=== PATIENT | female | born 1985 | race Caucasian/White ===

== ENCOUNTER 2024-10-29 21:00 | Emergency (ER) | payer OTHER, SELFPAY ==
[2024-10-29 21:04] VITALS: BP 126/88; PULSE 102; TEMP 36.5; O2SAT 98; BMI 53.0
--- NOTE | 2024-10-29 21:13 | CT_ITS ---
[address] [address] Patient Name: ARCHANA ABRAMS MRN: [id number] date: 1985 Sex: F Assigned Patient Location: ER Current Patient Location: ER Accession/Order Number: [id number] Exam Date: 10/29/2024 21:26 Report Date: 10/29/2024 21:44 At the request of: RODRIGO GARCIA Procedure: CT head/brain wo con EXAM: CT head/brain wo con HISTORY: headache COMPARISON: None. TECHNIQUE: Axial CT scans through the head were obtained without IV contrast administration. Dose reduction techniques were achieved by using: automated exposure control and/or adjustment of mA and /or kV according to patient size and/or use of iterative reconstruction technique. FINDINGS: There is no acute intracranial hemorrhage or abnormal extra-axial fluid collection. No mass effect or midline shift is seen. There is no evidence of large acute territorial infarction. There is no hydrocephalus. To the limit of CT, the posterior fossa appears unremarkable. The calvaria and extra cranial soft tissues are unremarkable. The visualized orbits show no abnormality. The visualized paranasal sinuses show no air-fluid level. Mastoid air cells are clear. CT/CT head/brain wo con IMPRESSION: No acute intracranial process. Electronically authenticated by: MOHIT RODRIGUEZ Date: 10/29/2024 21:44
--- NOTE | 2024-10-29 21:15 | ED.GENADUL1 ---
HPI HPI - General Adult General Chief complaint: Headache Stated complaint: HEADACHE Time Seen by Provider: 10/29/24 21:02 Source: patient Mode of arrival: walk-in Limitations: no limitations History of Present Illness HPI narrative: Left-sided headache Patient presents with waxing and waning headache that started 2 weeks ago, localized to the left side of her head and behind her left eye. She said that over time the headache is steadily been increasing but does admit that when she takes [id number] medications for the pain such as Excedrin, Tylenol, ibuprofen, the pain does go away for some period of time -anywhere from an hour to several hours. Her concern is that the pain keeps coming back and that each time it comes back it seems to be worse. No fever or chills. She did develop some nasal congestion and a mild cough yesterday. She did not have any injury to the head or neck preceding the onset of the headache and also did not have any URI symptoms preceding the headache. No associated visual change or aura either preceding or associated with the headache when she gets it. No nausea, vomiting. No muscle aches. She had previously been diagnosed with migraines but has not had a migraine type headache for several years until this 1 started 2 weeks ago. At no point was the pain explosive or the worst headache of her life. She currently rates her pain 6 out of 10 Related Data Previous Rx's ?Medication ?Instructions ?Recorded ondansetron 4 mg disintegrating 4 mg PO Q6H PRN headache #20 tabs 10/29/24 tablet Allergies Allergy/AdvReac Type Severity Reaction Status Date / Time No Known Drug Allergies Allergy Verified 10/29/24 21:04 Opioid HPI Opioid Management Most Recent Opioid Data: No Data to Display PFSH PFSH Social History Little interest or pleasure in doing things: not at all Feeling down, depressed, or hopeless: not at all Exam Narrative Exam Narrative: Nurses notes and vital signs reviewed and patient is not hypoxic. afebrile General: Well-appearing and in no apparent distress. Skin: Warm, dry, no pallor noted. No rash. Head: Normocephalic, atraumatic. Neck: Supple, non-tender. No nuchal rigidity. No lymphadenopathy. No meningismus Eye: Pupils are equal, round and EOMI. No scleral icterus. No nystagmus Ears, Nose, Mouth, and Throat: TM are clear, no posterior oropharynx erythema or nasal mucosal hypertrophy, uvula is mid-line Oral mucosa is moist Cardiovascular: Regular Rate and Rhythm without murmur, gallop or rub. Respiratory: No accessory muscle use or respiratory distress. Lungs are clear to auscultation, no wheezing, rales or rhonchi Musculoskeletal: normal ROM Neurological: A&O x4. No cranial nerve dysfunction observed. No truncal ataxia. Moves all extremities. Sensation intact. Psychiatric: Cooperative and interactive. Normal mood and affect. Constitutional Vital Signs, click to edit/add: Last Vital Signs Temp 97.7 F 10/29/24 21:04 Pulse 102 H 10/29/24 21:04 Resp 16 10/29/24 21:04 BP 126/88 10/29/24 21:04 Pulse Ox 98 10/29/24 21:04 O2 Del Method Room Air 10/29/24 21:04 Course Vital Signs Vital signs: Vital Signs Temperature 97.7 F 10/29/24 21:04 Pulse Rate 102 H 10/29/24 21:04 Respiratory Rate 16 10/29/24 21:04 Blood Pressure 126/88 10/29/24 21:04 Pulse Oximetry 98 10/29/24 21:04 Oxygen Delivery Method Room Air 10/29/24 21:04 Temperature 97.7 F 10/29/24 21:04 Pulse Rate 102 H 10/29/24 21:04 Respiratory Rate 16 10/29/24 21:04 Blood Pressure 126/88 10/29/24 21:04 Pulse Oximetry 98 10/29/24 21:04 Oxygen Delivery Method Room Air 10/29/24 21:04 Medical Decision Making MDM Narrative Medical decision making narrative: Due to the duration and steadily worsening of the patient's pain, she was sent for noncontrast CT scan of the brain. She received oral dissolvable Zofran, oral Toradol, oral prednisone 40 mg to try and break her headache CT scan of the brain did not show any acute worrisome pathology such as intracranial hemorrhage or mass. On recheck at 2200, the patient told me that her headache was decreased. She and i discussed her results, response to treatment and I gave her reassurance. She was discharged home with a prescription for odt zofran. She can see her PCP for follow up.. Imaging Data CT scan - head: Attestation: I have reviewed the pertinent imaging results. Radiologist's impression: ITS Impressions Head CT 10/29/24 21:13 IMPRESSION: No acute intracranial process. Electronically authenticated by: MOHIT RODRIGUEZ Date: 10/29/2024 21:44 Discharge Plan Discharge Chief Complaint: Headache Clinical Impression: Headache Patient Disposition: Home, Self-Care Time of Disposition Decision: 22:06 Prescriptions / Home Meds: New ondansetron 4 mg tablet,disintegrating 4 mg PO Q6H PRN (Reason: headache) Qty: 20 0RF Print Language: Mauritian Instructions: Acute Headache (ED) Referrals: [place] [Primary Care Provider] - 1 week
[2024-10-29] MEDS: PREDNISONE 20 MG TABLET 40 MG PO (21:38)
[2024-10-29] MEDS: ONDANSETRON 4 MG RAPDIS TABLET SL (21:39)
[2024-10-29] MEDS: KETOROLAC TROMETHAMINE 10 MG TABLET PO (21:39)
== END 2024-10-29 22:20 | disposition home or self-care (01) ==
PROVIDERS: Emergency Provider Emergency Medicine
DX: R51.9 Headache, unspecified (principal)
CPT/HCPCS: 70450; 99284; J7512; Q0162

== ENCOUNTER 2025-02-08 09:09 | Emergency (ER) | payer BC, OTHER, SELFPAY ==
[2025-02-08] VITALS (14 sets, daily range): BP systolic 136–149; BP diastolic 76–97; PULSE 77–93; TEMP 36.9; O2SAT 94–97; BMI 52.3
--- NOTE | 2025-02-08 09:31 | ECG_ITS ---
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 Measurements Intervals [place] Rate: 82 P: 47 WI: 150 QRS: 50 QRSD: 94 T: 57 QT: 404 QTc: 443 Interpretive Statements 1100 Sinus rhythm 9110 normal ECG No previous ECG available for comparison Electronically Signed On 02-08-2025 22:55:42 EDT by BETO PEMBERTON M.D.
--- NOTE | 2025-02-08 09:32 | ED.GENADUL1 ---
HPI HPI - General Adult General Chief complaint: Chest Pain Stated complaint: CHEST PAINS HEART PALPUTATIONS Time Seen by Provider: 02/08/25 09:18 Source: patient Mode of arrival: walk-in History of Present Illness HPI narrative: 39-year-old female presents for chest pain which began this morning. It is dull and it is continuous and it is on the left side of her chest. She has had this numerous times in the past and she states she has had numerous workups for it and nothing was ever found. She has been under a lot of stress recently. No cough or injury. Related Data Home Medications ?Medication ?Instructions ?Recorded ?Confirmed citalopram 20 mg tablet (Celexa) 20 mg PO DAILY 02/08/25 02/08/25 Allergies Allergy/AdvReac Type Severity Reaction Status Date / Time No Known Drug Allergies Allergy Verified 02/08/25 09:13 Review of Systems ROS Narrative A ten point review of systems is negative except as noted above. PFSH PFSH Social History Little interest or pleasure in doing things: not at all Feeling down, depressed, or hopeless: not at all Exam Narrative Exam Narrative: Nurses note and vital signs reviewed and patient is not hypoxic. General: The patient appears well and in no apparent distress. Patient is resting comfortably on cart. Skin: Warm, dry, no pallor noted. There is no rash noted. Head: Normocephalic, atraumatic Eye: Normal conjunctiva, no drainage Ears, Nose, Mouth, and Throat: oral mucosa is moist. Nares patent. Cardiovascular: Regular Rate and Rhythm Respiratory: Patient is in no distress, no accessory muscle use, lungs are clear to auscultation, no wheezing, rales or rhonchi Back: non-tender, GI: Soft and nontender Musculoskeletal: The patient has no evidence of calf tenderness, no pitting edema, symmetrical pulses noted bilaterally Neurological: A&O, normal speech Psychiatric: Cooperative Constitutional Vital Signs, click to edit/add: Last Vital Signs Temp 98.5 F 02/08/25 09:14 Pulse 82 02/08/25 10:20 Resp 19 02/08/25 10:20 BP 149/95 H 02/08/25 10:15 Pulse Ox 95 02/08/25 10:20 O2 Del Method Room Air 02/08/25 09:14 Course Vital Signs Vital signs: Vital Signs Temperature 98.5 F 02/08/25 09:14 Pulse Rate 82 02/08/25 09:14 Respiratory Rate 16 02/08/25 09:14 Blood Pressure 147/76 H 02/08/25 09:14 Pulse Oximetry 97 02/08/25 09:14 Oxygen Delivery Method Room Air 02/08/25 09:14 Temperature 98.5 F 02/08/25 09:14 Pulse Rate 82 02/08/25 10:20 Respiratory Rate 19 02/08/25 10:20 Blood Pressure 149/95 H 02/08/25 10:15 Pulse Oximetry 95 02/08/25 10:20 Oxygen Delivery Method Room Air 02/08/25 09:14 Medical Decision Making MDM Narrative Medical decision making narrative: Her workup is negative including troponin. I suspect that this may be due to stress. There is no evidence of cardiac or pulmonary etiology. Treatment diagnosis and follow-up were discussed with the patient. Differential Diagnosis Differential Diagnosis: Chest pain, myocardial infarction, pneumothorax, anxiety Lab Data Lab results reviewed: Yes I reviewed the patient's lab results Labs: Lab Results 02/08/25 Range/Units 09:30 WBC 10.8 (4.0-11.0) 10^3/uL RBC 4.68 (4.20-5.40) 10^6/uL Hgb 13.5 (12.0-16.0) g/dL Hct 39.8 (36.0-48.0) % MCV 85.0 (81.0-99.0) fL MCH 28.8 (26.7-34.0) pg MCHC 33.9 (29.9-35.2) g/dL RDW 13.7 (11.0-15.0) % Plt Count 230 (150-450) 10^3/uL MPV 8.5 L (9.5-13.5) fL Neut % (Auto) 58.0 (43.0-75.0) % Lymph % (Auto) 31.3 (20.5-60.0) % [place] % (Auto) 7.9 (1.7-12.0) % Eos % (Auto) 1.7 (0.9-7.0) % Baso % (Auto) 0.6 (0.2-2.0) % Neut # (Auto) 6.3 (1.4-6.5) 10^3/uL Lymph # (Auto) 3.4 (1.2-3.8) 10^3/uL [place] # (Auto) 0.9 H (0.3-0.8) 10^3/uL Eos # (Auto) 0.2 (0.0-0.7) 10^3/uL Baso # (Auto) 0.1 (0.0-0.1) 10^3/uL Abs Immat Gran (auto) 0.05 H (0.00-0.03) 10^3/uL Imm/Tot Granulo (auto) 0.5 (0.0-0.5) % Sodium 139 (136-145) mmol/L Potassium 3.6 (3.5-5.1) mmol/L Chloride 103 (98-107) mmol/L Carbon Dioxide 26.4 (21.0-32.0) mmol/L Anion Gap 13.2 BUN 10.0 (7.0-18.0) mg/dL Creatinine 0.76 (0.55-1.02) mg/dL Est GFR ( Amer) >60 (>=60 mL/min/1.73m^2) Est GFR (Non-Af Amer) >60 (>=60 mL/min/1.73m^2) BUN/Creatinine Ratio 13.2 Glucose 115 H (74-106) mg/dL Calcium 8.9 (8.5-10.1) mg/dL Troponin I High Sens <4.0 L (4.0-51.3) pg/mL Imaging Data Chest x-ray: Radiologist's impression: No plain film evidence of an acute cardiopulmonary process ECG Data Attestation: I personally reviewed and interpreted this ECG as follows: (EKG on my interpretation shows normal sinus rhythm with rate of 82 and no acute change) Discharge Plan Discharge Chief Complaint: Chest Pain Clinical Impression: Chest pain Patient Disposition: Home, Self-Care Time of Disposition Decision: 10:26 Condition: Good Mode of Transportation: Private Vehicle Prescriptions / Home Meds: No Action citalopram [Celexa] 20 mg tablet 20 mg PO DAILY Print Language: Maldivian Instructions: Chest Pain (ED) Referrals: [facility] [Physician, Internal Medicine] - 1 week
[2025-02-08 09:44] LABS: Basophils Absolute Auto 0.1 10^3/uL (0.0-0.1); Basophils Percent Auto 0.6 % (0.2-2.0); Eosinophils Absolute Auto 0.2 10^3/uL (0.0-0.7); Eosinophils Percent Auto 1.7 % (0.9-7.0); Hematocrit 39.8 % (36.0-48.0); Hemoglobin 13.5 g/dL (12.0-16.0); Immature Granulocytes Abs Auto 0.05 10^3/uL (0.00-0.03); Immature Granulocytes Pct Auto 0.5 % (0.0-0.5); Lymphocytes Absolute Auto 3.4 10^3/uL (1.2-3.8); Lymphocytes Percent Auto 31.3 % (20.5-60.0); Mean Corpuscular HGB Conc 33.9 g/dL (29.9-35.2); Mean Corpuscular Hemoglobin 28.8 pg (26.7-34.0); Mean Platelet Volume 8.5 fL (9.5-13.5); Monocytes Absolute Auto 0.9 10^3/uL (0.3-0.8); Monocytes Percent Auto 7.9 % (1.7-12.0); Neutrophils Absolute Auto 6.3 10^3/uL (1.4-6.5); Platelet Count 230 10^3/uL (150-450); Red Blood Count 4.68 10^6/uL (4.20-5.40); Red Cell Distribution Width 13.7 % (11.0-15.0); White Blood Count 10.8 10^3/uL (4.0-11.0)
--- OUTSIDE RECORDS SUMMARY | 2025-02-08 09:50 | XMS_ITS | CCD ---
Author Organization [facility] Care Team Providers Care Park Interpreter Name Role Phone NIMCO AMBER METCALF Unavailable Unavailable ARTEMIO MCGUIRE Admitting Unavailable SELF, REFERRED Primary Care Unavailable SELF, REFERRED Referring Unavailable MATTHEW LYNCH Attending Unavailable Po JAIMES, Neptali A Primary Care Provider [phone] Po JAIMES, Neptali Reeves Primary Care Provider [phone] PO, NEPTALI A Primary Care Unavailable ANTONETTE WHITEHEAD Referring Unavailable BEIDELSCHIES, NEPTALI A Primary Care Unavailable BEIDELSCHIES, NEPTALI A Primary Care Unavailable JOHANA SAGASTUME Attending Unavailable BEIDELSCHIES, NEPTALI A Primary Care Unavailable MATUSANA ROSA SOLANO Attending Unavaila ble MATUSZYNANA ROSA ANTONY Attending Unavaila ble MATUSZYNANA ROSA ANTONY Referring Unavaila ble BEIDELSCHIES, NEPTALI A Primary Care Unavailable SMITH MENDEZ Attending Unavailable BEIDELSCHIES, NEPTALI A Referring Unavailable BEIDELSCHIES, NEPTALI A Primary Care Unavailable BEIDELSCHIES, NEPTALI A Referring Unavailable BEIDELSCHIES, NEPTALI A Primary Care Unavailable BEIDELSCHIES, NEPTALI A Referring Unavailable BEIDELSCHIES, NEPTALI A Primary Care Unavailable Po JAIMES, Neptali A Primary Care Provider [phone] Allergies Allergy Classification Reported Allergen(s) Allergy Type Date of Onset Reaction(s) Facility (3 sources) nickel; Translations: [NICKEL] Drug Allergy 06-26-2022 Rash [facility] Medications Current Medications Medication Drug Class(es) Dates Sig (Normalized) Sig (Original) acetaminophen 500 mg oral tablet (2 sources) take 1 tablet by mouth every six hours as needed for pain acetaminophen (TYLENOL) 500 MG tablet Take 500 mg by mouth every 6 hours as needed for Pain. 0 Active ibuprofen 800 mg oral tablet (4 sources) Nonsteroidal Anti-inflammatory Drug Start: 10-25-2016 take 1 tablet by mouth every eight hours as needed ibuprofen (ADVIL,MOTRIN) 800 mg tablet Take 1 tablet (800 mg total) by mouth every 8 (eight) hours as needed. 0 10/25/2016 Active lidocaine 0.04 mg/mg medicated patch (1 source) Antiarrhythmic, Amide Local Anesthetic Start: 06-10-2022 End: 07-10-2022 lidocaine 4 % external patch Place 1 patch onto the skin every [address] 1 patch onto the skin daily 12 hours on, 12 hours off. 30 patch 0 06/10/2022 07/10/2022 Active naproxen 500 mg oral tablet (4 sources) Nonsteroidal Anti-inflammatory Drug Start: 06-10-2022 End: 09-20-2022 take 1 tablet by mouth twice daily as needed for pain naproxen (NAPROSYN) 500 mg tablet TAKE 1 TABLET BY MOUTH TWICE DAILY NEEDED FOR PAIN WITH MEALS 0 06/10/2022 Active oseltamivir 75 mg oral capsule (2 sources) Neuraminidase Inhibitor Start: 09-20-2022 End: 09-25-2022 take 1 capsule by mouth twice daily oseltamivir (TAMIFLU) 75 MG capsule Take 1 capsule by mouth 2 times daily for 5 days 9 capsule 0 09/20/2022 09/25/2022 Active Completed/Discontinued Medications Medication Drug Class(es) Dates Sig (Normalized) Sig (Original) acetaminophen 325 mg / HYDROcodone bitartrate 5 mg oral tablet (1 source) Opioid Agonist Start: 06-10-2022 End: 06-10-2022 HYDROcodone-acetami nophen (NORCO) 5-325 MG per tablet 1 tablet cholecalciferol 0.05 mg oral tablet (2 sources) Vitamin D End: 10-09-2023 take 2 tablets by mouth in the morning cholecalciferol, vitamin D3, 2,000 units tablet Take 4,000 Units by mouth in the morning. 0 10/09/2023 Discontinued cyclobenzaprine hydrochloride 10 mg oral tablet (3 sources) Muscle Relaxant Start: 06-10-2022 End: 10-09-2023 take 1 tablet by mouth three times daily as needed cyclobenzaprine (FLEXERIL) 10 mg tablet Take 10 mg by mouth 3 (three) times a day as needed. 0 06/10/2022 10/09/2023 Discontinued iopamidol (ISOVUE-370) 76 % injection 75 mL (1 source) Start: 06-10-2022 End: 06-10-2022 iopamidol (ISOVUE-370) 76 % injection 75 mL 1 ml ketorolac tromethamine 30 mg/ml cartridge (1 source) Nonsteroidal Anti-inflammatory Drug, Cyclooxygenase Inhibitor Start: 06-10-2022 End: 06-10-2022 ketorolac (TORADOL) injection 30 mg metFORMIN hydrochloride 500 mg oral tablet (4 sources) Biguanide Start: 03-25-2021 End: 10-09-2023 metFORMIN (GLUCOPHAGE) 500 mg tablet 500 mg 3 (three) times a day. 0 03/25/2021 10/09/2023 Discontinued metFORMIN (GLUCO PHAGE) 1000 MG tablet Take 1,500 mg by mouth 2 times daily (with meals) 0 Active 2 ml orphenadrine citrate 30 mg/ml injection (1 source) Muscle Relaxant Start: 06-10-2022 End: 06-10-2022 orphenadrine (NORFLEX) injection 60 mg Problems Active Problems Problem Classification Problem Date Documented Da te Episodic/Chronic Administrative/social admission (2 sources) Encounter for pre-employment examination; Translations: [Encounter for pre-employment examination] Onset: 05-29-2023 Episodic Genitourinary symptoms and ill-defined conditions (1 source) Hematuria, unspecified; Translations: [Hematuria, unspecified] Onset: 07-04-2024 Episodic Malaise and fatigue (1 source) Other fatigue; Translations: [Other fatigue] Onset: 07-04-2024 Episodic Other endocrine disorders (3 sources) Polycystic ovary syndrome; Translations: [Polycystic ovarian syndrome] Onset: 05-04-2017 Chronic Other endocrine disorders (1 source) Polycystic ovarian syndrome; Translations: [Polycystic ovarian syndrome] Onset: 06-10-2022 Chronic Other endocrine disorders (2 sources) Hyperinsulinism; Translations: [Other hypoglycemia] Onset: 06-29-2017 06-29-2017 Chronic Other female genital disorders (2 sources) Abnormal uterine bleeding; Translations: [Abnormal uterine and vaginal bleeding, unspecified] Onset: 05-04-2017 05-04-2017 Chronic Other hematologic conditions (1 source) Personal history of diseases of the blood and blood-forming organs and certain disorders involving the immune mechanism; Translations: [Personal history of diseases of the blood and blood-forming organs and certain disorders involving the immune mechanism] Onset: 07-04-2024 Episodic Other nutritional; endocrine; and metabolic disorders (2 sources) Body mass index 40+ - severely obese; Translations: [Body mass index (BMI) 50.0-59.9, adult] Onset: 05-04-2017 05-04-2017 Chronic Other nutritional; endocrine; and metabolic disorders (2 sources) Insulin resistance; Translations: [Insulin resistance] Onset: 05-04-2017 05-04-2017 Chronic Unclassified (1 source) Foot/ankle pain Onset: 02-10-2024 Unclassified (1 source) Cough, unspecified; Translations: [Cough, unspecified] Onset: 10-12-2023 Past or Other Problems Problem Classification Problem Date Documented Da te Episodic/Chronic Abdominal pain (2 sources) Pain in pelvis; Translations: [Pelvic and perineal pain] Onset: 06-18-2022 06-18-2022 Episodic Influenza (4 sources) Influenza; Translations: [Influenza due to unidentified influenza virus with other respiratory manifestations] Onset: 09-20-2022 Episodic Nonspecific chest pain (6 sources) Precordial pain; Translations: [Chest pain] Onset: 03-27-2021 03-27-2021 Episodic Other connective tissue disease (1 source) Foot pain Onset: 02-10-2024 Episodic Other lower respiratory disease (1 source) Shortness of breath; Translations: [Shortness of breath] Onset: 10-12-2023 Episodic Other non-traumatic joint disorders (1 source) Pain in right ankle and joints of right foot; Translations: [Pain in right ankle and joints of right foot] Onset: 02-10-2024 Episodic Other non-traumatic joint disorders (1 source) Ankle pain Onset: 02-10-2024 Episodic Ovarian cyst (2 sources) Cyst of bilateral ovaries; Translations: [Unspecified ovarian cyst, right side] Onset: 06-18-2022 Resolved: 07-15-2022 07-15-2022 Episodic Sprains and strains (2 sources) Strain of back muscle; Translations: [Strain of muscle, fascia and tendon of lower back, initial encounter] Onset: 06-10-2022 Episodic Unclassified (2 sources) Onset: 06-12-2022 06-12-2022 Viral infection (2 sources) Disease caused by 2019-nCoV; Translations: [COVID-19] Onset: 03-28-2021 03-28-2021 Episodic Results Test Name Value Interpretation Reference Range Facility COMPLETE BLOOD COUNTon 07-04 Erythrocyte distribution width (RBC) [Ratio] 14.5 % Normal 11.5-15.0 [facility] Comment on above: Performed By: #### C MP, CBC #### [facility] ([id number]) [address], [address] [place] [address] Hematocrit (Bld) [Volume fraction] 38.5 % Normal 35-47 [facility] Comment on above: Performed By: #### C MP, CBC #### [facility] ([id number]) [address], [address] [place] [address] Hemoglobin (Bld) [Mass/Vol] 13.4 g/dL Normal 11.7-15.5 [facility] Comment on above: Performed By: #### C MP, CBC #### [facility] ([id number]) [address], [address] [place] [address] MCH (RBC) [Entitic mass] 29.7 pg Normal 27-34 [facility] Comment on above: Performed By: #### C MP, CBC #### [facility] ([id number]) [address], [address] [place] [address] MCHC (RBC) [Mass/Vol] 34.7 g/dL Normal 32-36 [facility] Comment on above: Performed By: #### C MP, CBC #### [facility] ([id number]) [address], [address] [place] [address] MCV (RBC) [Entitic vol] 86 fL Normal 80-100 [facility] Comment on above: Performed By: #### C MP, CBC #### [facility] ([id number]) [address], [address] [place] [address] Platelet mean volume (Bld) [Entitic vol] 7.7 fL Normal 7-12 [facility] Comment on above: Performed By: #### C MP, CBC #### [facility] ([id number]) [address], [address] [place] [address] Platelets (Bld) [#/Vol] 222 10*3/uL Normal 150-450 [facility] Comment on above: Performed By: #### C MP, CBC #### [facility] ([id number]) [address], [address] [place] [address] RBC COUNT 4.50 X10E12/L Normal 3.80-5.20 [facility] Comment on above: Performed By: #### C MP, CBC #### [facility] ([id number]) [address], [address] [place] [address] WBC (Bld) [#/Vol] 9.1 10*3/uL Normal 4.0-11.0 [facility] Comment on above: Performed By: #### C MP, CBC #### [facility] ([id number]) [address], [address] [place] [address] COMPREHENSIVE METABOLIC PANE Vitor 07-04-2024 Albumin [Mass/Vol] 3.8 g/dL Normal 3.2-5.3 [facility] Comment on above: Performed By: #### C MP, CBC #### [facility] ([id number]) [address], [address] [place] [address] ALP [Catalytic activity/Vol] 62 U/L Normal 39-130 [facility] Comment on above: Performed By: #### C MP, CBC #### [facility] ([id number]) [address], [address] [place] [address] ALT [Catalytic activity/Vol] 14 U/L Normal 0-31 [facility] Comment on above: Performed By: #### C MP, CBC #### [facility] ([id number]) [address], [address] [place] [address] Anion gap [Moles/Vol] 11 mmol/L Normal 5-15 [facility] Comment on above: Performed By: #### C MP, CBC #### [facility] ([id number]) [address], [address] [place] [address] AST [Catalytic activity/Vol] 14 U/L Normal 0-41 [facility] Comment on above: Performed By: #### C MP, CBC #### [facility] ([id number]) [address], [address] [place] [address] Bilirubin [Mass/Vol] 0.4 mg/dL Normal 0.3-1.2 [facility] Comment on above: Performed By: #### C CAPRICE, CBC #### [facility] ([id number]) [address], [address] [place] [address] Calcium [Mass/Vol] 8.6 mg/dL Normal 8.5-10.5 [facility] Comment on above: Performed By: #### C MP, CBC #### [facility] ([id number]) [address], [address] [place] [address] Chloride [Moles/Vol] 105 mmol/L Normal 98-109 [facility] Comment on above: Performed By: #### C MP, CBC #### [facility] ([id number]) [address], [address] [place] [address] CO2 [Moles/Vol] 24 mmol/L Normal 22-32 [facility] Comment on above: Performed By: #### C MP, CBC #### [facility] ([id number]) [address], [address] [place] [address] Creatinine [Mass/Vol] 0.51 mg/dL Normal 0.40-1.00 [facility] Comment on above: Result Comment: METH OD TRACEABLE TO IDMS STANDARD Performed By: #### C MP, CBC #### [facility] ([id number]) [address], [address] [place] [address] eGFR (CKD-EPI) NON-RACE DEPENDENT >90 Normal >59 [facility] Comment on above: Result Comment: Reported eGFR is based on the CKD-EPI 2020 equation that does not use a race coefficient. Performed By: #### C MP, CBC #### [facility] ([id number]) [address], [address] [place] [address] Glucose [Mass/Vol] 97 mg/dL Normal 65-99 [facility] Comment on above: Performed By: #### C MP, CBC #### [facility] ([id number]) [address] [address] [place] [address] Potassium [Moles/Vol] 3.5 mmol/L Normal 3.5-5.0 [facility] Comment on above: Performed By: #### C MP, CBC #### [facility] ([id number]) [address], [address] [place] [address] Protein [Mass/Vol] 6.9 g/dL Normal 6.0-8.0 [facility] Comment on above: Performed By: #### C MP, CBC #### [facility] ([id number]) [address] [address] [place] [address] Sodium [Moles/Vol] 140 mmol/L Normal 134-146 [facility] Comment on above: Performed By: #### C MP, CBC #### [facility] ([id number]) [address], [address] [place] [address] Urea nitrogen [Mass/Vol] 8 mg/dL Normal 5-23 [facility] Comment on above: Performed By: #### C MP, CBC #### [facility] ([id number]) [address] [place] [address] URINALYSISon 07-04-2024 Bilirubin Ql (U) Negative Normal NEG [facility] Comment on above: Performed By: #### U A #### [facility] ([id number]) [address], [address] [place] [address] BLOOD/HGB Small Abnormal NEG [facility] Comment on above: Performed By: #### U A #### [facility] ([id number]) [address] [place] [address] Color (U) YELLOW Normal YELLOW [facility] Comment on above: Performed By: #### U A #### [facility] ([id number]) [address], [address] [place] [address] Glucose Ql (U) Negative Normal NEG [facility] Comment on above: Performed By: #### U A #### [facility] ([id number]) [address], [address] [place] [address] Ketones Ql (U) Negative Normal NEG [facility] Comment on above: Performed By: #### U A #### [facility] ([id number]) [address], [address] [place] [address] Leukocyte esterase Test strip Ql (U) Negative Normal NEG [facility] Comment on above: Performed By: #### U A #### [facility] ([id number]) [address], [address] [place] [address] MUCOUS PRESENT Abnormal NONE [facility] Comment on above: Performed By: #### U A #### [facility] ([id number]) [address], [address] [place] [address] Nitrite Ql (U) Negative Normal NEG [facility] Comment on above: Performed By: #### U A #### [facility] ([id number]) [address], [address] [place] [address] pH (U) 6.5 [pH] Normal 5.0-8.5 [facility] Comment on above: Performed By: #### U A #### [facility] ([id number]) [address], [address] [place] [address] Protein Ql (U) Trace Abnormal NEG [facility] Comment on above: Performed By: #### U A #### [facility] ([id number]) [address], [address] [place] [address] R.B.CELLS 3 /hpf Normal 0-5 [facility] Comment on above: Performed By: #### U A #### [facility] ([id number]) [address], [address] [place] [address] Specific gravity (U) [Rel density] 1.017 Normal 1.003-1.035 [facility] Comment on above: Performed By: #### U A #### [facility] ([id number]) [address], [address] [place] [address] SQUAMOUS EPITHELIUM 4 /hpf Normal 0-5 [facility] Comment on above: Performed By: #### U A #### [facility] ([id number]) [address], [address] [place] [address] TURBIDITY CLEAR Normal CLEAR [facility] Comment on above: Performed By: #### U A #### [facility] ([id number]) [address], [address] [place] [address] Urobilinogen (U) [Mass/Vol] mg/dL Normal <1.1 [facility] Comment on above: Performed By: #### U A #### [facility] ([id number]) [address], [address] [place] [address] W.B.CELLS 3 /hpf Normal 0-5 [facility] Comment on above: Performed By: #### U A #### [facility] ([id number]) [address] [place] [address] XR ANKLE RT MIN 3 VWSon 01-26 XR ANKLE RT MIN 3 VWS XR ANKLE RT MIN 3 VWS . Right ankle: HISTORY: Ankle pain post injury. 3 views the right ankle were obtained. Calcaneal spurring noted. Large enthesophyte present at the Achilles insertion. Ankle mortise is intact. IMPRESSION: No acute findings. 4 Finalized by Rubin Junior MD on 02/10/2024 1:50 PM Normal [facility] XR FOOT RT MIN 3 VWSon 02-09 XR FOOT RT MIN 3 VWS XR FOOT RT MIN 3 VWS 3 views of the right foot dated 02/10/2024 at 1:44 PM INDICATION: Pain along the lateral aspect of the right foot. FINDINGS: Comparison is 03/02/2011. Ossification by the proximal fourth metatarsal, could be due to old injury. Heterotopic ossification also seen at the insertion of the gastrocnemius consistent with tendinopathy. Degenerative changes in the ankle and in the midfoot. No acute fractures or subluxation is seen. No lucencies or destructive changes. If pain persists, consider MRI. IMPRESSION: 1. Degenerative changes and heterotopic ossification noted along the proximal fourth metatarsal and at the insertion of the gastrocnemius. No acute fracture is seen. 7 Finalized by Alejandra Saldana MD on 02/10/2024 1:57 PM Normal [facility] XR CHEST 2 VWSon 10-12-2023 XR CHEST 2 VWS XR CHEST 2 VWS CHEST RADIOGRAPH 10/12/2023 12:02 PM CLINICAL INDICATION: Cough, shortness of breath for 2 weeks TECHNIQUE: Frontal and lateral views of the chest. COMPARISON: Multiple priors, most recent 07/14/2023 FINDINGS: Lungs: Lungs are free of infiltrate. No pleural effusion or pneumothorax. Heart: Heart size is normal. No vascular congestion. Mediastinum: Mediastinal contour is normal. Other: No displaced fractures or destructive bone lesions identified. IMPRESSION: 1. No acute process. 7 Finalized by Bimal Borden MD on 10/12/2023 3:31 PM Normal [facility] Measles (Rubeola) Imon 06-01 Measles (Rubeola) Im 1.74 Normal >1.09 [facility] Comment on above: Result Comment: Interpretation: IMMUNE Reference Range: <0.91 Not Immune 0.91-1.09 Equivocal >1.09 Immune Performed By: #### C OVRB #### [facility] [address] [place] [address] [place] [address] Founder: Carlos Mckoy MD Mumps,Immun,Abon 06-01-2023 Mumps,Immun,Ab 2.34 Normal >1.09 [facility] Comment on above: Result Comment: Interpretation: IMMUNE Reference Range: <0.91 Not Immune 0.91-1.09 Equivocal >1.09 Immune Performed By: #### C OVRB #### [address] [place], [place] [id number] Founder: Carlos Mckoy MD VZ Immunityon 06-01-2023 VZ Immunity 1.21 Normal >1.[address] [facility] Comment on above: Result Comment: Interpretation: IMMUNE Reference Range: <0.91 Not Immune 0.91-1.09 Equivocal >1.09 Immune Performed By: #### C OVRB #### [address] [place] [address] Founder: Carlos Mckoy MD Hep B Surf Abon 05-30-2023 Hep B Surf Ab 213.00 mIU/mL High <10 [facility] Comment on above: Result Comment: REFERENCE RANGE: <10.0 NON-REACTIVE/NOT IMMUNE >=10.0 REACTIVE/IMMUNE The presence of Anti-HBs usually indicates recovery from acute or chronic HBV infection or acquired immunity from HBV vaccination. Positive results (quantitative levels of equal to or greater than 10.0 mIU/mL) indicate an adequate immunity from previous infection, vaccination or immune globulin adminstration. Anti-HBc would help define positivity due to Hepatitis B infection. Performed By: #### C OVRB #### [facility] [address] [place] [address] Founder: Carlos Mckoy MD Rubella Ab, IgGon 05-30-2023 Rubella Ab, IgG >500.0 Normal [facility] Comment on above: Result Comment: REFERENCE RANGE: <5.0 NON-REACTIVE (non-immune) 5.0 TO 9.9 EQUIVOCAL >=10.0 REACTIVE (immune) Performed By: #### C OVRB #### [facility] [address] [place] [address] Founder: Carlos Mckoy MD COVID-19, Rapidon 09-20-2022 SARS-CoV-2 (COVID-19) RNA JEAN MARIE+probe Ql (Unsp spec) Not detected Not Detected [facility] Comment on above: Rapid NAAT: The specimen is NEGATIVE for SARS-CoV-2, the novel coronavirus associated with COVID-19. The ID NOW COVID-19 assay is designed to detect the virus that causes COVID-19 in patients with signs and symptoms of infection who are suspected of COVID-19. An individual without symptoms of COVID-19 and who is not shedding SARS-CoV-2 virus would expect to have a negative (not detected) result in this assay. Negative results should be treated as presumptive and, if inconsistent with clinical signs and symptoms or necessary for patient management, should be tested with an alternative molecular assay. Negative results do not preclude SARS-CoV-2 infection and should not be used as the sole basis for patient management decisions. Fact sheet for Healthcare Providers: https://www.fda.gov/media/875541/download Fact sheet for Patients: https://www.fda.gov/media/126789/download Methodology: Isothermal Nucleic Acid Amplification Specimen Description .NASOPHARYNGEAL SWAB [facility] Flu A/B Ag Detectionon 09-20 Flu A Ag Detection Positive Abnormal NEG [facility] Comment on above: Result Comment: for Influenza A Antigen Performed By: #### F LUABA #### [facility] [address] [place] [address] Founder: Carlos Mckoy MD Flu B Ag Detection Negative Normal NEG [facility] Comment on above: Result Comment: for Influenza B Antigen. Performed By: #### F LUABA #### [facility] [address] [place] [address] Founder: Carlos Mckoy MD Rapid influenza A/B antigens on 09-20-2022 Flu A Antigen Positive Abnormal NEGATIVE [facility] Comment on above: for Influenza A Anti gen Flu B Antigen Negative NEGATIVE [facility] Comment on above: for Influenza B Anti gen. Interpretation and review of laboratory results Abnormal [facility] [id number] 09-20-2022 SARS-CoV-2 (COVID-19) RNA JEAN MARIE+probe Ql (Unsp spec) Not detected Normal NOTDET [facility] Comment on above: Result Comment: Rapid NAAT: The specimen is NEGATIVE for SARS-CoV-2, the novel coronavirus associated with COVID-19. The ID NOW COVID-19 assay is designed to detect the virus that causes COVID-19 in patients with signs and symptoms of infection who are suspected of COVID-19. An individual without symptoms of COVID-19 and who is not shedding SARS-CoV-2 virus would expect to have a negative (not detected) result in this assay. Negative results should be treated as presumptive and, if inconsistent with clinical signs and symptoms or necessary for patient management, should be tested with an alternative molecular assay. Negative results do not preclude SARS-CoV-2 infection and should not be used as the sole basis for patient management decisions. Fact sheet for Healthcare Providers: https://www.fda.gov/media/670998/download Fact sheet for Patients: https://www.fda.gov/media/120156/download Methodology: Isothermal Nucleic Acid Amplification Performed By: #### C OVRB #### [facility] [address] [place] [address] Founder: Carlos Mckoy MD Strep Gr A Direct Agon 09-20 Strep Gr A Direct Ag Negative Normal NEG [facility] Comment on above: Result Comment: Rapi d Strep A negative. A negative Rapid Group A Strep Screen result does not rule out the possibility of Group A Streptococci in the specimen. A Group A Strep DNA test is available upon request. Performed By: #### C OVRB #### [facility] [address] [place] [address] Founder: Carlos Mckoy MD Source .THROAT SWAB Normal [facility] Comment on above: Performed By: #### C OVRB #### [facility] [address] [place] [address] Founder: Carlos Mckoy MD Strep Screen Group A Throato n 09-20-2022 S. pyogenes Ag Ql (Throat) Negative NEGATIVE [facility] Comment on above: Rapid Strep A negati ve. A negative Rapid Group A Strep Screen result does not rule out the possibility of Group A Streptococci in the specimen. A Group A Strep DNA test is available upon request. Source .THROAT SWAB [facility] XR CHEST (SINGLE VIEW FRONTA L)on 09-20-2022 XR CHEST (SINGLE VIEW FRONTAL) EXAMINATION: ONE XRAY VIEW OF THE CHEST 09/20/2022 1:34 am COMPARISON: 12/22/2017 HISTORY: ORDERING SYSTEM PROVIDED HISTORY: sob cough TECHNOLOGIST PROVIDED HISTORY: sob cough FINDINGS: The lungs are clear. The cardiac and mediastinal contours are normal. There is no pleural effusion or pneumothorax. No acute osseous abnormality is identified. IMPRESSION: No acute cardiopulmonary abnormality. Interpreted by: Denis Brannon MD Signed by: Denis Brannon MD 09/20/22 Final result Normal [facility] No acute cardiopulmonary abnormality. [facility] CONSOLIDATED EXAMINATION: ONE XRAY VIEW OF THE CHEST 09/20/2022 1:34 am COMPARISON: 12/22/2017 HISTORY: ORDERING SYSTEM PROVIDED HISTORY: sob cough TECHNOLOGIST PROVIDED HISTORY: sob cough FINDINGS: The lungs are clear. The cardiac and mediastinal contours are normal. There is no pleural effusion or pneumothorax. No acute osseous abnormality is identified. [facility] RIS CONSOLIDATED Denis Brannon MD - 09/20/2022 EXAMINATION: ONE XRAY VIEW OF THE CHEST 09/20/2022 1:34 am COMPARISON: 12/22/2017 HISTORY: ORDERING SYSTEM PROVIDED HISTORY: sob cough TECHNOLOGIST PROVIDED HISTORY: sob cough FINDINGS: The lungs are clear. The cardiac and mediastinal contours are normal. There is no pleural effusion or pneumothorax. No acute osseous abnormality is identified. IMPRESSION: No acute cardiopulmonary abnormality. [employer] Phone: Radiology Study observation (narrative) [employer] Phone: XR CHEST (SINGLE VIEW FRONTA L)Ordered By: Denis Brannon on 09-20-2022 [employer] Phone: US DUP ABD PEL RETRO SCROT L IMITEDon 06-11-2022 US DUP ABD PEL RETRO SCROT LIMITED EXAMINATION: PELVIC ULTRASOUND 06/10/2022 TECHNIQUE: Transabdominal and transvaginal pelvic duplex ultrasound using B-mode/baker scaled imaging, Doppler spectral analysis and color flow Doppler was obtained. COMPARISON: CT 06/10/2022 HISTORY: ORDERING SYSTEM PROVIDED HISTORY: Pain, Rule out Torsion TECHNOLOGIST PROVIDED HISTORY: Pain, Rule out Torsion FINDINGS: Measurements: Uterus: 8.3 x 5.2 x 3.8 cm Endometrial stripe: 13 mm Right Ovary: 2.6 x 2.5 x 1.5 cm Left Ovary: 4.7 x 3.5 x 2.3 cm Ultrasound Findings: Uterus: Uterus demonstrates normal myometrial echotexture. Nabothian cysts. Endometrial stripe: Endometrial stripe is within normal limits. Right Ovary: Right ovary is within normal limits. There is normal arterial and venous Doppler flow. Simple appearing cyst measuring up to 6.6 cm appears paraovarian. Left Ovary: Left ovary is within normal limits. There is normal arterial and venous Doppler flow. Simple appearing cyst measuring up to 8 cm, which may be paraovarian. Free Fluid: No evidence of free fluid. IMPRESSION: 1. No evidence for torsion. 2. Simple appearing pelvic cysts are favored to be paraovarian, for which follow-up ultrasound in 3-6 months is recommended. RECOMMENDATIONS: 8 cm left paraovarian probable benign cyst. Recommend follow-up pelvic US in 3-6 months. Reference: Radiology 2019 Jul;293(5):[id number] Interpreted by: Denis Howe MD Signed by: Denis Howe MD 06/11/22 Final result Normal [facility] Basic Metabolic Panelon 05-29 Anion gap [Moles/Vol] 9 mmol/L 9 - 17 mmol/L [facility] Calcium [Mass/Vol] 9.9 mg/dL 8.6 - 10. 4 mg/dL [facility] Chloride [Moles/Vol] 102 mmol/L 98 - 10 7 mmol/L [facility] CO2 [Moles/Vol] 27 mmol/L 20 - 31 mmol/L [facility] Creatinine [Mass/Vol] 0.49 mg/dL Low 0.5 - 0.9 mg/dL [facility] GFR >60 60 - PI NF mL/min [facility] GFR Non- >60 60 - PINF mL/min [facility] Glucose [Mass/Vol] 101 mg/dL High 70 - 99 mg/dL [facility] Interpretation and review of laboratory results Abnormal [facility] Potassium [Moles/Vol] 4.0 mmol/L 3.7 - 5.3 mmol/L [facility] Sodium [Moles/Vol] 138 mmol/L 135 - 144 mmol/L [facility] Urea nitrogen (BldV) [Mass/Vol] 8 mg/dL 6 - 20 mg/dL [facility] Urea nitrogen/Creatinine (Bld) [Mass ratio] 16 9 - 20 [facility] Basic Metabolic Profon 06-10 (cont.) Normal [facility] Comment on above: Result Comment: Aver age GFR for 30-39 years old: 107 mL/min/1.73sq m Chronic Kidney Disease: <60 mL/min/1.73sq m Kidney failure: <15 mL/min/1.73sq m eGFR calculated using average adult body mass. Additional eGFR calculator available at: http://www.[employer].com/multiple_crcl_2012.htm Performed By: #### C OVRB #### [facility] [address] [place], [place] [id number] Founder: Carlos Mckoy MD Anion gap [Moles/Vol] 9 mmol/L Normal 9-17 [facility] Comment on above: Performed By: #### C OVRB #### [facility] [address] [place] [address] Founder: Carlos Mckoy MD BUN/CRE Ratio 16 Normal 9-20 [facility] Comment on above: Performed By: #### C OVRB #### [address] [place] [address] Founder: Carlos Mckoy MD Calcium [Mass/Vol] 9.9 mg/dL Normal 8.6-10.[address] [facility] Comment on above: Performed By: #### C OVRB #### [address] [place] [address] Founder: Carlos Mckoy MD Chloride [Moles/Vol] 102 mmol/L Normal 98-107 [facility] Comment on above: Performed By: #### C OVRB #### [facility] [address] [place] [address] [place] [address] Founder: Carlos Mckoy MD CO2 [Moles/Vol] 27 mmol/L Normal 20-31 [facility] Comment on above: Performed By: #### C OVRB #### [facility] [address] [place] [address] Dr[address] [place], [place] [id number] Founder: Carlos Mckoy MD Creatinine [Mass/Vol] 0.49 mg/dL Low 0.50-0.90 [facility] Comment on above: Performed By: #### C OVRB #### [facility] [address] [place] [address] Dr[address] [place], [place] [id number] Founder: Carlos Mckoy MD GFR, Amer >60 Normal >60 [facility] Comment on above: Performed By: #### C OVRB #### [facility] [address] [place], [place] [id number] Founder: Carlos Mckoy MD GFR,non Amer >60 Normal >60 [facility] Comment on above: Performed By: #### C OVRB #### [facility] [address] [place] [id number] Founder: Carlos Mckoy MD Glucose [Mass/Vol] 101 mg/dL High 70-[address] [facility] Comment on above: Performed By: #### C OVRB #### [facility] [address] [place] [address] Dr[address] [place], [place] [id number] Founder: Carlos Mckoy MD Potassium [Moles/Vol] 4.0 mmol/L Normal 3.7-5.3 [facility] Comment on above: Performed By: #### C OVRB #### [facility] [address] [place] [address] Dr. [place], [place] [id number] Founder: Carlos Mckoy MD Sodium [Moles/Vol] 138 mmol/L Normal 135-[address] [facility] Comment on above: Performed By: #### C OVRB #### [facility] [address] [place], [place] [id number] Founder: Carlos Mckoy MD Staging: Normal [facility] Comment on above: Result Comment: Stag e 1: Some kidney damage normal GFR Stage 2: Mild kidney damage GFR 60-89 Stage 3: Moderate kidney damage GFR 30-59 Stage 4: Severe kidney damage GFR 15-29 Stage 5: Severe kidney damage GFR <15 ESRD - chronic treatment by dialysis or transplant Performed By: #### C OVRB #### [facility] [address] [place] [id number] Founder: Carlos Mckoy MD Urea nitrogen [Mass/Vol] 8 mg/dL Normal 6-[address] [facility] Comment on above: Performed By: #### C OVRB #### [facility] [address] [place] [address] Founder: Carlos Mckoy MD CBC with Auto Differentialon 06-10-2022 Absolute Eos # 0.40 [facility] Absolute Immature Granulocyte 0.12 [facility] Absolute Lymph # 3.13 [facility] Absolute [place] # 1.08 [facility] Basophils (Bld) [#/Vol] 0.07 10*3/uL [facility] Basophils/100 WBC (Bld) 1 % 0 - 2 % B ON [facility] Eosinophils/100 WBC (Bld) 3 % 1 - 4 % [facility] Hematocrit (Bld) [Volume fraction] 40.2 % 36.3 - 47.1 % [facility] Hemoglobin (Bld) [Mass/Vol] 13.2 g/dL 11.9 - 15.1 g/dL [facility] Immature granulocytes/100 WBC (Bld) 1 % High 0 [facility] Interpretation and review of laboratory results Abnormal [facility] Lymphocytes/100 WBC (Bld) 25 % 24 - 43 % [facility] MCH (RBC) [Entitic mass] 28.6 pg 25.2 - 33.5 pg [facility] MCHC (RBC) [Mass/Vol] 32.8 g/dL 28.4 - 34.8 g/dL [facility] MCV (RBC) [Entitic vol] 87.0 fL 82.6 - 102.9 fL [facility] Monocytes/100 WBC (Bld) 9 % 3 - 12 % B ON [facility] NRBC Automated 0.0 0.0 per 100 WBC [facility] Platelet distribution width (Bld) [Ratio] 13.7 % 11.8 - 14.4 % [facility] Platelet mean volume (Bld) [Entitic vol] 8.7 fL 8.1 - 13.5 fL [facility] Platelets (Bld) [#/Vol] 255 10*3/uL [facility] RBC (Bld) [#/Vol] 4.62 10*6/uL 3.95 - 5.1 1 m/uL [facility] Segmented neutrophils/100 WBC (Bld) 61 % 36 - 65 % [facility] Segs Absolute 7.56 [facility] WBC (Bld) [#/Vol] 12.4 10*3/uL High [facility] CBC with Diffon 06-10-2022 Abs. Basophil 0.07 k/uL Normal 0.00-0.20 [facility] Comment on above: Performed By: #### C DP, BMP #### [facility] [address] [place] [address] [place] [id number] Founder: Carlos Mckoy MD Abs.Imm.Granulocyte 0.12 k/uL Normal 0.00-0.[address] [facility] Comment on above: Performed By: #### C DP, BMP #### [facility] [address] [place], [facility] Founder: Carlos Mckoy MD Abs.Neutrophil (Seg) 7.56 k/uL Normal 1.50-8.10 [facility] Comment on above: Performed By: #### C DP, BMP #### [address] [place], [facility] Founder: Carlos Mckoy MD Basophils/100 WBC (Bld) 1 % Normal 0-2 [facility] Comment on above: Performed By: #### C DP, BMP #### [facility] [address] [place] [address] Founder: Carlos Mckoy MD Eosinophils (Bld) [#/Vol] 0.40 10*3/uL Normal 0.00-0.[address] [facility] Comment on above: Performed By: #### C DP, BMP #### [facility] [address] [place] [address] Dr. [place], [facility] Founder: Carlos Mckoy MD Eosinophils/100 WBC (Bld) 3 % Normal 1-[address] [facility] Comment on above: Performed By: #### C DP, BMP #### [address] [place], [facility] Founder: Carlos Mckoy MD Erythrocyte distribution width (RBC) [Ratio] 13.7 % Normal 11.8-14.[address] [facility] Comment on above: Performed By: #### C DP, BMP #### [address] [place], [facility] Founder: Carlos Mckoy MD Hematocrit (Bld) [Volume fraction] 40.2 % Normal 36.3-47.[address] [facility] Comment on above: Performed By: #### C DP, BMP #### [address] [place], [facility] Founder: Carlos Mckoy MD Hemoglobin (Bld) [Mass/Vol] 13.2 g/dL Normal 11.9-15.[address] [facility] Comment on above: Performed By: #### C DP, BMP #### [address] [place], [facility] Founder: Carlos Mckoy MD Immature granulocytes/100 WBC (Bld) 1 % High [address] [facility] Comment on above: Performed By: #### C DP, BMP #### [address] [place], [facility]83 Founder: Carlos Mckoy MD Lymphocytes (Bld) [#/Vol] 3.13 10*3/uL Normal 1.10-3.[address] [facility] Comment on above: Performed By: #### C DP, BMP #### [address] [place], [facility] Founder: Carlos Mckoy MD Lymphocytes/100 WBC (Bld) 25 % Normal 24-[address] [facility] Comment on above: Performed By: #### C DP, BMP #### [facility] [address] [place] [address] Founder: Carlos Mckoy MD MCH (RBC) [Entitic mass] 28.6 pg Normal 25.2-33.[address] [facility] Comment on above: Performed By: #### C DP, BMP #### [facility] [address] [place] [address] Founder: Carlos Mckoy MD MCHC (RBC) [Mass/Vol] 32.8 g/dL Normal 28.4-34.8 [facility] Comment on above: Performed By: #### C DP, BMP #### [address] [place] [address] Founder: Carlos Mckoy MD MCV (RBC) [Entitic vol] 87.0 fL Normal 82.6-102.9 [facility] Comment on above: Performed By: #### C DP, BMP #### [address] [place] [address] Founder: Carlos Mckoy MD Monocytes (Bld) [#/Vol] 1.08 10*3/uL Normal 0.10-1.[address] [facility] Comment on above: Performed By: #### C DP, BMP #### [facility] [address] [place] [address] Founder: Carlos Mckoy MD Monocytes/100 WBC (Bld) 9 % Normal 3-[address] [facility] Comment on above: Performed By: #### C DP, BMP #### [facility] [address] [place] [address] Founder: Carlos Mckoy MD Neutrophil (Seg) 61 % Normal 36-65 [facility] Comment on above: Performed By: #### C DP, BMP #### [address] [place], [place] [id number] Founder: Carlos Mckoy MD NRBC Automated 0.0 per 100 WBC Normal 0.[address] [facility] Comment on above: Performed By: #### C DP, BMP #### [address] [place], [facility]83 Founder: Carlos Mckoy MD Platelet mean volume (Bld) [Entitic vol] 8.7 fL Normal 8.1-13.[address] [facility] Comment on above: Performed By: #### C DP, BMP #### [address] [place], [facility]83 Founder: Carlos Mckoy MD Platelets (Bld) [#/Vol] 255 10*3/uL Normal 138-[address] [facility] Comment on above: Performed By: #### C DP, BMP #### [address] [place], [place] [id number] Founder: Carlos Mckoy MD RBC (Bld) [#/Vol] 4.62 10*6/uL Normal 3.95-5.[address] [facility] Comment on above: Performed By: #### C DP, BMP #### [address] [place], [place] [id number] Founder: Carlos Mckoy MD WBC (Bld) [#/Vol] 12.4 10*3/uL High 3.5-11.[address] [facility] Comment on above: Performed By: #### C DP, BMP #### [address] [place] [address] Founder: Carlos Mckoy MD CT ABDOMEN PELVIS W IV CONTR Kaiden 06-10-2022 CT ABDOMEN PELVIS W IV CONTRAST EXAMINATION: CT OF THE ABDOMEN AND PELVIS WITH CONTRAST 06/10/2022 1:59 pm TECHNIQUE: CT of the abdomen and pelvis was performed with the administration of intravenous contrast. Multiplanar reformatted images are provided for review. Automated exposure control, iterative reconstruction, and/or weight based adjustment of the mA/kV was utilized to reduce the radiation dose to as low as reasonably achievable. COMPARISON: 01/12/2015 HISTORY: ORDERING SYSTEM PROVIDED HISTORY: left lower abd pain. TECHNOLOGIST PROVIDED HISTORY: left lower abd pain. Decision Support Exception - unselect if not a suspected or confirmed emergency medical condition->Emergenc y Medical Condition (MA) FINDINGS: Evaluation is limited by the patient's body habitus, which creates a great deal streak artifact, especially on the right. Lower Chest: Visualized lungs are clear. Base of the heart unremarkable. Organs: There is diffuse hepatic steatosis. Hepatomegaly noted. No focal hepatic abnormality identified. Portal vein is patent. Gallbladder unremarkable. Spleen unremarkable. Adrenals unremarkable. Pancreas unremarkable. No acute or suspicious renal abnormality identified. GI/Bowel: No large bowel abnormalities are identified. Appendix is normal. Distal esophagus and stomach unremarkable. Duodenal sweep and the remainder of the small bowel are unremarkable. Pelvis: Large adnexal cysts are seen bilaterally. On the left, largest measures 8.0 cm. On the right largest measures 6.9 cm. Uterus is unremarkable in appearance. No free pelvic fluid. Urinary bladder unremarkable. Peritoneum/Retroper itoneum: Abdominal aorta normal in caliber. No lymphadenopathy. Bones/Soft Tissues: No acute or suspicious bony abnormalities are identified. Evaluation the lumbar spine is limited with CT technique. There does appear to be degenerative disc disease which is greatest at L4-L5, where a moderate circumferential disc bulge/osteophyte complex is present, leading to at least moderate if not high-grade central canal stenosis. With that said, it appears very similar when compared to the previous exam from 2014. IMPRESSION: Large bilateral adnexal cysts, largest on the left measuring up to 8 cm. Given the patient's symptomatology, further evaluation with pelvic ultrasound is recommended to ensure that there is no underlying torsion. Degenerative disc disease, greatest L4-L5, where there is at least moderate if not high-grade central canal stenosis. It does appear similar when compared to the previous exam from December 2014. Hepatic steatosis with hepatomegaly. Interpreted by: Cornell Stearns MD Signed by: Cornell Stearns MD 06/10/22 Final result Normal [facility] CT ABDOMEN PELVIS W IV CONTR AST Additional Contrast? Noneon 06-10-2022 Large bilateral adnexal cysts, largest on the left measuring up to 8 cm. Given the patient's symptomatology, further evaluation with pelvic ultrasound is recommended to ensure that there is no underlying torsion. Degenerative disc disease, greatest L4-L5, where there is at least moderate if not high-grade central canal stenosis. It does appear similar when compared to the previous exam from December 2014. Hepatic steatosis with hepatomegaly. [facility] EXAMINATION: CT OF THE ABDOMEN AND PELVIS WITH CONTRAST 06/10/2022 1:59 pm TECHNIQUE: CT of the abdomen and pelvis was performed with the administration of intravenous contrast. Multiplanar reformatted images are provided for review. Automated exposure control, iterative reconstruction, and/or weight based adjustment of the mA/kV was utilized to reduce the radiation dose to as low as reasonably achievable. COMPARISON: 01/12/2015 HISTORY: ORDERING SYSTEM PROVIDED HISTORY: left lower abd pain. TECHNOLOGIST PROVIDED HISTORY: left lower abd pain. Decision Support Exception - unselect if not a suspected or confirmed emergency medical condition->Emergenc y Medical Condition (MA) FINDINGS: Evaluation is limited by the patient's body habitus, which creates a great deal streak artifact, especially on the right. Lower Chest: Visualized lungs are clear. Base of the heart unremarkable. Organs: There is diffuse hepatic steatosis. Hepatomegaly noted. No focal hepatic abnormality identified. Portal vein is patent. Gallbladder unremarkable. Spleen unremarkable. Adrenals unremarkable. Pancreas unremarkable. No acute or suspicious renal abnormality identified. GI/Bowel: No large bowel abnormalities are identified. Appendix is normal. Distal esophagus and stomach unremarkable. Duodenal sweep and the remainder of the small bowel are unremarkable. Pelvis: Large adnexal cysts are seen bilaterally. On the left, largest measures 8.0 cm. On the right largest measures 6.9 cm. Uterus is unremarkable in appearance. No free pelvic fluid. Urinary bladder unremarkable. Peritoneum/Retroper itoneum: Abdominal aorta normal in caliber. No lymphadenopathy. Bones/Soft Tissues: No acute or suspicious bony abnormalities are identified. Evaluation the lumbar spine is limited with CT technique. There does appear to be degenerative disc disease which is greatest at L4-L5, where a moderate circumferential disc bulge/osteophyte complex is present, leading to at least moderate if not high-grade central canal stenosis. With that said, it appears very similar when compared to the previous exam from 2014. [facility] RIS CONSOL[facility] Cornell Stearns MD - 06/10/2022 EXAMINATION: CT OF THE ABDOMEN AND PELVIS WITH CONTRAST 06/10/2022 1:59 pm TECHNIQUE: CT of the abdomen and pelvis was performed with the administration of intravenous contrast. Multiplanar reformatted images are provided for review. Automated exposure control, iterative reconstruction, and/or weight based adjustment of the mA/kV was utilized to reduce the radiation dose to as low as reasonably achievable. COMPARISON: 01/12/2015 HISTORY: ORDERING SYSTEM PROVIDED HISTORY: left lower abd pain. TECHNOLOGIST PROVIDED HISTORY: left lower abd pain. Decision Support Exception - unselect if not a suspected or confirmed emergency medical condition->Emergenc y Medical Condition (MA) FINDINGS: Evaluation is limited by the patient's body habitus, which creates a great deal streak artifact, especially on the right. Lower Chest: Visualized lungs are clear. Base of the heart unremarkable. Organs: There is diffuse hepatic steatosis. Hepatomegaly noted. No focal hepatic abnormality identified. Portal vein is patent. Gallbladder unremarkable. Spleen unremarkable. Adrenals unremarkable. Pancreas unremarkable. No acute or suspicious renal abnormality identified. GI/Bowel: No large bowel abnormalities are identified. Appendix is normal. Distal esophagus and stomach unremarkable. Duodenal sweep and the remainder of the small bowel are unremarkable. Pelvis: Large adnexal cysts are seen bilaterally. On the left, largest measures 8.0 cm. On the right largest measures 6.9 cm. Uterus is unremarkable in appearance. No free pelvic fluid. Urinary bladder unremarkable. Peritoneum/Retroper itoneum: Abdominal aorta normal in caliber. No lymphadenopathy. Bones/Soft Tissues: No acute or suspicious bony abnormalities are identified. Evaluation the lumbar spine is limited with CT technique. There does appear to be degenerative disc disease which is greatest at L4-L5, where a moderate circumferential disc bulge/osteophyte complex is present, leading to at least moderate if not high-grade central canal stenosis. With that said, it appears very similar when compared to the previous exam from 2014. IMPRESSION: Large bilateral adnexal cysts, largest on the left measuring up to 8 cm. Given the patient's symptomatology, further evaluation with pelvic ultrasound is recommended to ensure that there is no underlying torsion. Degenerative disc disease, greatest L4-L5, where there is at least moderate if not high-grade central canal stenosis. It does appear similar when compared to the previous exam from December 2014. Hepatic steatosis with hepatomegaly. [facility] O[facility] Work Phone: Radiology Study observation (narrative) TAWNY LOPEZ [facility] [employer] Work Phone: CT ABDOMEN PELVIS W IV CONTR AST Additional Contrast? NoneOrdered By: Cornell Stearns on 06-10-2022 [facility] Work Phone: HCG, ,Urineon 06-10 Beta HCG ( test) Ql (U) Negative Normal NEG [facility] Comment on above: Result Comment: Spec imens with hCG levels near the threshold of the test (25 mIU/mL) may give a negative or indeterminate result. In such cases, another test should be performed with a new specimen in 48-72 hours. If early is suspected clinically in this setting, correlation with quantitative serum b-hCG level is suggested. [facility] [email or web address] has confirmed the use of plasma for this test. This has not been cleared or approved by the U.S. Food and Drug Administration. The FDA has determined that such clearance is not necessary. Performed By: #### U MICAO, UAX, [facility] #### [facility] [address] [place] [address] [place] [address] Founder: Carlos Mckoy MD Laboratory - Chemistry and C hemistry - challengeon 06-10-2022 GFR/1.73 sq M.predicted MDRD (S/P/Bld) [Vol rate/Area] [facility] Comment on above: Average GFR for 30-3 9 years old: 107 mL/min/1.73sq m Chronic Kidney Disease: <60 mL/min/1.73sq m Kidney failure: <15 mL/min/1.73sq m eGFR calculated using average adult body mass. Additional eGFR calculator available at: http://[email or web address]_[email or web address] Stage 1: Some kidney damage normal GFR Stage 2: Mild kidney damage GFR 60-89 Stage 3: Moderate kidney damage GFR 30-59 Stage 4: Severe kidney damage GFR 15-29 Stage 5: Severe kidney damage GFR <15 ESRD - chronic treatment by dialysis or transplant Microscopic Urinalysison Bacteria, UA 1+ Abnormal None [facility] Epithelial Cells UA 0 TO 2 [facility] Interpretation and review of laboratory results Abnormal [facility] Mucus, UA 3+ Abnormal None [facility] RBC, UA 0 TO 2 [facility] WBC, UA 0 TO 2 [facility] , Urineon 2 Beta HCG ( test) Ql (U) Negative NEGATIVE [facility] Comment on above: Specimens with hCG l evels near the threshold of the test (25 mIU/mL) may give a negative or indeterminate result. In such cases, another test should be performed with a new specimen in 48-72 hours. If early is suspected clinically in this setting, correlation with quantitative serum b-hCG level is suggested. [facility] has confirmed the use of plasma for this test. This has not been cleared or approved by the U.S. Food and Drug Administration. The FDA has determined that such clearance is not necessary. [facility] UA w/Reflex Cultureon 2021 Bilirubin, SemiQt,Ur Negative Normal NEG [facility] Comment on above: Performed By: #### U BALJINDER BERUMENX, [facility] #### [facility] [address] [place] [address] Founder: Carlos Mckoy MD Blood, Urine 1+ Abnormal NEG [facility] Comment on above: Performed By: #### U ANGELOBALJINDERX, [facility] #### [facility] [address] [place] [address] Founder: Carlos Mckoy MD Clarity (U) Clear Normal CLEAR [facility] Comment on above: Performed By: #### U ANGELOBALJINDERX, [facility] #### [facility] [address] [place] [address] Founder: Carlos Mckoy MD Color (U) Yellow Normal YEL [facility] Comment on above: Performed By: #### U MICAO, UAX, UHCG #### [facility] [address] [place] [address] Dr[address] [place], [place] [id number] Founder: Carlos Mckoy MD Glucose Ql (U) Negative Normal NEG [facility] in Hospital Comment on above: Performed By: #### U MICAO, UAX, UHCG #### [facility] [address] [place] [address] Dr[address] [place], [place] [id number] Founder: Carlos Mckoy MD Ketones Ql (U) Negative Normal NEG [facility] Comment on above: Performed By: #### U MICAO, UAX, UHCG #### [facility] [address] [place] [address] Dr[address] [place], [place] [id number] Founder: Carlos Mckoy MD Leukocyte esterase Test strip Ql (U) Negative Normal NEG [facility] Comment on above: Performed By: #### U MICAO, UAX, UHCG #### [address] [place], [place] [id number] Founder: Carlos Mckoy MD Nitrite,Ur Negative Normal [facility] Comment on above: Performed By: #### U MICAO, UAX, UHCG #### [address] [place], [place] [id number] Founder: Carlos Mckoy MD PH,Ur 6.5 Normal 5.0-9.[address] [facility] Comment on above: Performed By: #### U MICAO, UAX, UHCG #### [facility] [address] [place] [address] Dr[address] [place], [place] [id number] Founder: Carlos Mckoy MD Protein Ql (U) Negative Normal NEG [facility] in [facility] Comment on above: Performed By: #### U MICAO, UAX, UHCG #### [facility] [address] [place] [address] Dr[address] [place], [place] [id number] Founder: Carlos Mckoy MD Spec. [place],Ur 1.020 Normal 1.010-1.020 [facility] Comment on above: Performed By: #### U ANGELO, UAX, UHCG #### [facility] [address] [place], [place] [id number] Founder: Carlos Mckoy MD Urobilinogen,Ur Normal Normal NORM [facility] Comment on above: Performed By: #### U ANGELO, UAX, CG #### [facility] [address] [place], [place] [id number] Founder: Carlos Mckoy MD US NON OB TRANSVAGINALon US NON OB TRANSVAGINAL EXAMINATION: PELVIC ULTRASOUND 06/10/2022 TECHNIQUE: Transabdominal and transvaginal pelvic duplex ultrasound using B-mode/baker scaled imaging, Doppler spectral analysis and color flow Doppler was obtained. COMPARISON: CT 06/10/2022 HISTORY: ORDERING SYSTEM PROVIDED HISTORY: Pain, Rule out Torsion TECHNOLOGIST PROVIDED HISTORY: Pain, Rule out Torsion FINDINGS: Measurements: Uterus: 8.3 x 5.2 x 3.8 cm Endometrial stripe: 13 mm Right Ovary:2.6 x 2.5 x 1.5 cm Left Ovary: 4.7 x 3.5 x 2.3 cm Ultrasound Findings: Uterus: Uterus demonstrates normal myometrial echotexture. Nabothian cysts. Endometrial stripe: Endometrial stripe is within normal limits. Right Ovary: Right ovary is within normal limits. There is normal arterial and venous Doppler flow. Simple appearing cyst measuring up to 6.6 cm appears paraovarian. Left Ovary: Left ovary is within normal limits. There is normal arterial and venous Doppler flow. Simple appearing cyst measuring up to 8 cm, which may be paraovarian. Free Fluid: No evidence of free fluid. IMPRESSION: 1. No evidence for torsion. 2. Simple appearing pelvic cysts are favored to be paraovarian, for which follow-up ultrasound in 3-6 months is recommended. RECOMMENDATIONS: 8 cm left paraovarian probable benign cyst. Recommend follow-up pelvic US in 3-6 months. Reference: Radiology 2019 Nov;293(2):[id number] Interpreted by: Denis Howe MD Signed by: Denis Howe MD 06/10/22 Final result Normal [facility] 1. No evidence for torsion. 2. Simple appearing pelvic cysts are favored to be paraovarian, for which follow-up ultrasound in 3-6 months is recommended. RECOMMENDATIONS: 8 cm left paraovarian probable benign cyst. Recommend follow-up pelvic US in 3-6 months. Reference: Radiology 2019 Nov;293(2):[id number] [facility] EXAMINATION: PELVIC ULTRASOUND 06/10/2022 TECHNIQUE: Transabdominal and transvaginal pelvic duplex ultrasound using B-mode/baker scaled imaging, Doppler spectral analysis and color flow Doppler was obtained. COMPARISON: CT 06/10/2022 HISTORY: ORDERING SYSTEM PROVIDED HISTORY: Pain, Rule out Torsion TECHNOLOGIST PROVIDED HISTORY: Pain, Rule out Torsion FINDINGS: Measurements: Uterus: 8.3 x 5.2 x 3.8 cm Endometrial stripe: 13 mm Right Ovary:2.6 x 2.5 x 1.5 cm Left Ovary: 4.7 x 3.5 x 2.3 cm Ultrasound Findings: Uterus: Uterus demonstrates normal myometrial echotexture. Nabothian cysts. Endometrial stripe: Endometrial stripe is within normal limits. Right Ovary: Right ovary is within normal limits. There is normal arterial and venous Doppler flow. Simple appearing cyst measuring up to 6.6 cm appears paraovarian. Left Ovary: Left ovary is within normal limits. There is normal arterial and venous Doppler flow. Simple appearing cyst measuring up to 8 cm, which may be paraovarian. Free Fluid: No evidence of free fluid. [facility] Denis Howe MD - 06/10/2022 EXAMINATION: PELVIC ULTRASOUND 06/10/2022 TECHNIQUE: Transabdominal and transvaginal pelvic duplex ultrasound using B-mode/baker scaled imaging, Doppler spectral analysis and color flow Doppler was obtained. COMPARISON: CT 06/10/2022 HISTORY: ORDERING SYSTEM PROVIDED HISTORY: Pain, Rule out Torsion TECHNOLOGIST PROVIDED HISTORY: Pain, Rule out Torsion FINDINGS: Measurements: Uterus: 8.3 x 5.2 x 3.8 cm Endometrial stripe: 13 mm Right Ovary:2.6 x 2.5 x 1.5 cm Left Ovary: 4.7 x 3.5 x 2.3 cm Ultrasound Findings: Uterus: Uterus demonstrates normal myometrial echotexture. Nabothian cysts. Endometrial stripe: Endometrial stripe is within normal limits. Right Ovary: Right ovary is within normal limits. There is normal arterial and venous Doppler flow. Simple appearing cyst measuring up to 6.6 cm appears paraovarian. Left Ovary: Left ovary is within normal limits. There is normal arterial and venous Doppler flow. Simple appearing cyst measuring up to 8 cm, which may be paraovarian. Free Fluid: No evidence of free fluid. IMPRESSION: 1. No evidence for torsion. 2. Simple appearing pelvic cysts are favored to be paraovarian, for which follow-up ultrasound in 3-6 months is recommended. RECOMMENDATIONS: 8 cm left paraovarian probable benign cyst. Recommend follow-up pelvic US in 3-6 months. 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 [employer] [facility] [employer] Work Phone: US NON OB TRANSVAGINALOrdere d By: Denis Howe on 06-10-2022 [facility] Work Phone: Urinalysis with Reflex to Cu ltureon 06-10-2022 Bilirubin Urine Negative NEGATIVE [facility] Color, UA Yellow Yellow [facility] [employer] Glucose, Ur Negative NEGATIVE [facility] [employer] Interpretation and review of laboratory results Abnormal [facility] Ketones Ql (U) Negative NEGATIVE [facility] Leukocyte esterase Test strip Ql (U) Negative NEGATIVE [facility] Nitrite, Urine Negative NEGATIVE [facility] pH, UA 6.5 5 - 9 [facility] Protein, UA Negative NEGATIVE [facility] Specific [place], UA 1.020 1.01 - 1.02 [facility] Turbidity UA Clear Clear [facility] Urine Hgb 1+ Abnormal NEGATIVE [facility] Urobilinogen, Urine Normal Normal [facility] Urinalysis,Microon 2 Bacteria 1+ Abnormal NONE [facility] Comment on above: Performed By: #### U MICAO, UAX, UHCG #### [facility] [address] [place] [address] Founder: Carlos Mckoy MD Epithelial cells LM Ql (Urine sed) 0 TO 2 Normal 0-[address] [facility] Comment on above: Performed By: #### U MICAO, UAX, UHCG #### [facility] [address] [place], [place] [id number] Founder: Carlos Mckoy MD Mucus Strands 3+ Abnormal NONE [facility] Comment on above: Performed By: #### U MICAO, UAX, UHCG #### [facility] [address] [place] [address] Founder: Carlos Mckoy MD Urine RBC's 0 TO 2 Normal 0-[address] [facility] Comment on above: Performed By: #### U MICAO, UAX, UHCG #### [facility] [address] [place], [facility] Founder: Carlos Mckoy MD Urine WBC's 0 TO 2 Normal 0-[address] [facility] Comment on above: Performed By: #### U MICAO, UAX, UHCG #### [facility] [address] [place] [address] Founder: Carlos Mckoy MD APTTon 06-29-2020 aPTT Coag (Bld) [Time] 26.5 s Normal 25.0-35.0 Th e [facility] Comment on above: Result Comment: ALL RESULTS MUST BE INTERPRETED WITH RESPECT TO BLOOD DRAWING ARTIFACT OR DILUTION ERROR OF ANTICOAGULANT AT THE TIME OF SAMPLING. THE APTT SHOULD NOT BE USED TO MONITOR UNFRACTIONATED HEPARIN THERAPY, THIS LABORATORY NO LONGER HAS AN ESTABLISHED THERAPEUTIC RANGE BASED ON THE APTT. IT IS RECOMMENDED THAT THE UFH - HEPARIN ASSAY (ANTI-XA ACTIVITY) BE USED FOR THIS PURPOSE. Performed By: #### 5 7307, 49375, 72176 #### [facility] [address] [place] [address], [facility] BASIC METABOLIC PANELon Calcium [Mass/Vol] 9.3 mg/dL Normal 8.6-10.3 [facility] Comment on above: Performed By: #### 1 5, 87244, 09133 #### [facility] [address] [place] [address], [place] Chloride [Moles/Vol] 104 mmol/L Normal 98-107 [facility] Comment on above: Performed By: #### 1 5, 97235, 48982 #### [facility] [address] [place] [address], [place] CO2 [Moles/Vol] 25 mmol/L Normal 21-31 [facility] Comment on above: Performed By: #### 1 5, 94154, 42297 #### [facility] [address] [place] [address], [place] Creatinine [Mass/Vol] 0.71 mg/dL Normal 0.60-1.20 [facility] Comment on above: Performed By: #### 1 54, 47386, 42197 #### [facility] [address] [place] [address], [place] GFR/1.73 sq M predicted among blacks MDRD (S/P/Bld) [Vol rate/Area] mL/min/{1.73_m2} Normal >60 [facility] Comment on above: Performed By: #### 1 54, 38931, 08360 #### [facility] [address] [place] [address], [place] GFR/1.73 sq M predicted among non-blacks MDRD (S/P/Bld) [Vol rate/Area] mL/min/{1.73_m2} Normal >60 [facility] Comment on above: Performed By: #### 1 54, 41024, 72242 #### [facility] [address] [place] [address], [place] Glucose [Mass/Vol] 99 mg/dL Normal 70-100 [facility] Comment on above: Performed By: #### 1 5, 96924, 31924 #### [facility] [address] [place] [address], [facility] Potassium [Moles/Vol] 3.3 mmol/L Low 3.5-5.1 [facility] Comment on above: Performed By: #### 1 54, 09233, 39728 #### [facility] [address] [place] [address], [facility] Sodium [Moles/Vol] 139 mmol/L Normal 136-145 [facility] Comment on above: Performed By: #### 1 54, 23980, 14070 #### [facility] [address] [facility] [address] Urea nitrogen [Mass/Vol] 15 mg/dL Normal 7-25 [facility] Comment on above: Performed By: #### 1 54, 31416, 89388 #### [facility] [address] [facility]. [address] CBC W/DIFFon 06-29-2020 ABS BASOPHILS 0.1 10*3/uL Normal 0.0-0.2 [facility] Comment on above: Performed By: #### 5 3 #### [facility] [address] [facility] ABS IMM GRANS 0.1 10*3/uL Normal 0.0-0.2 [facility] Comment on above: Performed By: #### 5 0103 #### [facility] [address] [facility]. [address] ABS NEUTROPHILS 5.3 10*3/uL Normal 1.6-7.6 [facility] Comment on above: Performed By: #### 5 3 #### [facility] [address] [place] [address], [facility] Basophils/100 WBC (Bld) 0.7 % Normal 0.0-1.0 T guillermo [facility] Comment on above: Performed By: #### 5 0103 #### [facility] [address] [place] [address], [facility] Eosinophils (Bld) [#/Vol] 0.2 10*3/uL Normal 0.0-0.5 [facility] Comment on above: Performed By: #### 5 0103 #### [facility] [address] [facility] [place] [address], [facility] Eosinophils/100 WBC (Bld) 1.7 % Normal 0.0-6.0 [facility] Comment on above: Performed By: #### 5 0103 #### [facility] [address] [facility] [address] Erythrocyte distribution width (RBC) [Ratio] 14.1 % Normal 11.5-15.0 [facility] Comment on above: Performed By: #### 5 0103 #### [facility] [address] Hematocrit (Bld) [Volume fraction] 41.8 % Normal 36.0-45.0 [facility] Comment on above: Performed By: #### 5 0103 #### [facility] [address] [place] [address], [facility] Hemoglobin (Bld) [Mass/Vol] 14.0 g/dL Normal 12.0-15.0 [facility] Comment on above: Performed By: #### 5 0103 #### [facility] [address] [place] [address], [facility] IMMATURE GRANS 1.3 % High 0.0-1.0 [facility] Comment on above: Performed By: #### 5 0103 #### [facility] [address] [place] [address], [facility] Lymphocytes (Bld) [#/Vol] 3.7 10*3/uL Normal 1.2-4.0 [facility] Comment on above: Performed By: #### 5 0103 #### [facility] [address] [place] [address], [facility] Lymphocytes/100 WBC (Bld) 34.6 % Normal 20.0-45.0 [facility] Comment on above: Performed By: #### 5 3 #### [facility] [address] [place] [address], [facility] MCH (RBC) [Entitic mass] 28.3 pg Normal 27.0-33.0 [facility] Comment on above: Performed By: #### 5 3 #### [facility] [address] [place] [address], [facility] MCHC (RBC) [Mass/Vol] 33.5 g/dL Normal 32.0-35.0 [facility] Comment on above: Performed By: #### 5 3 #### [facility] [address] [place] [address], [facility] MCV (RBC) [Entitic vol] 84.6 fL Normal 82.0-98.0 T [facility] Comment on above: Performed By: #### 5 3 #### [facility] [address] [place] [address], [facility] Monocytes (Bld) [#/Vol] 1.3 10*3/uL High 0.1-1.0 [facility] Comment on above: Performed By: #### 5 3 #### [facility] [address] [place] [address], [facility] MONOS 12.1 % High 5.0-12.0 [facility] Comment on above: Performed By: #### 5 3 #### [facility] [address] [place] [address], [facility] Neutrophils/100 WBC (Bld) 49.6 % Normal 40.0-72.0 [facility] Comment on above: Performed By: #### 5 0103 #### [facility] [address] [facility]. [address] Nucleated RBC/100 WBC (Bld) [Ratio] 0 % Normal 0-0 [facility] Comment on above: Performed By: #### 5 0103 #### [facility] [address] [place] [address], [facility] PLAT CNT 260 10*3/uL Normal 150-400 [facility] Comment on above: Performed By: #### 5 0103 #### [facility] [address] RBC (Bld) [#/Vol] 4.94 10*6/uL Normal 3.80-5.00 [facility] Comment on above: Performed By: #### 5 0103 #### [facility] [address] WBC (Bld) [#/Vol] 10.70 10*3/uL High 4.00-10.60 [facility] Comment on above: Performed By: #### 5 0103 #### [facility] [address] D DIMER TESTon 06-29-2020 D-DIMER TEST <0.27 Normal 0.01-0.49 [facility] Comment on above: Result Comment: D-Di flip values of less than 0.50 ug/ml (FEU) are considered to be a negative predictor of thrombosis. However, the D-Dimer result should be used in conjunction with pretest probability and should not be used alone to diagnose a thrombotic event. Performed By: #### 1 0055, 20886, 07517 #### [facility] [address] ED TOX PANEL URINEon 020 50 THC Negative Normal NEGATIVE [facility] Comment on above: Performed By: #### 3 1763 #### [facility] [address] [place] [address], [facility] BARBITURATES Negative Normal NEGATIVE [facility] Comment on above: Performed By: #### 3 1763 #### [facility] [address] [place] [address], [facility] Benzodiazepines Ql (U) Negative Normal NEGATIVE [facility] e [facility] Comment on above: Performed By: #### 3 1763 #### [facility] [address] [place] [address], [facility] Cocaine Ql (U) Negative Normal NEGATIVE [facility] Comment on above: Performed By: #### 3 1763 #### [facility] [address] [place] [address], [facility] Methadone Ql (U) Negative Normal NEGATIVE [facility] Comment on above: Performed By: #### 3 1763 #### [facility] [address] [place] [address], [facility] MONO AMPHET Negative Normal NEGATIVE The [facility] Comment on above: Performed By: #### 3 1763 #### [facility] [address] [place] [address], [facility] Opiates Ql (U) Negative Normal NEGATIVE [facility] Comment on above: Performed By: #### 3 1763 #### [facility] [address] [place] [address], [facility] Phencyclidine Ql (U) Negative Normal NEGATIVE [facility] Comment on above: Performed By: #### 3 1763 #### [facility] [address] [place] [address], [facility] PROPOXYPHENE Negative Normal NEGATIVE [facility] Comment on above: Performed By: #### 3 1763 #### [facility] [address] [place] [address], [facility] TRICYCLICS Negative Normal NEGATIVE [facility] Comment on above: Performed By: #### 3 1763 #### [facility] [address] [place] [address], [place] LIVER BATTERYon 06-29-2020 Albumin [Mass/Vol] 3.9 g/dL Normal 3.5-5.7 [facility] Comment on above: Performed By: #### 1 0055, 15307, 82464 #### [facility] [address] [place] [address], [facility] ALKALINE PHOSPH 58 IU/L Normal 34-104 [facility] Comment on above: Performed By: #### 1 0055, [id number], [id number] #### [facility] [address] [place] [address], [facility] ALT [Catalytic activity/Vol] 22 U/L Normal 7-52 [facility] Comment on above: Performed By: #### 1 0055, 11543, 56562 #### [facility] [address] [place] [address], [facility] AST [Catalytic activity/Vol] 25 U/L Normal 13-39 [facility] Comment on above: Performed By: #### 1 0055, 14594, 18822 #### [facility] [address] [place] [address], [place] Bilirubin [Mass/Vol] 0.2 mg/dL Low 0.3-1.0 [facility] Comment on above: Performed By: #### 1 0055, 50338, 12476 #### [facility] [address] [place] [address], [place] Bilirubin.direct [Mass/Vol] 0.0 mg/dL Normal 0.0-0.2 [facility] Comment on above: Performed By: #### 1 0055, 02478, 69776 #### [facility] [address] [place] [address], [facility] Protein [Mass/Vol] 7.1 g/dL Normal 6.0-8.3 [facility] Comment on above: Performed By: #### 1 0055, 66277, 94048 #### [facility] [address] [place] [address], [facility] POC URINE PREGNANCYon 2019 Beta HCG ( test) Ql (U) Negative Normal NEGATIVE [facility] Comment on above: Result Comment: Perf ormed in Emergency Department. Performed By: #### 1 0055, 30351, 54650 #### [facility] [address] [place] [address], [facility] PORTABLE CHEST 1 VIEWon PORTABLE CHEST 1 VIEW [facility] Department of Radiology [address] [place] [address] [id number] Patient Name: LUPE ABRAMS : 1985 Sex: F Age: Race: White Pt. Location: [facility] Patient Status: E Ordered Date: 06/29/2020 7:25:00 PM Completed Date: 06/29/2020 07:59 PM Requesting Provider: MATTHEW [place] Attending Provider: ARTEMIO MCGUIRE Report Copy To: Signs & Symptoms: Chest Pain History: See Comments Comments: R/O Infiltrates Exam: PORTABLE CHEST 1 VIEW PORTABLE CHEST 1 VIEW 06/29/2020 7:59 PM CLINICAL INDICATIONS: Chest Pain TECHNOLOGIST COMMENTS: Patient c/o chest pain and fever for one day. QUESTION FOR THE RADIOLOGIST: R/O Infiltrates PROTOCOL: AP(PA) view was obtained. COMPARISON: None IMPRESSION: Lungs are fully expanded and clear. No consolidative airspace disease or infiltrate. No congestive features. Mediastinum is within normal limits. No pneumothorax. No acute process Electronically signed: Jazmin Ngo. Transcribed by: [email or web address], User Resident: Electronically Signed by: JAZMIN NGO @ 06/29/2020 08:10 PM Normal [facility] Comment on above: Order Comment: R/O I nfiltrates PROTHROMBIN TIMEon 0 INR Coag (PPP) [Relative time] 0.96 {INR} Normal 0.91-1.16 [facility] Comment on above: Result Comment: ACCC P RECOMMENDED INR FOR WARFARIN THERAPY ------- CONDITION INR PROPHYLAXIS OF VENOUS THROMBOSIS 2-3 (HIGH-RISK SURGERY) TREATMENT OF VENOUS THROMBOSIS 2-3 TREATMENT OF PULMONARY EMBOLISM 2-3 PREVENTION OF SYSTEMIC EMBOLISM: 2-3 ACUTE MYOCARDIAL INFARCTION TISSUE HEART VALVES VALVULAR HEART DISEASE ATRIAL FIBRILLATION RECURRENT SYSTEMIC EMBOLISM MECHANICAL HEART VALVE 2.5-3.5 FROM: ORAL ANTICOAGULANTS. MECHANISM OF ACTION, CLINICAL EFFECTIVENESS, AND OPTIMAL THERAPEUTIC RANGE. CHEST 1995;108:231S-246S. Performed By: #### 5 7307, 43681, 76368 #### [facility] [address] PT Coag (PPP) [Time] 12.8 s Normal 12.3-14.8 [facility] Comment on above: Result Comment: ALL RESULTS MUST BE INTERPRETED WITH RESPECT TO BLOOD DRAWING ARTIFACT OR DILUTION ERROR OF ANTICOAGULANT AT THE TIME OF SAMPLING. Performed By: #### 5 7307, 58673, 84694 #### [facility] [address] [place] [address], [facility] TROPONIN-Ion 06-29-2020 Troponin I.cardiac [Mass/Vol] 0.01 ng/mL Normal 0.00-0.04 [facility] Comment on above: Result Comment: REFE RENCE RANGES: 0.00 - 0.04 ng/ml NORMAL 0.05 - 0.50 ng/ml INDETERMINATE > 0.50 ng/ml CONSISTENT WITH AN M.I. Performed By: #### 1 0055, 05483, 32618 #### [facility] [address] URINALYSIS REFLEXon 06-29-20 20 Appearance (U) CLOUDY Abnormal CLEAR [facility] Comment on above: Order Comment: Crite vania for reflexing a culture was not met. Please call the lab at [phone] within 24 hours of collection time if culture is needed Performed By: #### 3 0997 #### [facility] [address] [place] [address], [facility] Bilirubin [Mass/Vol] Negative Normal NEGATIVE [facility] Comment on above: Order Comment: Crite vania for reflexing a culture was not met. Please call the lab at 7668 within 24 hours of collection time if culture is needed Performed By: #### 3 0965 #### [facility] [address] [place] [address], [facility] BLOOD SMALL Abnormal NEGATIVE [facility] Comment on above: Order Comment: Crite vania for reflexing a culture was not met. Please call the lab at 7668 within 24 hours of collection time if culture is needed Performed By: #### 3 0965 #### [facility] [address] Color (U) YELLOW Normal YELLOW [facility] Comment on above: Order Comment: Crite vania for reflexing a culture was not met. Please call the lab at 7668 within 24 hours of collection time if culture is needed Performed By: #### 3 0965 #### [facility] [address] [place] [address], [facility] EPIS MANY Abnormal FEW,OCC,NONE SEEN [facility] Comment on above: Order Comment: Crite vania for reflexing a culture was not met. Please call the lab at 7668 within 24 hours of collection time if culture is needed Performed By: #### 3 0965 #### [facility] [address] [place] [address], [facility] Glucose [Mass/Vol] Negative Normal NEGATIVE [facility] Comment on above: Order Comment: Crite vania for reflexing a culture was not met. Please call the lab at 7668 within 24 hours of collection time if culture is needed Performed By: #### 3 0965 #### [facility] [address] [place] [address], [facility] HYALINE CASTS 3 /LPF Abnormal NONE SEEN [facility] Comment on above: Order Comment: Crite vania for reflexing a culture was not met. Please call the lab at 7668 within 24 hours of collection time if culture is needed Performed By: #### 3 0965 #### [facility] [address] [place] [address], [facility] KETONE Negative Normal NEGATIVE [facility] Comment on above: Order Comment: Crite vania for reflexing a culture was not met. Please call the lab at 7668 within 24 hours of collection time if culture is needed Performed By: #### 3 0965 #### [facility] [address] [place] [address], [place] LEUK LIDYA TRACE Abnormal NEGATIVE [facility] Comment on above: Order Comment: Crite vania for reflexing a culture was not met. Please call the lab at 7668 within 24 hours of collection time if culture is needed Performed By: #### 3 0965 #### [facility] [address] [place] [address], [facility] MUCUS THREADS MOD Abnormal NONE SEEN [facility] Comment on above: Order Comment: Crite vania for reflexing a culture was not met. Please call the lab at 7668 within 24 hours of collection time if culture is needed Performed By: #### 3 0965 #### [facility] [address] [place] [address], [facility] Nitrite Ql (U) Negative Normal NEGATIVE [facility] Comment on above: Order Comment: Crite vanai for reflexing a culture was not met. Please call the lab at 7668 within 24 hours of collection time if culture is needed Performed By: #### 3 0965 #### [facility] [address] [place] [address], [facility] pH (Bld) 6.0 Normal 5.0-8.0 [facility] Comment on above: Order Comment: Crite vania for reflexing a culture was not met. Please call the lab at 7668 within 24 hours of collection time if culture is needed Performed By: #### 3 0965 #### [facility] [address] [place] [address], [facility] Protein (U) [Mass/Vol] 30 mg/dL Abnormal NEGATIVE e [facility] Comment on above: Order Comment: Crite vania for reflexing a culture was not met. Please call the lab at 7668 within 24 hours of collection time if culture is needed Performed By: #### 3 0965 #### [facility] [address] [place] [address], [facility] RBC (U) [#/Vol] 3-5 Abnormal NONE SEEN [facility] Comment on above: Order Comment: Crite vania for reflexing a culture was not met. Please call the lab at 7668 within 24 hours of collection time if culture is needed Performed By: #### 3 0965 #### [facility] [address] SPEC GRAV 1.023 High 1.015-1.020 [facility] Comment on above: Order Comment: Crite vania for reflexing a culture was not met. Please call the lab at 7668 within 24 hours of collection time if culture is needed Performed By: #### 3 0965 #### [facility] [address] [place] [address], [facility] WBC UA 11-20 Abnormal NONE SEEN [facility] Comment on above: Order Comment: Crite vania for reflexing a culture was not met. Please call the lab at 7668 within 24 hours of collection time if culture is needed Performed By: #### 3 0965 #### [facility] [address] [facility] MUMPS IGG BLDon 05-07-2020 MUMPS IGG 1.39 Normal [facility] Comment on above: Result Comment: NORM AL RANGES: < OR = 0.9O NEGATIVE ; NO DETECTABLE IgG ANTIBODY TO MUMPS 0.91 - 1.09 EQUIVOCAL; REPEAT TESTING SUGGESTED > OR = 1.10 POSITIVE ; INDICATES PRESENCE OF DETECTABLE IgG ANTIBODY TO MUMPS Performed By: #### 1 0055, 00113, 93572 #### [facility] [address] RUBELLAon 05-07-2020 RUBELLA 2.16 Normal [facility] Comment on above: Result Comment: NORM AL RANGES: < OR = 0.9O NEGATIVE ; NO DETECTABLE IgG ANTIBODY TO RUBELLA 0.91 - 1.09 EQUIVOCAL; REPEAT TESTING SUGGESTED > OR = 1.10 POSITIVE ; INDICATES PRESENCE OF DETECTABLE IgG ANTIBODY TO RUBELLA VIRUS Performed By: #### 1 0055, 66213, 08707 #### [facility] [address] [facility] RUBEOLA MEASLES IGGon 2019 RUBEO IGG 1.82 Normal [facility] Comment on above: Result Comment: NORM AL RANGES: < OR = 0.9O NEGATIVE ; NO DETECTABLE IgG ANTIBODY TO RUBEOLA 0.91 - 1.09 EQUIVOCAL; REPEAT TESTING SUGGESTED > OR = 1.10 POSITIVE ; INDICATES PRESENCE OF DETECTABLE IgG ANTIBODY TO RUBEOLA Performed By: #### 1 0055, 07794, 36919 #### [facility] [address] TB QUANTIFERON PLUSon 2019 MITOGEN MINUS NIL >10.00 Normal [facility] Comment on above: Performed By: #### 3 1592 #### [facility] [address] NIL 0.02 IU/mL Normal [facility] Comment on above: Performed By: #### 3 1592 #### [facility] [address] TB QUANTIFERON Negative Normal NEGATIVE [facility] Comment on above: Result Comment: Laith tiferon TB Gold Interpretation (IU/mL): NEGATIVE: M. tuberculosis infection not likely. Nil: <=8.0 TB1 Antigen minus Nil (YW7JM-EIW): <0.35 OR >=0.35; and <25% of Nil value. TB2 Antigen minus Nil (SK7HX-SAL): <0.35 OR >=0.35; and <25% of Nil value. Mitogen minus Nil (DALIA-NIL): >=0.50 NOTE: Diagnosing or excluding tuberculosis disease, and assessing the probability of LTBI, requires a combination of epidemiological, historical, medical, and diagnostic findings that should be taken into account when interpreting QuantiFERON (TM)-TB Gold results. See general guidance on the diagnosis and treatment of TB disease and LTBI (https://www.cdc.gov/tb/publications/guidlines/default.htm Performed By: #### 3 1592 #### [facility] [address] [place] [address], [facility] TB1 AG 0.02 IU/mL Normal [facility] Comment on above: Performed By: #### 3 1592 #### [facility] [address] [place] [address], [facility] TB1 AG MINUS NIL 0.00 IU/mL Normal [facility] Comment on above: Performed By: #### 3 1592 #### [facility] [address] [place] [address], [facility] TB2 AG 0.02 IU/mL Normal [facility] Comment on above: Performed By: #### 3 1592 #### [facility] [address] [place] [address], [facility] TB2 AG MINUS NIL 0.00 IU/mL Normal [facility] Comment on above: Performed By: #### 3 1592 #### [facility] [address] [place] [address], [facility] Measles IgG-[facility] 8 Measles (Rubeola) IgG Ab-[place] Negative [facility] Comment on above: Result Comment: ---- REFERENCE VALUE Vaccinated: Positive (>=1.1 AI)Unvaccinated: Negative (<=0.8 AI) Performed By: #### C [id number] ####[facility] [place] [address] Measles IgG Ab Index-[place] 0.8 [facility] Comment on above: Result Comment: Test Performed by:[facility] [place] [address] Performed By: #### C [id number] ####[facility] [id number] [place] [address] VZ IgG-[facility] 07-16-2018 Varicella IgG Antibody Index-[place] 0.9 [facility] Comment on above: Result Comment: Test Performed by:[facility] [email or web address] [address] Performed By: #### V ZPG ####[facility] [id number] [place] [address] Varicella-Zoster IgG Antibody-[place] Equivocal Normal [facility] Comment on above: Result Comment: Yeyo mmend follow-up testing in 10-14 days if clinicallyindicated. REFERENCE VALUE Vaccinated: Positive (>=1.1 AI)Unvaccinated: Negative (<=0.8 AI) Performed By: #### V ZPG ####[address] [address] Rubella IgGon 07-14-2018 Rubella IgG Ab Interp Reactive Normal [facility] Comment on above: Result Comment: The presence of detectable IgG-class antibodies indicates immunity to the rubella virus through prior immunization or exposure. Individuals testing reactive (positive) are considered immune to rubella infection.This result was obtained with the Access Rubella IgG EIA. Despite calibration by means of a reference preparation, values obtained with different information clerk brokerage's assay methods may not be used interchangeably. The magnitude of the reported IgG level CANNOT be correlated to an endpoint titer. Performed By: #### R UB ####[address] [address] Vital Signs Date Time Vital Sign Value Performing Clinician Shay rodríguez 10-09-2023 14:30-0500 Body height 180.3 cm Smith Bao DO Work Phone: [email or web address] 10-09-2023 14:30-0500 Body mass index (BMI) [Ratio] 50.45 kg/m2 Smith Bao DO [facility] 10-09-2023 14:30-0500 Body weight 163.97 kg Smith Bao DO Work Phone: [employer] 10-09-2023 14:30-0500 Diastolic blood pressure 90 mm[Hg] Smith Bao DO Work Phone: [facility] 10-09-2023 14:30-0500 Heart rate 103 /min Smith Bao DO Work Phone: [employer] 10-09-2023 14:30-0500 SaO2% (BldA) [Mass fraction] 98 % Smith Bao DO Work Phone: [facility] 10-09-2023 14:30-0500 Systolic blood pressure 142 mm[Hg] Smith Bao DO Work Phone: [facility] 09-20-2022 02:30-0500 Diastolic blood pressure 74 mm[Hg] Johana Sagastume MD Work Phone: [facility] 09-20-2022 02:30-0500 Heart rate 108 /min Johana Sagastume MD Work Phone: [facility] 09-20-2022 02:30-0500 Respiratory rate 24 /min Johana Sagastume MD Work Phone: [facility] 09-20-2022 02:30-0500 Systolic blood pressure 122 mm[Hg] Johana Sagastume MD Work Phone: [facility] 09-20-2022 01:09-0500 Body height 180.3 cm Johana Sagastume MD Work Phone: [facility] 09-20-2022 01:09-0500 Body mass index (BMI) [Ratio] 50.91 kg/m2 Johana Sagastume MD Work Phone: [facility] 09-20-2022 01:09-0500 Body temperature 98.8 [degF] Johana Sagastume MD Work Phone: [facility] 09-20-2022 01:09-0500 Body weight 165.56 kg Johana Sagastume MD Work Phone: [facility] 09-20-2022 01:09-0500 SaO2% (BldA) [Mass fraction] 95 % Johana Sagastume MD Work Phone: [facility] 06-10-2022 15:57-0400 SaO2% (BldA) [Mass fraction] 97 % Neptali Fontenot MD Work Phone: [facility] 06-10-2022 15:12-0400 Diastolic blood pressure 78 mm[Hg] Neptali Fontenot MD Work Phone: [facility] 06-10-2022 15:12-0400 Systolic blood pressure 139 mm[Hg] Neptali Fontenot MD Work Phone: [facility] 06-10-2022 15:11-0400 Body mass index (BMI) [Ratio] 50.91 kg/m2 Neptali Fontenot MD Work Phone: [facility] 06-10-2022 15:11-0400 Body weight 165.56 kg Neptali Fontenot MD Work Phone: [facility] 06-10-2022 15:07-0400 Body temperature 98.2 [degF] Neptali Fontenot MD Work Phone: [facility] 06-10-2022 15:07-0400 Heart rate 93 /min Neptali Fontenot MD Work Phone: [facility] 06-10-2022 15:07-0400 Respiratory rate 18 /min Neptali Fontenot MD Work Phone: [facility] Encounters Encounter Date Encounter Type Care Provider Facility Start: 07-04-2024 End: 07-04-2024 ambulatory NEPTALI Leandro FONTENOT [facility] Start: 07-04-2024 Encounter for genera l adult medical examination without abnormal findings [facility] Start: 02-10-2024 End: 02-11-2024 Emergency department patient visit ANA ROSA TATUM [facility] Start: 02-10-2024 End: 02-10-2024 Emergency department patient visit NEPTALI FONTENOT [facility] Start: 10-12-2023 End: 10-12-2023 [facility] Start: 10-09-2023 End: 10-09-2023 Office outpatient visit 15 minutes Smith Mendez DO Work Phone: [facility] Comment on above: Precordial pain (Saira enzo Dx) Start: 10-09-2023 End: 10-09-2023 ambulatory SMITH MENDEZ [facility] Start: 10-08-2023 Telephone encounter [facility] Start: 05-29-2023 End: 05-30-2023 ambulatory [facility] Start: 09-20-2022 End: 09-20-2022 Emergency department patient visit [facility] Start: 09-20-2022 End: 09-20-2022 Emergency department patient visit Johana Sagastume MD Work Phone: [facility] ED Comment on above: Influenza with respi ratory manifestation other than pneumonia (Primary Dx); Influenza A Start: 06-10-2022 End: 06-10-2022 Emergency department patient visit [facility] Start: 06-10-2022 End: 06-10-2022 Emergency department patient visit Neptali Fontenot MD Work Phone: [facility] ED Comment on above: Back strain, initial encounter (Primary Dx); PCOS (polycystic ovarian syndrome) Start: 06-29-2020 End: 06-29-2020 Emergency department patient visit ARTEMIO MCGUIRE Facility:[facility] Start: 07-14-2018 End: 07-15-2018 Patient encounter AMBER RINALDI Facility:[facility] Procedures Date Procedure Procedure Detail Performing Clinician Start: 10-09-2023 Follow-up visit Follow-up SMITH MENDEZ Start: 09-20-2022 Radiologic exam ches t single view Johana Sagastume MD Work Phone: Start: 09-20-2022 COVID-19, RAPID Johana Sagastume MD Work Phone: Start: 09-20-2022 Iaadiadoo influenza Cip radha Sagastume MD Work Phone: Start: 06-10-2022 Us transvaginal Darci Reeves Hammuda PA-C Work Phone: Start: 06-10-2022 Ct abdomen & pelvis w/contrast material Darci Reeves Hammuda PA-C Work Phone: Start: 06-10-2022 Urinalysis microscop ic only Darci Reeves Hammuda PA-C Work Phone: Start: 06-10-2022 Urine test visual color cmprsn meths Darci Reeves Hammuda PA-C Work Phone: Start: 06-10-2022 Basic metabolic pane l calcium total Darci Reeves Hammuda PA-C Work Phone: Plan of Treatment Date Care Activity Detail Author Start: 04-30-2032 DTaP/Tdap/Td vaccine (3 - Td or Tdap) DTaP/Tdap/Td vaccine (3 - Td or Tdap) [facility] Start: 02-16-2025 DTaP,Tdap and Td Vaccines (2 - Td or Tdap) DTaP,Tdap and Td Vaccines (2 - Td or Tdap) [facility] Start: 10-09-2024 Adult BMI Screening Adult BMI Screen ing [facility] Start: 10-09-2024 Tobacco Screening Tobacco Screening [facility] Start: 07-15-2024 Adult BMI Screening Adult BMI Screen ing [facility] Start: 07-14-2024 Tobacco Screening Tobacco Screening [facility] Start: 10-09-2023 End: 10-09-2023 Patient encounter procedure 10/09/2023 2:45 PM EST Office Visit [facility] [address] [place], [place] [address] [address] Smith Mendez, DO [address] [place] [address], [address] [place] [address] [facility] Start: 06-12-2023 Adult BMI Follow Up Plan Adult BMI Follow Up Plan [facility] Start: 05-29-2023 Influenza vaccination Influenza Vacc ine [facility] Start: 05-29-2022 Influenza vaccination Flu vaccine (# 1) [facility] Start: 04-28-2022 Influenza vaccination Flu vaccine (# 1) [facility] Start: 01-15-2022 COVID-19 Vaccine (3 - Booster for Pfizer series) COVID-19 Vaccine (3 - Booster for Pfizer series) [facility] Start: 10-12-2021 COVID-19 Vaccine (3 - Booster for Pfizer series) COVID-19 Vaccine (3 - Booster for Pfizer series) [facility] Start: 12-07-2018 Diabetes screen Diabetes screen [facility] Start: 12-07-2013 Screening for malign ant neoplasm of cervix [facility] Start: 12-07-2004 Screening for malign ant neoplasm of cervix Pap smear [facility] Start: 12-07-2001 Hepatitis C screening Hepatitis C sc reen [facility] Start: 12-07-1998 HIV screening HIV screen [facility] Start: 1995 Depression Screen Depression Screen [facility] Start: 1995 Depression Screening Depression Scre [facility] Start: 12-07-1984 Varicella vaccine (1 of 2 - 2-dose childhood series) Varicella vaccine (1 of 2 - 2-dose childhood series) [facility] End: 09-20-2022 Strep A culture, throat Strep A culture, throat Microbiology STAT One Time for 1 Occurrences starting 09/20/2022 until 09/20/2022 [facility] Work Phone: Comment on above: One Time for 1 Occur rences starting 09/20/2022 until 09/20/2022 End: 06-10-2022 US DUP ABD PEL RETRO SCROT LIMITED [facility] [employer] Work Phone: Comment on above: Once for 1 Occurrenc es starting 06/10/2022 until 06/10/2022 Payers Date Payer Category Payer Medicaid [facility] MEDICAID [facility] MEDICAID [id number] 2022-Present [phone] [address] [place] [address] [id number] 2021 Medicaid [id number]. [id number] 2021 Unknown [id number]. [id number] 1985 Unknown [id number] [id number] 1985 Unknown [id number] 2.16.840.1.153406.3.579.2.173 1983 Unknown [id number] 2.16.840.1.816518.3.579.2.173 1983 Unknown [id number] 2.16.840.1.736402.3.579.2.173 1983 Unknown [id number] 2.16.840.1.280824.3.579.2.1286 1983 Unknown [id number] 2.16.840.1.458279.3.579.2.1286 1983 Unknown [id number] 2.16.840.1.538581.3.579.2.1286 1983 Unknown [id number] 2.16.840.1.930042.3.579.2.1286 1985 Unknown [id number] 2.16.840.1.641528.3.579.2.1286 1983 Unknown [id number] [id number] Unknown [id number] Unknown [id number] Social History Date Type Detail Facility Start: 12-22-2017 End: 10-09-2023 Tobacco smoking status [facility] Never smoked tobacco [facility] Start: 12-22-2017 End: 10-09-2023 Tobacco use and exposure Smokeless tobacco non-user [employer] [facility]: Start: 06-10-2022 End: 09-20-2022 Alcohol intake Current drinker of alcohol (finding) [employer]: Start: 1985 Sex Assigned At Not on file [employer] [facility]: Start: 05-31-2022 End: 09-20-2022 Exposure to SARS-CoV-2 (event) Not sure [employer] [facility]: Start: 07-14-2023 End: 10-09-2023 Alcohol intake Ex-drinker (finding) [facility] Start: 10-11-2020 End: 03-27-2021 [facility] of [facility] Start: 10-11-2020 End: 03-27-2021 Social connection and isolation panel [facility] Do you belong to any clubs or organizations such as christian groups, unions, fraternal or athletic groups, or school groups? No [facility] Are you now , , , , never or living with a partner? Never [facility] How often to you hav e a drink containing alcohol? Monthly or less [facility] How many standard dr inks containing alcohol do you have on a typical day? 1 or 2 [facility] How often do you hav e 6 or more drinks on 1 occasion? Never [facility] How hard is it for y ou to pay for the very basics like food, housing, medical care, and heating Not hard at all [facility] Start: 1985 [email or web address] Start: 04-10-2022 Gender identity Identifies as female gender (finding) [facility] Start: 04-10-2022 Sexual orientation Heterosexual (finding) [facility] Goals Date Patient Goal Desired Activity /State Personal health goal Comment on above: Formatting of this n ote might be different from the original. Evaluation of progress towards goal: safe transition from hospital to home with parents and family support. History of Present illness Narrative 10-09-2023 Smith Cheathamries, DO - 10/09/2023 2:45 PM EST Note Date & Type Note Facility 10-09-2023 History of Present illness Narrative Lupe Abrams Date of visit: 10/09/2023 Date of : 1985 Age: 37 y.o. Patient Active Problem List Diagnosis Abnormal uterine bleeding (AUB) PCOS (polycystic ovarian syndrome) BMI 50.0-59.9, [place] Insulin resistance Hyperinsulinemia Chest pain COVID-19 Pelvic pain Chest pain, unspecified type Allergies Allergen Reactions Nickel Rash No breathing issues, found through skin allergy testing Current Outpatient Medications Medication Sig Dispense Refill ibuprofen (ADVIL,MOTRIN) 800 mg tablet Take 1 tablet (800 mg total) by mouth every 8 (eight) hours as needed. naproxen (NAPROSYN) 500 mg tablet TAKE 1 TABLET BY MOUTH TWICE DAILY NEEDED FOR PAIN WITH MEALS No current facility-administered medications for this visit. Chief Complaint Patient presents with Follow-up HOSP F/U [facility] SCHED W/PT History of Present Illness Lupe was seen today for follow-up of chest pain. She had a negative stress test back in June. She is done well since that time although did develop upper respiratory infection recently and noticed some chest discomfort last evening that occurred with lying down. This went from the midportion of chest to her back area. She was able to have improvement in symptoms with movement. She does not get any chest heaviness or pressure with exertion. Past Medical History: Diagnosis Date Acid reflux Anemia Angina pectoris ([facility]) seen in ER X2- related to COVID; did f/u with echo which was normal Anxiety Arrhythmia Back pain Central stenosis of spinal canal Change in bowel habits Chest pain COVID-19 03/26/2021 Dental disease Difficult intravenous access Fractures Heartburn Herpes History of transfusion Injury of back Insulin resistance Menses regular with excessive bleeding Migraine headache Nausea Obesity PCOS (polycystic ovarian syndrome) Rash Urogenital trichomoniasis UTI (urinary tract infection) Visual changes Visual impairment No data recorded No data recorded No data recorded Past Surgical History: Procedure Laterality Date COLONOSCOPY DAVINCI CYSTECTOMY OVARIAN Bilateral 07/04/2022 Performed by Tal Mendez MD at [facility] DILATION AND CURETTAGE OF UTERUS X2 HYSTEROSCOPY 2018 Family History Problem Relation Age of Onset Depression Mother Kidney disease Mother Back Problems Father Heart disease Father Hepatitis Brother Back Problems Brother No Known Problems Maternal Grandmother No Known Problems Maternal Grandfather Heart disease Paternal Grandmother Hypertension Paternal Grandmother Heart disease Paternal Grandfather Hypertension Paternal Grandfather Anesthesia problems Neg Hx Social History Socioeconomic History Marital status: Single Spouse name: Not on file Number of children: Not on file Years of education: Not on file Highest education level: Not on file Occupational History Not on file Tobacco Use Smoking status: Never Smokeless tobacco: Never Vaping Use Vaping Use: Never used Substance and Sexual Activity Alcohol use: Not Currently Comment: occasionaly Drug use: Never Sexual activity: Defer control/protection: None Other Topics Concern Caffeine Use Yes Social History Narrative Merged History Encounter Social Determinants of Health Financial Resource Strain: Low Risk (03/27/2021) Overall Financial Resource Strain (CARDIA) Difficulty of Paying Living Expenses: Not hard at all Food Insecurity: No Food Insecurity (10/09/2023) Hunger Screening Food Insecurity - Worry: Never True Food Insecurity - Inability: Never True Transportation Needs: No Transportation Needs (03/27/2021) PRAPARE - Transportation Lack of Transportation (Medical): No Lack of Transportation (Non-Medical): No Physical Activity: Inactive (03/27/2021) Exercise Vital Sign Days of Exercise per Week: 0 days Minutes of Exercise per Session: 0 min Stress: Not on file Social Connections: Socially Isolated (03/27/2021) Social Connection and Isolation Panel [NHANES] Frequency of Communication with Friends and Family: Three times a week Frequency of Social Gatherings with Friends and Family: Twice a week Attends Jainism Services: Never Active Member of Clubs or Organizations: No Attends Club or Organization Meetings: Never Marital Status: Never Interpersonal Safety: Not At Risk (03/27/2021) Humiliation, Afraid, Rape, and Kick questionnaire Fear of Current or Ex-Partner: No Emotionally Abused: No Physically Abused: No Sexually Abused: No Review of Systems Review of Systems Eyes: Positive for blurred vision. Respiratory: Positive for cough, shortness of breath and wheezing. Gastrointestinal: Positive for change in bowel habit. Neurological: Positive for headaches and light-headedness. Psychiatric/Behavioral: Positive for depression. The patient is nervous/anxious. CARDIOVASCULAR: Please review HPI. Physical Examination General appearance: Alert, oriented and cooperative. In no acute distress. Skin: Warm and dry to touch. Head: Normocephalic, without obvious abnormality, atraumatic. Ears, Nose, Mouth, Throat: Throat clear without erythema or exudate. Dentition intact. Eyes: Conjunctivae unremarkable, EOM intact. Neck: No JVD, No carotid bruit. Neck supple, trachea midline. Respiratory: Clear to auscultation bilaterally, no use of accessory muscles. Cardiovascular: RRR with normal S1 and S2 with no murmurs. Gastrointestinal: Soft, non-tender. Bowel sounds normal. Musculoskeletal: No peripheral edema. Neurologic: Oriented to time, person and place, affect appropriate. No focal/major motor defects noted. Psychiatric: Appropriate mood, memory and judgement. VITAL SIGNS: BP 142/90 (BP Site: Left Arm, BP Postition: Sitting) Pulse 103 Ht 180.3 cm (5' 10.98 ) Wt (!) 164 kg (361 lb 8 oz) SpO2 98% BMI 50.45 kg/m No orders of the defined types were placed in this encounter. Medications Discontinued During This Encounter Medication Reason cholecalciferol, vitamin D3, 2,000 units tablet cyclobenzaprine (FLEXERIL) 10 mg tablet metFORMIN (GLUCOPHAGE) 500 mg tablet IMPRESSIONS/PLAN 1. Precordial pain She is quite concerned as her father has significant coronary disease and subsequent defibrillator. At this time she does not appear to have any evidence of angina or LV dysfunction. We discussed that she continue to try to reduce her risk by watching her blood pressure, cholesterol, blood sugar, as well as increasing exercise. At this time no further cardiac follow-up is planned, I would be happy to see her in the future if needed. TODAYS ORDERS No orders of the defined types were placed in this encounter. FOLLOW UP Return if symptoms worsen or fail to improve. PCP: Neptali Fontenot MD Referring Physician: Neptali Fontenot MD [address] [place] [address] documented in this encounter [facility] Note 10-08-2023 Telephone Encounter - Jessica Dixon CMA - 10/08/2023 10:10 AM EST Note Date & Type Note Facility 10-08-2023 Miscellaneous Notes Formattin g of this note might be different from the original. Left message for patient to remind them to bring their most current medication list with them to their appointment. documented in this encounter [facility] Telephone encounter Note 10-08-2023 Telephone Encounter - Jessica Dixon CMA - 10/08/2023 10:10 AM EST Note Date & Type Note Facility 10-08-2023 Telephone encount er Note Left message for patient to remind them to bring their most current medication list with them to their appointment. [facility] Hospital Discharge instructions 09-20-2022 Discharge InstructionsAttachments Note Date & Type Note Facility 09-20-2022 Hospital Discharg e instructions Johana Sagastume MD - 09/20/2022 2:23 AM EST Take the medication as prescribed return to ER for any progression of symptoms particular for shortness of breath, extreme weakness or fatigue, intractable nausea vomiting. Please make sure to stay hydrated drink at least 64 ounces of fluid a day. Take I ibuprofen and or Tylenol for fever and pain control. Follow-up with your primary care physician in the next 4 to 5 days. The following attachments cannot be sent through Care Everywhere.Immunization: Influenza ([place])documented in this encounter [facility]: Evaluation note Note Date & Type Note Facility Evaluation note Diagnosis Back strain, initial encounter- Primary PCOS (polycystic ovarian syndrome) Polycystic ovaries documented in this encounter [facility]: Evaluation note Note Date & Type Note Facility Evaluation note Diagnosis Influenza with respiratory manifestation other than pneumonia- Primary Influenza with other respiratory manifestations Influenza A Influenza with other respiratory manifestations documented in this encounter [facility] Phone: Evaluation note Note Date & Type Note Facility Evaluation note Diagnosis Precordial pain- Primary documented in this encounter [facility] Hospital Discharge instructions Attachments Note Date & Type Note Facility Hospital Discharge instructions The following attachments cannot be sent through Care Everywhere.Polycystic Ovary Syndrome ([place])Back: Strain ([place])documented in this encounter [facility]: Instructions Note Date & Type Note Facility Instructions Not on filedocumented in this en counter [facility] Instructions Note Date & Type Note Facility Instructions Not on filedocumented in this en counter [facility] Summary Purpose Family History No Family History Records FoundNo Family History Records FoundNo Family History Records FoundNo Family History Records Found Advance Directives Latest Code Status on File Code Status Date Activated Date Inactivated Comments Full Code 07/14/2023 11:52 PM 07/17/2023 6:02 PM Code Status History Code Status Date Activated Date Inactivated Comments Full Code 03/27/2021 8:15 AM 03/28/2021 7:58 PM Additional Source Comments INFORMATION SOURCE (unrecogn ized section and content) DATE CREATED AUTHOR 08/16/2018 [facility] DATE CREATED AUTHOR AUTHOR'S ORGANIZ ATION 07/11/2020 [facility] DATE CREATED AUTHOR AUTHOR'S ORGANIZ ATION 06/01/2023 [facility] DATE CREATED AUTHOR AUTHOR'S ORGANIZ ATION 07/05/2024 [facility] Reason for Visit (unrecogniz ed section and content) Reason Comments Back Pain Left lower radiating around to the front and radiating down the left leg. Pt states that while she was trying to put her pants on she felt some thing pop Reason Comments Cough Patient presents to the emergency department with complaint of not feeling well. Reports cough began Thursday. Cough is non productive She began to experience a sore throat . Had a virtual appointment with Urgent Care Yesterday placed on Bromed and prednisolone. Tonight when she was trying to sleep reports shortness of breath began and seemed to be getting worse. Shortness of Breath Reason Comments Follow-up HOSP F/U [facility] SCHED W /PT Ordered Prescriptions (unrec ognized section and content) Prescription Sig Dispensed Refills Start Date End Da te naproxen (NAPROSYN) 500 MG tablet Take 1 tablet by mouth 2 times daily as needed for Pain (with meals) 20 tablet 0 06/10/2022 06/20/2022 lidocaine 4 % external patch Place 1 patch onto the skin every [address] 1 patch onto the skin daily 12 hours on, 12 hours off. 30 patch 0 06/10/2022 07/10/2022 cyclobenzaprine (FLEXERIL) 10 MG tablet Take 1 tablet by mouth 3 times daily as needed for Muscle spasms 20 tablet 0 06/10/2022 06/17/2022 Prescription Sig Dispensed Refills Start Date End Da te oseltamivir (TAMIFLU) 75 MG capsule Take 1 capsule by mouth 2 times daily for 5 days 9 capsule 0 09/20/2022 09/25/2022 Scheduled Active and Recently Administ ered Medications (unrecognized section and content) Medication Order 06/08/2022 06/09/2022 06/10/2022 HYDROcodone-acetaminophen (NORCO) 5-325 MG per tablet 1 tablet (COMPLETED) 1 tablet, Oral, ONCE, 1 dose, On Thu06/10/22 at 1800 1811 (Given - Provid er: Jim Ashraf RN) ketorolac (TORADOL) injection 30 mg (COMPLETED) Ketorolac is contraindicated in patients with advanced renal impairment and in patients at risk of renal failure due to volume depletion. For 65 years of age and older OR weight less than 50 kg, use 15 mg IV every 6 hours; MAX dose: 60 mg/day. Dose greater than 30 mg must be administered via intramuscular route. Do not administer for more than 5 days., 30 mg, IntraMUSCular, ONCE, 1 dose, On Thu06/10/22 at 1800 1814 (Given - Provid er: Jim Ashraf RN) orphenadrine (NORFLEX) injection 60 mg (COMPLETED) 60 mg, IntraMUSCular, ONCE, 1 dose, On Thu06/10/22 at 1800 1813 (Given - Provid er: Jim Ashraf RN) PRN Medication Order 06/08/2022 06/09/2022 06/10/2022 iopamidol (ISOVUE-370) 76 % injection 75 mL (COMPLETED) 75 mL, IntraVENous, IMG ONCE PRN, 1 dose, Starting on Thu06/10/22 at 1657, Until Thu06/10/22 at 1658, Other 1658 (Given - Provid er: Elmo Costa) Scheduled Medication Order 09/18/2022 09/19/2022 09/20/2022 oseltamivir (TAMIFLU) capsule 75 mg (COMPLETED) 75 mg, Oral, ONCE, 1 dose, On 09/20/22 at 0230 0235 (Given - Provid er: Ana Rosa Viera RN) Care Teams (unrecognized sec tion and content) Park Interpreter Relationship Specialty Start Date End Date Neptali Fontenot MD [address] [place] [address] PCP - General 09/06/13 Park Interpreter Relationship Specialty Start Date End Date Neptali Fontenot MD [address] [place] [address] PCP - General 09/06/13 Park Interpreter Relationship Specialty Start Date End Date Neptali Fontenot MD [address] [place] [id number] PCP - General Family Medicine 02/10/19 Park Interpreter Relationship Specialty Start Date End Date Neptali Fontenot MD [address] [place] [id number] PCP - General Family Medicine 02/10/19 FOR RECORDS PERTAINING TO PATIENTS WHO ARE OR HAVE BEEN ENROLLED IN A CHEMICAL DEPENDENCY/SUBSTANCEABUSE PROGRAM, SOME INFORMATION MAY BE OMITTED. This clinical summary was aggregated from multiple sources. Caution should be exercised in using it in the provision of clinical care. This summary normalizes information from multiple sources, and as a consequence, information in this document may materially change the coding, format and clinical context of patient data. In addition, data may be omitted in some cases. CLINICAL DECISIONS SHOULD BE BASED ON THE PRIMARY CLINICAL RECORDS. [facility] [employer] [facility]. provides no warranty or guarantee of the accuracy or completeness of information in this document.
[2025-02-08 10:02] LABS: Anion Gap 13.2; BUN Creatinine Ratio 13.2; Calcium 8.9 mg/dL (8.5-10.1); Carbon Dioxide 26.4 mmol/L (21.0-32.0); Chloride 103 mmol/L (98-107); Estimated GFR (African America >60 (>=60 mL/min/1.73m^2); Estimated GFR (Non-African Ame >60 (>=60 mL/min/1.73m^2); Glucose 115 mg/dL (74-106); Potassium 3.6 mmol/L (3.5-5.1); Sodium 139 mmol/L (136-145)
[2025-02-08 10:05] LABS: Troponin I High Sensitivity <4.0 pg/mL (4.0-51.3)
== END 2025-02-08 10:41 | disposition home or self-care (01) ==
PROVIDERS: Emergency Provider Emergency Medicine; PCP Family Medicine
DX: R07.9 Chest pain, unspecified (principal)
CPT/HCPCS: 36415; 71045; 80048; 84484; 85025; 93005; 99285

== ENCOUNTER 2025-04-08 08:16 | Emergency (ER) | payer BC, OTHER, SELFPAY ==
[2025-04-08] VITALS (19 sets, daily range): BP systolic 123–143; BP diastolic 81–88; PULSE 75–93; TEMP 36.8; O2SAT 95–98; BMI 53.0
--- OUTSIDE RECORDS SUMMARY | 2025-04-08 08:21 | XMS_ITS | CCD ---
Author Organization [facility] Care Team Providers Care Implant Polisher Name Role Phone NIMCO AMBER METCALF Unavailable Unavailable ARTEMIO MCGUIRE Admitting Unavailable SELF, REFERRED Primary Care Unavailable SELF, REFERRED Referring Unavailable MATTHEW LYNCH Attending Unavailable Po JAIMES, Neptali A Primary Care Provider [phone] Po JAIMES, Neptali Reeves Primary Care Provider [phone] PO, NEPTALI A Primary Care Unavailable ANTONETTE [...] JAIMES, Neptali A Primary Care Provider [phone] Allergies Allergy Classification Reported Allergen(s) Allergy Type [...] width (RBC) [Ratio] 14.5 % Normal 11.5-15.0 [facility] Comment on above: Performed By: #### C MP, CBC #### [facility] ([id number]) [address], [address] [place] [address] Hematocrit (Bld) [Volume fraction] 38.5 % Normal 35-47 [facility] Comment on above: Performed By: #### C MP, CBC #### [facility] ([id number]) [address], [address] [place] [address] Hemoglobin (Bld) [Mass/Vol] 13.4 g/dL Normal 11.7-15.5 [facility] Comment on above: Performed By: #### C MP, CBC #### [facility] ([id number]) [address], [address] [place] [address] MCH (RBC) [Entitic mass] 29.7 pg Normal 27-34 [facility] Comment on above: Performed By: #### C MP, CBC #### [facility] ([id number]) [address], [address] [place] [address] MCHC (RBC) [Mass/Vol] 34.7 g/dL Normal 32-36 [facility] Comment on above: Performed By: #### C MP, CBC #### [facility] ([id number]) [address], [address] [place] [address] MCV (RBC) [Entitic vol] 86 fL Normal 80-100 [facility] Comment on above: Performed By: #### C MP, CBC #### [facility] ([id number]) [address] [place] [address] Platelet mean volume (Bld) [Entitic vol] 7.7 fL Normal 7-12 [facility] Comment on above: Performed By: #### C MP, CBC #### [facility] ([id number]) [address], [address] [place] [address] Platelets (Bld) [#/Vol] 222 10*3/uL Normal 150-450 [facility] Comment on above: Performed By: #### C MP, CBC #### [facility] ([id number]) [address], [address] [place] [address] RBC COUNT 4.50 X10E12/L Normal 3.80-5.20 [facility] Comment on above: Performed By: #### C MP, CBC #### [facility] ([id number]) [address], [address] [place] [address] WBC (Bld) [#/Vol] 9.1 10*3/uL Normal 4.0-11.0 [facility] Comment on above: Performed By: #### C MP, CBC #### [facility] ([id number]) [address], [address] [place] [address] COMPREHENSIVE METABOLIC PANE Vitor 07-04-2024 Albumin [Mass/Vol] 3.8 g/dL Normal 3.2-5.3 [facility] Comment on above: Performed By: #### C MP, CBC #### [facility] ([id number]) [address], [address] [place] [address] ALP [Catalytic activity/Vol] 62 U/L Normal 39-130 [facility] Comment on above: Performed By: #### C MP, CBC #### [facility] ([id number]) [address], [address] [place] [address] ALT [Catalytic activity/Vol] 14 U/L Normal 0-31 [facility] Comment on above: Performed By: #### C MP, CBC #### [facility] ([id number]) [address], [address] [place] [address] Anion gap [Moles/Vol] 11 mmol/L Normal 5-15 [facility] Comment on above: Performed By: #### C MP, CBC #### [facility] ([id number]) [address], [address] [place] [address] AST [Catalytic activity/Vol] 14 U/L Normal 0-41 [facility] Comment on above: Performed By: #### C MP, CBC #### [facility] ([id number]) [address] [place] [address] Bilirubin [Mass/Vol] 0.4 mg/dL Normal 0.3-1.2 [facility] Comment on above: Performed By: #### C CAPRICE, CBC #### [facility] ([id number]) [address], [address] [place] [address] Calcium [Mass/Vol] 8.6 mg/dL Normal 8.5-10.5 [facility] Comment on above: Performed By: #### C MP, CBC #### [facility] ([id number]) [address], [address] [place] [address] Chloride [Moles/Vol] 105 mmol/L Normal 98-109 [facility] Comment on above: Performed By: #### C MP, CBC #### [facility] ([id number]) [address], [address] [place] [address] CO2 [Moles/Vol] 24 mmol/L Normal 22-32 [facility] Comment on above: Performed By: #### C MP, CBC #### [facility] ([id number]) [address], [address] [place] [address] Creatinine [Mass/Vol] 0.51 mg/dL Normal 0.40-1.00 [facility] Comment on above: Result Comment: METH OD TRACEABLE TO IDMS STANDARD Performed By: #### C MP, CBC #### [facility] ([id number]) [address], [address] [place] [address] eGFR (CKD-EPI) NON-RACE DEPENDENT >90 Normal >59 [facility] Comment on above: Result Comment: Reported eGFR is based on the CKD-EPI 2020 equation that does not use a race coefficient. Performed By: #### C MP, CBC #### [facility] ([id number]) [address], [address] [place] [address] Glucose [Mass/Vol] 97 mg/dL Normal 65-99 [facility] Comment on above: Performed By: #### C MP, CBC #### [facility] ([id number]) [address] [address] [place] [address] Potassium [Moles/Vol] 3.5 mmol/L Normal 3.5-5.0 [facility] Comment on above: Performed By: #### C MP, CBC #### [facility] ([id number]) [address], [address] [place] [address] Protein [Mass/Vol] 6.9 g/dL Normal 6.0-8.0 [facility] Comment on above: Performed By: #### C MP, CBC #### [facility] ([id number]) [address] [address] [place] [address] Sodium [Moles/Vol] 140 mmol/L Normal 134-146 [facility] Comment on above: Performed By: #### C MP, CBC #### [facility] ([id number]) [address], [address] [place] [address] Urea nitrogen [Mass/Vol] 8 mg/dL Normal 5-23 [facility] Comment on above: Performed By: #### C MP, CBC #### [facility] ([id number]) [address] [place] [address] URINALYSISon 07-04-2024 Bilirubin Ql (U) Negative Normal NEG [facility] Comment on above: Performed By: #### U A #### [facility] ([id number]) [address], [address] [place] [address] BLOOD/HGB Small Abnormal NEG [facility] Comment on above: Performed By: #### U A #### [facility] ([id number]) [address] [place] [address] Color (U) YELLOW Normal YELLOW [facility] Comment on above: Performed By: #### U A #### [facility] ([id number]) [address], [address] [place] [address] Glucose Ql (U) Negative Normal NEG [facility] Comment on above: Performed By: #### U A #### [facility] ([id number]) [address] [place] [address] Ketones Ql (U) Negative Normal NEG [facility] Comment on above: Performed By: #### U A #### [facility] ([id number]) [address], [address] [place] [address] Leukocyte esterase Test strip Ql (U) Negative Normal NEG [facility] Comment on above: Performed By: #### U A #### [facility] ([id number]) [address], [address] [place] [address] MUCOUS PRESENT Abnormal NONE [facility] Comment on above: Performed By: #### U A #### [facility] ([id number]) [address], [address] [place] [address] Nitrite Ql (U) Negative Normal NEG [facility] Comment on above: Performed By: #### U A #### [facility] ([id number]) [address], [address] [place] [address] pH (U) 6.5 [pH] Normal 5.0-8.5 [facility] Comment on above: Performed By: #### U A #### [facility] ([id number]) [address], [address] [place] [address] Protein Ql (U) Trace Abnormal NEG [facility] Comment on above: Performed By: #### U A #### [facility] ([id number]) [address], [address] [place] [address] R.B.CELLS 3 /hpf Normal 0-5 [facility] Comment on above: Performed By: #### U A #### [facility] ([id number]) [address] [place] [address] Specific gravity (U) [Rel density] 1.017 Normal 1.003-1.035 [facility] Comment on above: Performed By: #### U A #### [facility] ([id number]) [address], [address] [place] [address] SQUAMOUS EPITHELIUM 4 /hpf Normal 0-5 [facility] Comment on above: Performed By: #### U A #### [facility] ([id number]) [address], [address] [place] [address] TURBID[address] CLE[address] Normal CLEAR [facility] Comment on above: Performed By: #### U A #### [facility] ([id number]) [address], [address] [place] [address] Urobilinogen (U) [Mass/Vol] mg/dL Normal <1.1 [facility] Comment on above: Performed By: #### U A #### [facility] ([id number]) [address], [address] [place] [address] W.B.CELLS 3 /hpf Normal 0-5 [facility] Comment on above: Performed By: #### U A #### [facility] ([id number]) [address] [place] [address] XR ANKLE RT MIN 3 VWSon 01-26 XR ANKLE RT MIN 3 VWS XR ANKLE RT MIN 3 VWS . Right ankle: HISTORY: Ankle pain post injury. 3 views the right ankle were obtained. Calcaneal spurring noted. Large enthesophyte present at the Achilles insertion. Ankle mortise is intact. IMPRESSION: No acute findings. 4 Finalized by Rubin Junior MD on 02/10/2024 1:[address] [facility] XR FOOT RT MIN 3 VWSon 02-09 [...] Saldana MD on 02/10/2024 1:[address] [facility] XR CHEST 2 VWSon 10-12-2023 XR CHEST [...] Borden MD on 10/12/2023 3:[address] [facility] Measles (Rubeola) Imon 06-01 Measles (Rubeola) Im 1.74 Normal >1.09 [facility] Comment on above: Result Comment: Interpretation: IMMUNE Reference Range: <0.91 Not Immune 0.91-1.09 Equivocal >1.09 Immune Performed By: #### C OVRB #### [facility] [address] [place] [address] [place] [address] Poker Supervisor: Carlos Mckoy MD Mumps,Immun,Abon 06-01-2023 Mumps,Immun,Ab 2.34 Normal >1.09 [facility] Comment on above: Result Comment: Interpretation: IMMUNE Reference Range: <0.91 Not Immune 0.91-1.09 Equivocal >1.09 Immune Performed By: #### C OVRB #### [address] [place], [place] [id number] Poker Supervisor: Carlos Mckoy MD VZ Immunityon 06-01-2023 VZ Immunity 1.21 Normal >1.09 [facility] Comment on above: Result Comment: Interpretation: IMMUNE Reference Range: <0.91 Not Immune 0.91-1.09 Equivocal >1.09 Immune Performed By: #### C OVRB #### [address] [place] [address] Poker Supervisor: Carlos Mckoy MD Hep B Surf Abon 05-30-2023 Hep B Surf Ab 213.00 mIU/mL High <10 [facility] Comment on above: Result Comment: REFERENCE [...] infection. Performed By: #### C OVRB #### [facility] [address] [place] [address] Poker Supervisor: Carlos Mckoy MD Rubella Ab, IgGon 05-30-2023 Rubella Ab, IgG >500.0 Normal [facility] Comment on above: Result Comment: REFERENCE RANGE: <5.0 NON-REACTIVE (non-immune) 5.0 TO 9.9 EQUIVOCAL >=10.0 REACTIVE (immune) Performed By: #### C OVRB #### [facility] [address] [place] [address] Poker Supervisor: Carlos Mckoy MD COVID-19, Rapidon 09-20-2022 SARS-CoV-2 (COVID-19) RNA JEAN MARIE+probe Ql (Unsp spec) Not detected Not Detected [facility] Comment on above: Rapid NAAT: The specimen [...] management decisions. Fact sheet for Healthcare Providers: https://www.fda.gov/media/466075/download Fact sheet for Patients: https://www.fda.gov/media/186739/download Methodology: Isothermal Nucleic Acid Amplification Specimen Description .NASOPHARYNGEAL SWAB [facility] Flu A/B Ag Detectionon 09-20 Flu A Ag Detection Positive Abnormal NEG [facility] Comment on above: Result Comment: for Influenza A Antigen Performed By: #### F LUABA #### [facility] [address] [place] [address] Poker Supervisor: Carlos Mckoy MD Flu B Ag Detection Negative Normal NEG [facility] Comment on above: Result Comment: for Influenza B Antigen. Performed By: #### F LUABA #### [facility] [address] [place] [address] Poker Supervisor: Carlos Mckoy MD Rapid influenza A/B antigens on 09-20-2022 Flu A Antigen Positive Abnormal NEGATIVE [facility] Comment on above: for Influenza A Anti gen Flu B Antigen Negative NEGATIVE [facility] Comment on above: for Influenza B Anti gen. Interpretation and review of laboratory results Abnormal [facility] [id number] 09-20-2022 SARS-CoV-2 (COVID-19) RNA JEAN MARIE+probe Ql (Unsp spec) Not detected Normal NOTDET [facility] Comment on above: Result Comment: Rapid [...] management decisions. Fact sheet for Healthcare Providers: https://www.fda.gov/media/393369/download Fact sheet for Patients: https://www.fda.gov/media/174335/download Methodology: Isothermal Nucleic Acid Amplification Performed By: #### C OVRB #### [facility] [address] [place] [address] Poker Supervisor: Carlos Mckoy MD Strep Gr A Direct Agon 09-20 Strep Gr A Direct Ag Negative Normal NEG [facility] Comment on above: Result Comment: Rapi d Strep A negative. A negative Rapid Group A Strep Screen result does not rule out the possibility of Group A Streptococci in the specimen. A Group A Strep DNA test is available upon request. Performed By: #### C OVRB #### [facility] [address] [place] [address] Poker Supervisor: Carlos Mckoy MD Source .THROAT SWAB Normal [facility] Comment on above: Performed By: #### C OVRB #### [facility] [address] [place] [address] Poker Supervisor: Carlos Mckoy MD Strep Screen Group A Throato n 09-20-2022 S. pyogenes Ag Ql (Throat) Negative NEGATIVE [facility] Comment on above: Rapid Strep A negati ve. A negative Rapid Group A Strep Screen result does not rule out the possibility of Group A Streptococci in the specimen. A Group A Strep DNA test is available upon request. Source .THROAT SWAB [facility] XR CHEST (SINGLE VIEW FRONTA L)on [...] Denis Brannon MD 09/20/22 Final result Normal [facility] No acute cardiopulmonary abnormality. [facility] RIS CONSOLIDATED EXAMINATION: ONE XRAY VIEW OF THE CHEST 09/20/2022 1:34 am COMPARISON: 12/22/2017 HISTORY: ORDERING SYSTEM PROVIDED HISTORY: sob cough TECHNOLOGIST PROVIDED HISTORY: sob cough FINDINGS: The lungs are clear. The cardiac and mediastinal contours are normal. There is no pleural effusion or pneumothorax. No acute osseous abnormality is identified. [facility] RIS CONSOLIDATED Denis Brannon MD - 09/20/2022 EXAMINATION: ONE XRAY VIEW OF THE CHEST 09/20/2022 1:34 am COMPARISON: 12/22/2017 HISTORY: ORDERING SYSTEM PROVIDED HISTORY: sob cough TECHNOLOGIST PROVIDED HISTORY: sob cough FINDINGS: The lungs are clear. The cardiac and mediastinal contours are normal. There is no pleural effusion or pneumothorax. No acute osseous abnormality is identified. IMPRESSION: No acute cardiopulmonary abnormality. SHIFT Phone: Radiology Study observation (narrative) [employer] Phone: XR CHEST (SINGLE VIEW FRONTA L)Ordered By: Denis Brannon on 09-20-2022 SHIFT Phone: US DUP ABD PEL RETRO SCROT [...] US in 3-6 months. Reference: Radiology 2019 Jul;293(3):[id number] Interpreted by: Denis Howe MD Signed by: Denis Howe MD 06/11/22 Final result Normal [facility] Basic Metabolic Panelon 05-29 Anion gap [Moles/Vol] 9 mmol/L 9 - 17 mmol/L [facility] Calcium [Mass/Vol] 9.9 mg/dL 8.6 - 10. 4 mg/dL [facility] Chloride [Moles/Vol] 102 mmol/L 98 - 10 7 mmol/L [facility] CO2 [Moles/Vol] 27 mmol/L 20 - 31 mmol/L [facility] Creatinine [Mass/Vol] 0.49 mg/dL Low 0.5 - 0.9 mg/dL [facility] GFR >60 60 - PI NF mL/min [facility] GFR Non- >60 60 - PINF mL/min [facility] Glucose [Mass/Vol] 101 mg/dL High 70 - 99 mg/dL [facility] Interpretation and review of laboratory results Abnormal [facility] Potassium [Moles/Vol] 4.0 mmol/L 3.7 - 5.3 mmol/L [facility] Sodium [Moles/Vol] 138 mmol/L 135 - 144 mmol/L [facility] Urea nitrogen (BldV) [Mass/Vol] 8 mg/dL 6 - 20 mg/dL [facility] Urea nitrogen/Creatinine (Bld) [Mass ratio] 16 9 - 20 [facility] Basic Metabolic Profon 06-10 (cont.) Normal [facility] Comment on above: Result Comment: Aver age GFR for 30-39 years old: 107 mL/min/1.73sq m Chronic Kidney Disease: <60 mL/min/1.73sq m Kidney failure: <15 mL/min/1.73sq m eGFR calculated using average adult body mass. Additional eGFR calculator available at: http://www.Butlr.com/multiple_crcl_2012.htm Performed By: #### C OVRB #### [facility] [address] [place], [place] [id number] Poker Supervisor: Carlos Mckoy MD Anion gap [Moles/Vol] 9 mmol/L Normal 9-17 [facility] Comment on above: Performed By: #### C OVRB #### [facility] [address] [place] [address] Poker Supervisor: Carlos Mckoy MD BUN/CRE Ratio 16 Normal 9-20 [facility] Comment on above: Performed By: #### C OVRB #### [address] [place] [address] Poker Supervisor: Carlos Mckoy MD Calcium [Mass/Vol] 9.9 mg/dL Normal 8.6-10.4 [facility] Comment on above: Performed By: #### C OVRB #### [address] [place] [address] Poker Supervisor: Carlos Mckoy MD Chloride [Moles/Vol] 102 mmol/L Normal 98-107 [facility] Comment on above: Performed By: #### C OVRB #### [facility] [address] [place] [address] [place] [address] Poker Supervisor: Carlos Mckoy MD CO2 [Moles/Vol] 27 mmol/L Normal 20-31 [facility] Comment on above: Performed By: #### C OVRB #### [facility] [address] [place] [address] [address] [place], [place] [id number] Poker Supervisor: Carlos Mckoy MD Creatinine [Mass/Vol] 0.49 mg/dL Low 0.50-0.90 [facility] Comment on above: Performed By: #### C OVRB #### [facility] [address] [place] [address] [address] [place], [place] [id number] Poker Supervisor: Carlos Mckoy MD GFR, Amer >60 Normal >60 [facility] Comment on above: Performed By: #### C OVRB #### [facility] [address] [place], [place] [address] Poker Supervisor: Carlos Mckoy MD GFR,non Amer >60 Normal >60 [facility] Comment on above: Performed By: #### C OVRB #### [facility] [address] [place] [id number] Poker Supervisor: Carlos Mckoy MD Glucose [Mass/Vol] 101 mg/dL High 70-99 [facility] Comment on above: Performed By: #### C OVRB #### [facility] [address] [place] [address] [place] [place], [place] [id number] Poker Supervisor: Carlos Mckoy MD Potassium [Moles/Vol] 4.0 mmol/L Normal 3.7-5.3 [facility] Comment on above: Performed By: #### C OVRB #### [facility] [address] [place] [address] [address] [place], [place] [id number] Poker Supervisor: Carlos Mckoy MD Sodium [Moles/Vol] 138 mmol/L Normal 135-144 [facility] Comment on above: Performed By: #### C OVRB #### [facility] [address] [place], [place] [address] Poker Supervisor: Carlos Mckoy MD Staging: Normal [facility] Comment on above: Result Comment: Stag e 1: Some kidney damage normal GFR Stage 2: Mild kidney damage GFR 60-89 Stage 3: Moderate kidney damage GFR 30-59 Stage 4: Severe kidney damage GFR 15-29 Stage 5: Severe kidney damage GFR <15 ESRD - chronic treatment by dialysis or transplant Performed By: #### C OVRB #### [facility] [address] [place] [id number] Poker Supervisor: Carlos Mckoy MD Urea nitrogen [Mass/Vol] 8 mg/dL Normal 6-20 [facility] Comment on above: Performed By: #### C OVRB #### [facility] [address] [place] [address] Poker Supervisor: Carlos Mckoy MD CBC with Auto Differentialon 06-10-2022 Absolute Eos # 0.40 [facility] Absolute Immature Granulocyte 0.12 [facility] Absolute Lymph # 3.13 [facility] Absolute [place] # 1.08 [facility] Basophils (Bld) [#/Vol] 0.07 10*3/uL [facility] Basophils/100 WBC (Bld) 1 % 0 - 2 % [facility] Eosinophils/100 WBC (Bld) 3 % 1 - 4 % [facility] Hematocrit (Bld) [Volume fraction] 40.2 % 36.3 - 47.1 % [facility] Hemoglobin (Bld) [Mass/Vol] 13.2 g/dL 11.9 - 15.1 g/dL [facility] Immature granulocytes/100 WBC (Bld) 1 % High 0 [facility] Interpretation and review of laboratory results Abnormal [facility] Lymphocytes/100 WBC (Bld) 25 % 24 - 43 % [facility] MCH (RBC) [Entitic mass] 28.6 pg 25.2 - 33.5 pg [facility] MCHC (RBC) [Mass/Vol] 32.8 g/dL 28.4 - 34.8 g/dL [facility] MCV (RBC) [Entitic vol] 87.0 fL 82.6 - 102.9 fL [facility] Monocytes/100 WBC (Bld) 9 % 3 - 12 % B [facility] NRBC Automated 0.0 0.0 per 100 WBC [facility] Platelet distribution width (Bld) [Ratio] 13.7 % 11.8 - 14.4 % [facility] Platelet mean volume (Bld) [Entitic vol] 8.7 fL 8.1 - 13.5 fL [facility] Platelets (Bld) [#/Vol] 255 10*3/uL [facility] RBC (Bld) [#/Vol] 4.62 10*6/uL 3.95 - 5.1 1 m/uL [facility] Segmented neutrophils/100 WBC (Bld) 61 % 36 - 65 % [facility] Segs Absolute 7.56 [facility] WBC (Bld) [#/Vol] 12.4 10*3/uL High [facility] CBC with Diffon 06-10-2022 Abs. Basophil 0.07 k/uL Normal 0.00-0.20 [facility] Comment on above: Performed By: #### C DP, BMP #### [facility] [address] [place] [address] [address] [place] [id number] Poker Supervisor: Carlos Mckoy MD Abs.Imm.Granulocyte 0.12 k/uL Normal 0.00-0.30 [facility] Comment on above: Performed By: #### C DP, BMP #### [facility] [address] [place], [facility] Poker Supervisor: Carlos Mckoy MD Abs.Neutrophil (Seg) 7.56 k/uL Normal 1.50-8.10 [facility] Comment on above: Performed By: #### C DP, BMP #### [address] [place], [facility] Poker Supervisor: Carlos Mckoy MD Basophils/100 WBC (Bld) 1 % Normal 0-2 [facility] Comment on above: Performed By: #### C DP, BMP #### [facility] [address] [place] [address] Poker Supervisor: Carlos Mckoy MD Eosinophils (Bld) [#/Vol] 0.40 10*3/uL Normal 0.00-0.44 [facility] Comment on above: Performed By: #### C DP, BMP #### [facility] [address] [place] [address] Dr. [place], [facility]83 Poker Supervisor: Carlos Mckoy MD Eosinophils/100 WBC (Bld) 3 % Normal 1-4 [facility] Comment on above: Performed By: #### C DP, BMP #### [address] Araiza, [facility]83 Poker Supervisor: Carlos Mckoy MD Erythrocyte distribution width (RBC) [Ratio] 13.7 % Normal 11.8-14.4 [facility] Comment on above: Performed By: #### C DP, BMP #### [address] Araiza, [facility]83 Poker Supervisor: Carlos Mckoy MD Hematocrit (Bld) [Volume fraction] 40.2 % Normal 36.3-47.1 [facility] Comment on above: Performed By: #### C DP, BMP #### [address] Araiza, [facility]83 Poker Supervisor: Carlos Mckoy MD Hemoglobin (Bld) [Mass/Vol] 13.2 g/dL Normal 11.9-15.1 [facility] Comment on above: Performed By: #### C DP, BMP #### [address] Araiza, [facility]83 Poker Supervisor: Carlos Mckoy MD Immature granulocytes/100 WBC (Bld) 1 % High 0 [facility] Comment on above: Performed By: #### C DP, BMP #### [address] Araiza, [facility]83 Poker Supervisor: Carlos Mckoy MD Lymphocytes (Bld) [#/Vol] 3.13 10*3/uL Normal 1.10-3.70 [facility] Comment on above: Performed By: #### C DP, BMP #### [address] Araiza, [facility]83 Poker Supervisor: Carlos Mckoy MD Lymphocytes/100 WBC (Bld) 25 % Normal 24-43 [facility] Comment on above: Performed By: #### C DP, BMP #### [facility] [address] [place] [address] Poker Supervisor: Carlos Mckoy MD MCH (RBC) [Entitic mass] 28.6 pg Normal 25.2-33.5 [facility] Comment on above: Performed By: #### C DP, BMP #### [facility] [address] [place] [address] Poker Supervisor: Carlos Mckoy MD MCHC (RBC) [Mass/Vol] 32.8 g/dL Normal 28.4-34.8 [facility] Comment on above: Performed By: #### C DP, BMP #### [address] [place] [address] Poker Supervisor: Carlos Mckoy MD MCV (RBC) [Entitic vol] 87.0 fL Normal 82.6-102.9 [facility] Comment on above: Performed By: #### C DP, BMP #### [address] [place] [address] Poker Supervisor: Carlos Mckoy MD Monocytes (Bld) [#/Vol] 1.08 10*3/uL Normal 0.10-1.20 [facility] Comment on above: Performed By: #### C DP, BMP #### [facility] [address] [place] [address] Poker Supervisor: Carlos Mckoy MD Monocytes/100 WBC (Bld) 9 % Normal 3-12 M [facility] Comment on above: Performed By: #### C DP, BMP #### [facility] [address] [place] [address] Poker Supervisor: Carlos Mckoy MD Neutrophil (Seg) 61 % Normal 36-65 [facility] Comment on above: Performed By: #### C DP, BMP #### [address] [place], [place] [id number] Poker Supervisor: Carlos Mckoy MD NRBC Automated 0.0 per 100 WBC Normal 0.0 [facility] Comment on above: Performed By: #### C DP, BMP #### [address] [place], [facility]83 Poker Supervisor: Carlos Mckoy MD Platelet mean volume (Bld) [Entitic vol] 8.7 fL Normal 8.1-13.5 [facility] Comment on above: Performed By: #### C DP, BMP #### [address] [place], [facility]83 Poker Supervisor: Carlos Mckoy MD Platelets (Bld) [#/Vol] 255 10*3/uL Normal 138-453 [facility] Comment on above: Performed By: #### C DP, BMP #### [address] [place], [place] [id number] Poker Supervisor: Carlos Mckoy MD RBC (Bld) [#/Vol] 4.62 10*6/uL Normal 3.95-5.11 [facility] Comment on above: Performed By: #### C DP, BMP #### [address] [place], [place] [id number] Poker Supervisor: Carlos Mckoy MD WBC (Bld) [#/Vol] 12.4 10*3/uL High 3.5-11.3 [facility] Comment on above: Performed By: #### C DP, BMP #### [address] [place] [address] Poker Supervisor: Carlos Mckoy MD CT ABDOMEN PELVIS W [...] Cornell Stearns MD 06/10/22 Final result Normal [facility] CT ABDOMEN PELVIS W IV CONTR [...] from December 2014. Hepatic steatosis with hepatomegaly. [facility] EXAMINATION: CT OF THE ABDOMEN AND [...] compared to the previous exam from 2014. [facility] CONSOLIDATED Cornell Stearns MD - [...] 2014. Hepatic steatosis with hepatomegaly. [facility] Work Phone: Radiology Study observation (narrative) [facility] [employer] Work Phone: CT ABDOMEN PELVIS W IV CONTR AST Additional Contrast? NoneOrdered By: Cornell Stearns on 06-10-2022 [facility] Work Phone: HCG, ,Urineon 06-10 Beta HCG ( test) Ql (U) Negative Normal NEG [facility] Comment on above: Result Comment: Spec imens with hCG levels near the threshold of the test (25 mIU/mL) may give a negative or indeterminate result. In such cases, another test should be performed with a new specimen in 48-72 hours. If early is suspected clinically in this setting, correlation with quantitative serum b-hCG level is suggested. [facility] [employer] has confirmed the use of plasma for this test. This has not been cleared or approved by the U.S. Food and Drug Administration. The FDA has determined that such clearance is not necessary. Performed By: #### U MICAO, UAX, [facility] #### [facility] [address] [place] [address] [place] [address] Poker Supervisor: Carlos Mckoy MD Laboratory - Chemistry and C hemistry - challengeon 06-10-2022 GFR/1.73 sq M.predicted MDRD (S/P/Bld) [Vol rate/Area] [facility] Comment on above: Average GFR for 30-3 9 years old: 107 mL/min/1.73sq m Chronic Kidney Disease: <60 mL/min/1.73sq m Kidney failure: <15 mL/min/1.73sq m eGFR calculated using average adult body mass. Additional eGFR calculator available at: http://[email or web address]/multiple_crcl_[email or web address] Stage 1: Some kidney damage normal GFR Stage 2: Mild kidney damage GFR 60-89 Stage 3: Moderate kidney damage GFR 30-59 Stage 4: Severe kidney damage GFR 15-29 Stage 5: Severe kidney damage GFR <15 ESRD - chronic treatment by dialysis or transplant Microscopic Urinalysison Bacteria, UA 1+ Abnormal None [facility] Epithelial Cells UA 0 TO [address] [facility] Interpretation and review of laboratory results Abnormal [facility] Mucus, UA 3+ Abnormal None [facility] RBC, UA 0 TO 2 [facility] WBC, UA 0 TO 2 [facility] , Urineon 2 Beta HCG ( test) Ql (U) Negative NEGATIVE [facility] Comment on above: Specimens with hCG l evels near the threshold of the test (25 mIU/mL) may give a negative or indeterminate result. In such cases, another test should be performed with a new specimen in 48-72 hours. If early is suspected clinically in this setting, correlation with quantitative serum b-hCG level is suggested. [facility] has confirmed the use of plasma for this test. This has not been cleared or approved by the U.S. Food and Drug Administration. The FDA has determined that such clearance is not necessary. [facility] UA w/Reflex Cultureon 2021 Bilirubin, SemiQt,Ur Negative Normal NEG [facility] Comment on above: Performed By: #### U BALJINDER BERUMENX, [facility] #### [facility] [address] [place] [address] Poker Supervisor: Carlos Mckoy MD Blood, Urine 1+ Abnormal NEG [facility] Comment on above: Performed By: #### U ANGELOBALJINDERX, [facility] #### [facility] [address] [place] [address] Poker Supervisor: Carlos Mckoy MD Clarity (U) Clear Normal CLEAR [facility] Comment on above: Performed By: #### U ANGELOBALJINDERX, [facility] #### [facility] [address] [place] [address] Poker Supervisor: Carlos Mckoy MD Color (U) Yellow Normal YEL [facility] Comment on above: Performed By: #### U MICAO, UAX, UHCG #### [facility] [address] [place] [address] Dr. [place], [place] [phone] Poker Supervisor: Carlos Mckoy MD Glucose Ql (U) Negative Normal NEG [facility] Comment on above: Performed By: #### U MICAO, UAX, UHCG #### [facility] [address] [place] [address] Dr. [place], [place] [phone] Poker Supervisor: Carlos Mckoy MD Ketones Ql (U) Negative Normal NEG [facility] Comment on above: Performed By: #### U MICAO, UAX, UHCG #### [facility] [address] [place] [address] Dr. [place], [place] [id number] Poker Supervisor: Carlos Mckoy MD Leukocyte esterase Test strip Ql (U) Negative Normal NEG [facility] Comment on above: Performed By: #### U MICAO, UAX, UHCG #### [address] [place], [place] [phone] Poker Supervisor: Carlos Mckoy MD Nitrite,Ur Negative Normal [facility] Comment on above: Performed By: #### U MICAO, UAX, UHCG #### [address] [place], [place] 0265083 Poker Supervisor: Carlos Mckoy MD PH,Ur 6.5 Normal 5.0-9.0 [facility] Comment on above: Performed By: #### U MICAO, UAX, UHCG #### [facility] [address] [place] [address] Dr. [place], [place] 8039583 Poker Supervisor: Carlos Mckoy MD Protein Ql (U) Negative Normal NEG [facility] Comment on above: Performed By: #### U MICAO, UAX, UHCG #### [facility] [address] [place] [address] Dr. [place], [place] [phone] Poker Supervisor: Carlos Mckoy MD Spec. [place],Ur 1.020 Normal 1.010-1.020 [facility] Comment on above: Performed By: #### U ANGELO, UAX, UHCG #### [facility] [address] [place], [place] 725[address]83 Poker Supervisor: Carlos Mckoy MD Urobilinogen,Ur Normal Normal NORM [facility] Comment on above: Performed By: #### U ANGELO, UAX, CG #### [facility] [address] [place], [place] [address]83 Poker Supervisor: Carlos Mckoy MD US NON OB TRANSVAGINALon [...] Denis Howe MD 06/10/22 Final result Normal [facility] 1. No evidence for torsion. 2. Simple appearing pelvic cysts are favored to be paraovarian, for which follow-up ultrasound in 3-6 months is recommended. RECOMMENDATIONS: 8 cm left paraovarian probable benign cyst. Recommend follow-up pelvic US in 3-6 months. Reference: Radiology 2019 Nov;293(2):[id number] [facility] EXAMINATION: PELVIC ULTRASOUND 06/10/2022 TECHNIQUE: Transabdominal [...] Free Fluid: No evidence of free fluid. [facility] Denis Howe MD - 06/10/2022 EXAMINATION: [...] in 3-6 months. Reference: Radiology 2019 Nov;293(2):[id number] [employer] Work Phone: Radiology Study observation (narrative) [email or web address] [facility] [employer] Work Phone: US NON OB TRANSVAGINALOrdere d By: Denis Howe on 06-10-2022 [employer] [facility] Work Phone: Urinalysis with Reflex to Cu ltureon 06-10-2022 Bilirubin Urine Negative NEGATIVE [facility] Color, UA Yellow Yellow [facility] [employer] Glucose, Ur Negative NEGATIVE [facility] [employer] Interpretation and review of laboratory results Abnormal [facility] Ketones Ql (U) Negative NEGATIVE [facility] Leukocyte esterase Test strip Ql (U) Negative NEGATIVE [facility] Nitrite, Urine Negative NEGATIVE [facility] pH, UA 6.5 5 - 9 [facility] Protein, UA Negative NEGATIVE [facility] Specific [place], UA 1.020 1.01 - 1.02 [facility] Turbidity UA Clear Clear [facility] Urine Hgb 1+ Abnormal NEGATIVE [facility] Urobilinogen, Urine Normal Normal [facility] Urinalysis,Microon 2 Bacteria 1+ Abnormal NONE [facility] Comment on above: Performed By: #### U MICAO, UAX, UHCG #### [facility] [address] [place] [address] Poker Supervisor: Carlos Mckoy MD Epithelial cells LM Ql (Urine sed) 0 TO 2 Normal 0-25 [facility] Comment on above: Performed By: #### U MICAO, UAX, UHCG #### [facility] [address] [place], [place] [address]83 Poker Supervisor: Carlos Mckoy MD Mucus Strands 3+ Abnormal NONE [facility] Comment on above: Performed By: #### U MICAO, UAX, UHCG #### [facility] [address] [place] [address] Poker Supervisor: Carlos Mckoy MD Urine RBC's 0 TO 2 Normal 0-2 [facility] Comment on above: Performed By: #### U MICAO, UAX, UHCG #### [facility] [address] [place], [facility]83 Poker Supervisor: Carlos Mckoy MD Urine WBC's 0 TO 2 Normal 0-5 [facility] Comment on above: Performed By: #### U MICAO, UAX, UHCG #### [facility] [address] [place] [address] Poker Supervisor: Carlos Mckoy MD APTTon 06-29-2020 aPTT Coag (Bld) [Time] 26.5 s Normal 25.0-35.0 Th e [facility] Comment on above: Result Comment: ALL RESULTS [...] THIS PURPOSE. Performed By: #### 5 7307, 38948, 81222 #### [facility] [address] [place] [address], [facility] BASIC METABOLIC PANELon Calcium [Mass/Vol] 9.3 mg/dL Normal 8.6-10.3 [facility] Comment on above: Performed By: #### 1 5, 79280, 54139 #### [facility] [address] [place] [address], [place] Chloride [Moles/Vol] 104 mmol/L Normal 98-107 [facility] Comment on above: Performed By: #### 1 5, 23679, 63182 #### [facility] [address] [place] [address], [place] CO2 [Moles/Vol] 25 mmol/L Normal 21-31 [facility] Comment on above: Performed By: #### 1 5, 99489, 50405 #### [facility] [address] [place] [address], [place] Creatinine [Mass/Vol] 0.71 mg/dL Normal 0.60-1.20 [facility] Comment on above: Performed By: #### 1 54, 52352, 72765 #### [facility] [address] [place] [address], [place] GFR/1.73 sq M predicted among blacks MDRD (S/P/Bld) [Vol rate/Area] mL/min/{1.73_m2} Normal >60 [facility] Comment on above: Performed By: #### 1 54, 87298, 73254 #### [facility] [address] [place] [address], [place] GFR/1.73 sq M predicted among non-blacks MDRD (S/P/Bld) [Vol rate/Area] mL/min/{1.73_m2} Normal >60 [facility] Comment on above: Performed By: #### 1 54, 61356, 59076 #### [facility] [address] [place] [address], [place] Glucose [Mass/Vol] 99 mg/dL Normal 70-100 [facility] Comment on above: Performed By: #### 1 5, 54086, 54825 #### [facility] [address] [place] [address], [facility] Potassium [Moles/Vol] 3.3 mmol/L Low 3.5-5.1 [facility] Comment on above: Performed By: #### 1 54, 19007, 40673 #### [facility] [address] [place] [address], [facility] Sodium [Moles/Vol] 139 mmol/L Normal 136-145 [facility] Comment on above: Performed By: #### 1 54, 28012, 14500 #### [facility] 3000 [facility]. [address] Urea nitrogen [Mass/Vol] 15 mg/dL Normal 7-25 [facility] Comment on above: Performed By: #### 1 54, 50171, 57315 #### [facility] 3000 [facility]. [address] CBC W/DIFFon 06-29-2020 ABS BASOPHILS 0.1 10*3/uL Normal 0.0-0.[address] [facility] Comment on above: Performed By: #### 5 3 #### [facility] 3000 [facility]. [address] ABS IMM GRANS 0.1 10*3/uL Normal 0.0-0.[address] [facility] Comment on above: Performed By: #### 5 0103 #### [facility] [address] [facility]. [address] ABS NEUTROPHILS 5.3 10*3/uL Normal 1.6-7.6 The [facility] Comment on above: Performed By: #### 5 3 #### [facility] [address] [place] [address], [facility] Basophils/100 WBC (Bld) 0.7 % Normal 0.0-1.0 T guillermo [facility] Comment on above: Performed By: #### 5 0103 #### [facility] [address] [place] [address], [facility] Eosinophils (Bld) [#/Vol] 0.2 10*3/uL Normal 0.0-0.5 [facility] Comment on above: Performed By: #### 5 0103 #### [facility] [address] [place] [address], [facility] Eosinophils/100 WBC (Bld) 1.7 % Normal 0.0-6.0 [facility] Comment on above: Performed By: #### 5 0103 #### [facility] 3000 [facility]. [address] Erythrocyte distribution width (RBC) [Ratio] 14.1 % Normal 11.5-15.0 [facility] Comment on above: Performed By: #### 5 0103 #### [facility] [address] Hematocrit (Bld) [Volume fraction] 41.8 % Normal 36.0-45.0 [facility] Comment on above: Performed By: #### 5 0103 #### [facility] [address] [facility] [place] [address], [facility] Hemoglobin (Bld) [Mass/Vol] 14.0 g/dL Normal 12.0-15.0 [facility] Comment on above: Performed By: #### 5 0103 #### [facility] [address] [facility] [place] [address], [facility] IMMATURE GRANS 1.3 % High 0.0-1.0 [facility] Comment on above: Performed By: #### 5 0103 #### [facility] [address] [place] [address], [facility] Lymphocytes (Bld) [#/Vol] 3.7 10*3/uL Normal 1.2-4.0 [facility] Comment on above: Performed By: #### 5 0103 #### [facility] [address] [place] [address], [facility] Lymphocytes/100 WBC (Bld) 34.6 % Normal 20.0-45.0 [facility] Comment on above: Performed By: #### 5 3 #### [facility] [address] [place] [address], [facility] MCH (RBC) [Entitic mass] 28.3 pg Normal 27.0-33.0 [facility] Comment on above: Performed By: #### 5 3 #### [facility] [address] [place] [address], [facility] MCHC (RBC) [Mass/Vol] 33.5 g/dL Normal 32.0-35.0 [facility] Comment on above: Performed By: #### 5 3 #### [facility] [address] [place] [address], [facility] MCV (RBC) [Entitic vol] 84.6 fL Normal 82.0-98.0 T he [facility] Comment on above: Performed By: #### 5 3 #### [facility] [address] [place] [address], [facility] Monocytes (Bld) [#/Vol] 1.3 10*3/uL High 0.1-1.0 [facility] Comment on above: Performed By: #### 5 3 #### [facility] [address] [place] [address], [facility] MONOS 12.1 % High 5.0-12.0 [facility] Comment on above: Performed By: #### 5 3 #### [facility] [address] [place] [address], [facility] Neutrophils/100 WBC (Bld) 49.6 % Normal 40.0-72.0 [facility] Comment on above: Performed By: #### 5 0103 #### [facility] 3000 [facility]. [address] Nucleated RBC/100 WBC (Bld) [Ratio] 0 % Normal 0-0 [facility] Comment on above: Performed By: #### 5 0103 #### [facility] [address] [facility] [place] [address], [facility] PLAT CNT 260 10*3/uL Normal 150-400 [facility] Comment on above: Performed By: #### 5 0103 #### [facility] [address] RBC (Bld) [#/Vol] 4.94 10*6/uL Normal 3.80-5.00 [facility] Comment on above: Performed By: #### 5 0103 #### [facility] [address] WBC (Bld) [#/Vol] 10.70 10*3/uL High 4.00-10.60 [facility] Comment on above: Performed By: #### 5 0103 #### [facility] [address] D DIMER TESTon 06-29-2020 D-DIMER TEST <0.27 Normal 0.01-0.49 [facility] Comment on above: Result Comment: D-Di flip values of less than 0.50 ug/ml (FEU) are considered to be a negative predictor of thrombosis. However, the D-Dimer result should be used in conjunction with pretest probability and should not be used alone to diagnose a thrombotic event. Performed By: #### 1 0055, 95820, 32378 #### [facility] [address] ED TOX PANEL URINEon 020 50 THC Negative Normal NEGATIVE [facility] Comment on above: Performed By: #### 3 1763 #### [facility] [address] [place] [address], [facility] BARBITURATES Negative Normal NEGATIVE [facility] Comment on above: Performed By: #### 3 1763 #### [facility] [address] [place] [address], [facility] Benzodiazepines Ql (U) Negative Normal NEGATIVE Th e [facility] Comment on above: Performed By: #### 3 1763 #### [facility] [address] [place] [address], [facility] Cocaine Ql (U) Negative Normal NEGATIVE [facility] Comment on above: Performed By: #### 3 1763 #### [facility] [address] [place] [address], [facility] Methadone Ql (U) Negative Normal NEGATIVE [facility] Comment on above: Performed By: #### 3 1763 #### [facility] [address] [place] [address], [facility] MONO AMPHET Negative Normal NEGATIVE [facility] Comment on above: Performed By: #### 3 1763 #### [facility] [address] [place] [address], [facility] Opiates Ql (U) Negative Normal NEGATIVE [facility] Comment on above: Performed By: #### 3 1763 #### [facility] [address] [place] [address], [facility] Phencyclidine Ql (U) Negative Normal NEGATIVE [facility] Comment on above: Performed By: #### 3 1763 #### [facility] [address] [place] [address], [facility] PROPOXYPHENE Negative Normal NEGATIVE [facility] Comment on above: Performed By: #### 3 1763 #### [facility] [address] [place] [address], [facility] TRICYCLICS Negative Normal NEGATIVE [facility] Comment on above: Performed By: #### 3 1763 #### [facility] [address] [place] [address], [place] LIVER BATTERYon 06-29-2020 Albumin [Mass/Vol] 3.9 g/dL Normal 3.5-5.7 [facility] Comment on above: Performed By: #### 1 0055, [id number], 04611 #### [facility] [address] [place] [address], [facility] ALKALINE PHOSPH 58 IU/L Normal 34-104 [facility] Comment on above: Performed By: #### 1 0055, 49285, 07188 #### [facility] [address] [place] [address], [facility] ALT [Catalytic activity/Vol] 22 U/L Normal 7-52 [facility] Comment on above: Performed By: #### 1 0055, 60266, 61925 #### [facility] [address] [place] [address], [facility] AST [Catalytic activity/Vol] 25 U/L Normal 13-39 [facility] Comment on above: Performed By: #### 1 0055, 47225, 44503 #### [facility] [address] [place] [address], [place] Bilirubin [Mass/Vol] 0.2 mg/dL Low 0.3-1.0 [facility] Comment on above: Performed By: #### 1 0055, 16248, 53210 #### [facility] [address] [place] [address], [place] Bilirubin.direct [Mass/Vol] 0.0 mg/dL Normal 0.0-0.2 [facility] Comment on above: Performed By: #### 1 0055, 79771, 31675 #### [facility] [address] [facility] [address], [facility] Protein [Mass/Vol] 7.1 g/dL Normal 6.0-8.3 The [facility] Comment on above: Performed By: #### 1 0055, 95546, 65292 #### [facility] [address] [facility] [place] [address], [facility] POC URINE PREGNANCYon 2019 Beta HCG ( test) Ql (U) Negative Normal NEGATIVE [facility] Comment on above: Result Comment: Perf ormed in Emergency Department. Performed By: #### 1 0055, 76232, 05845 #### [facility] [address] [place] [address], [facility] PORTABLE CHEST 1 VIEWon PORTABLE CHEST 1 VIEW [facility] Department of Radiology [address] [place] [address] [id number] Patient Name: LUPE ABRAMS : 1985 Sex: F Age: Race: White Pt. Location: [facility] Patient Status: E Ordered Date: [...] process Electronically signed: Jazmin Ngo. Transcribed by: [email or web address], User Resident: Electronically Signed by: JAZMIN NGO @ 06/29/2020 08:10 PM Normal [facility] Comment on above: Order Comment: R/O I nfiltrates PROTHROMBIN TIMEon 0 INR Coag (PPP) [Relative time] 0.96 {INR} Normal 0.91-1.16 [facility] Comment on above: Result Comment: ACCC P [...] CHEST 1995;[id number]. Performed By: #### 5 7307, 26425, 39046 #### [facility] [address] PT Coag (PPP) [Time] 12.8 s Normal 12.3-14.8 [facility] Comment on above: Result Comment: ALL RESULTS MUST BE INTERPRETED WITH RESPECT TO BLOOD DRAWING ARTIFACT OR DILUTION ERROR OF ANTICOAGULANT AT THE TIME OF SAMPLING. Performed By: #### 5 7307, 27593, 69205 #### [facility] [address] [place] [address], [facility] TROPONIN-Ion 06-29-2020 Troponin I.cardiac [Mass/Vol] 0.01 ng/mL Normal 0.00-0.04 [facility] Comment on above: Result Comment: REFE RENCE RANGES: 0.00 - 0.04 ng/ml NORMAL 0.05 - 0.50 ng/ml INDETERMINATE > 0.50 ng/ml CONSISTENT WITH AN M.I. Performed By: #### 1 0055, 27907, 42985 #### [facility] [address] URINALYSIS REFLEXon 06-29-20 20 Appearance (U) CLOUDY Abnormal CLEAR The [facility] Comment on above: Order Comment: Crite vania for reflexing a culture was not met. Please call the lab at 7668 within 24 hours of collection time if culture is needed Performed By: #### 3 0931 #### [facility] [address] [place] [address], [facility] Bilirubin [Mass/Vol] Negative Normal NEGATIVE [facility] Comment on above: Order Comment: Crite vania for reflexing a culture was not met. Please call the lab at 7668 within 24 hours of collection time if culture is needed Performed By: #### 3 0965 #### [facility] [address] [place] [address], [facility] BLOOD SMALL Abnormal NEGATIVE [facility] Comment on above: Order Comment: Crite vania for reflexing a culture was not met. Please call the lab at 7668 within 24 hours of collection time if culture is needed Performed By: #### 3 0965 #### [facility] [address] Color (U) YELLOW Normal YELLOW [facility] Comment on above: Order Comment: Crite vania for reflexing a culture was not met. Please call the lab at 7668 within 24 hours of collection time if culture is needed Performed By: #### 3 0965 #### [facility] [address] [place] [address], [facility] EPIS MANY Abnormal FEW,OCC,NONE SEEN [facility] Comment on above: Order Comment: Crite vania for reflexing a culture was not met. Please call the lab at 7668 within 24 hours of collection time if culture is needed Performed By: #### 3 0965 #### [facility] [address] [facility] [place] [address], [facility] Glucose [Mass/Vol] Negative Normal NEGATIVE The [facility] Comment on above: Order Comment: Crite vania for reflexing a culture was not met. Please call the lab at 7668 within 24 hours of collection time if culture is needed Performed By: #### 3 0965 #### [facility] [address] [place] [address], [facility] HYALINE CASTS 3 /LPF Abnormal NONE SEEN The [facility] Comment on above: Order Comment: Crite vania for reflexing a culture was not met. Please call the lab at 7668 within 24 hours of collection time if culture is needed Performed By: #### 3 0965 #### [facility] [address] [facility] [address], [facility] KETONE Negative Normal NEGATIVE [facility] Comment on above: Order Comment: Crite vania for reflexing a culture was not met. Please call the lab at 7668 within 24 hours of collection time if culture is needed Performed By: #### 3 0965 #### [facility] [address] [place] [address], [place] LEUK LIDYA TRACE Abnormal NEGATIVE [facility] Comment on above: Order Comment: Crite vania for reflexing a culture was not met. Please call the lab at 7668 within 24 hours of collection time if culture is needed Performed By: #### 3 0965 #### [facility] [address] [place] [address], [facility] MUCUS THREADS MOD Abnormal NONE SEEN The [facility] Comment on above: Order Comment: Crite vania for reflexing a culture was not met. Please call the lab at 7668 within 24 hours of collection time if culture is needed Performed By: #### 3 0965 #### [facility] [address] [facility] [place] [address], [facility] Nitrite Ql (U) Negative Normal NEGATIVE The [facility] Comment on above: Order Comment: Crite vania for reflexing a culture was not met. Please call the lab at 7668 within 24 hours of collection time if culture is needed Performed By: #### 3 0965 #### [facility] [address] [facility] [place] [address], [facility] pH (Bld) 6.0 Normal 5.0-8.0 [facility] Comment on above: Order Comment: Crite vania for reflexing a culture was not met. Please call the lab at 7668 within 24 hours of collection time if culture is needed Performed By: #### 3 0965 #### [facility] [address] [facility] [place] [address], [facility] Protein (U) [Mass/Vol] 30 mg/dL Abnormal NEGATIVE e [facility] Comment on above: Order Comment: Crite vania for reflexing a culture was not met. Please call the lab at 7668 within 24 hours of collection time if culture is needed Performed By: #### 3 0965 #### [facility] [address] [facility] [place] [address], [facility] RBC (U) [#/Vol] 3-5 Abnormal NONE SEEN [facility] Comment on above: Order Comment: Crite vania for reflexing a culture was not met. Please call the lab at 7668 within 24 hours of collection time if culture is needed Performed By: #### 3 0965 #### [facility] [address] SPEC GRAV 1.023 High 1.015-1.020 [facility] Comment on above: Order Comment: Crite vania for reflexing a culture was not met. Please call the lab at 7668 within 24 hours of collection time if culture is needed Performed By: #### 3 0965 #### [facility] [address] [facility] [place] [address], [facility] WBC UA 11-20 Abnormal NONE SEEN [facility] Comment on above: Order Comment: Crite vania for reflexing a culture was not met. Please call the lab at 7668 within 24 hours of collection time if culture is needed Performed By: #### 3 0965 #### [facility] [address] [facility]. [address] MUMPS IGG BLDon 05-07-2020 MUMPS IGG 1.39 Normal [facility] Comment on above: Result Comment: NORM AL RANGES: < OR = 0.9O NEGATIVE ; NO DETECTABLE IgG ANTIBODY TO MUMPS 0.91 - 1.09 EQUIVOCAL; REPEAT TESTING SUGGESTED > OR = 1.10 POSITIVE ; INDICATES PRESENCE OF DETECTABLE IgG ANTIBODY TO MUMPS Performed By: #### 1 0055, 33783, 08956 #### [facility] [address] RUBELLAon 05-07-2020 RUBELLA 2.16 Normal [facility] Comment on above: Result Comment: NORM AL RANGES: < OR = 0.9O NEGATIVE ; NO DETECTABLE IgG ANTIBODY TO RUBELLA 0.91 - 1.09 EQUIVOCAL; REPEAT TESTING SUGGESTED > OR = 1.10 POSITIVE ; INDICATES PRESENCE OF DETECTABLE IgG ANTIBODY TO RUBELLA VIRUS Performed By: #### 1 0055, 21648, 21571 #### [facility] [address] [facility]. [address] RUBEOLA MEASLES IGGon 2019 RUBEO IGG 1.82 Normal [facility] Comment on above: Result Comment: NORM AL RANGES: < OR = 0.9O NEGATIVE ; NO DETECTABLE IgG ANTIBODY TO RUBEOLA 0.91 - 1.09 EQUIVOCAL; REPEAT TESTING SUGGESTED > OR = 1.10 POSITIVE ; INDICATES PRESENCE OF DETECTABLE IgG ANTIBODY TO RUBEOLA Performed By: #### 1 0055, 18296, 23733 #### [facility] [address] TB QUANTIFERON PLUSon 2019 MITOGEN MINUS NIL >10.00 Normal [facility] Comment on above: Performed By: #### 3 1592 #### [facility] [address] NIL 0.02 IU/mL Normal [facility] Comment on above: Performed By: #### 3 1592 #### [facility] [address] TB QUANTIFERON Negative Normal NEGATIVE [facility] Comment on above: Result Comment: Laith tiferon TB Gold Interpretation (IU/mL): NEGATIVE: M. tuberculosis infection not likely. Nil: <=8.0 TB1 Antigen minus Nil (TE6OD-PBJ): <0.35 OR >=0.35; and <25% of Nil value. TB2 Antigen minus Nil (ER7XQ-CZD): <0.35 OR >=0.35; and <25% of Nil [...] (https://www.cdc.gov/tb/publications/guidlines/default.htm Performed By: #### 3 1592 #### [facility] [address] [place] [address], [facility] TB1 AG 0.02 IU/mL Normal [facility] Comment on above: Performed By: #### 3 1592 #### [facility] [address] [place] [address], [facility] TB1 AG MINUS NIL 0.00 IU/mL Normal [facility] Comment on above: Performed By: #### 3 1592 #### [facility] [address] [place] [address], [facility] TB2 AG 0.02 IU/mL Normal [facility] Comment on above: Performed By: #### 3 1592 #### [facility] [address] [place] [address], [facility] TB2 AG MINUS NIL 0.00 IU/mL Normal [facility] Comment on above: Performed By: #### 3 1592 #### [facility] [address] [facility] [place] [address], [facility] Measles IgG-[facility] 8 Measles (Rubeola) IgG Ab-[place] Negative [facility] Comment on above: Result Comment: ---- REFERENCE VALUE Vaccinated: Positive (>=1.1 AI)Unvaccinated: Negative (<=0.8 AI) Performed By: #### C [id number] ####[facility] [place] [address] Measles IgG Ab Index-[place] 0.8 [facility] Comment on above: Result Comment: Test Performed by:[facility] [place] [address] Performed By: #### C [id number] ####[facility] [id number] [place] [address] VZ IgG-[facility] 07-16-2018 Varicella IgG Antibody Index-[place] 0.9 [facility] Comment on above: Result Comment: Test Performed by:[facility] [place] [address] Performed By: #### V ZPG ####[facility] [id number] [place] [address] Varicella-Zoster IgG Antibody-[place] Equivocal Normal [facility] Comment on above: Result Comment: Yeyo mmend follow-up testing in 10-14 days if clinicallyindicated. REFERENCE VALUE Vaccinated: Positive (>=1.1 AI)Unvaccinated: Negative (<=0.8 AI) Performed By: #### V ZPG ####[address] [address] Rubella IgGon 07-14-2018 Rubella IgG Ab Interp Reactive Normal [facility] Comment on above: Result Comment: The presence of detectable IgG-class antibodies indicates immunity to the rubella virus through prior immunization or exposure. Individuals testing reactive (positive) are considered immune to rubella infection.This result was obtained with the Access Rubella IgG EIA. Despite calibration by means of a reference preparation, values obtained with different commercial real estate attorney's assay methods may not be used interchangeably. The magnitude of the reported IgG level CANNOT be correlated to an endpoint titer. Performed By: #### R UB ####[address] [address] Vital Signs Date Time Vital Sign Value Performing Clinician Shay rodríguez 10-09-2023 14:30-0500 Body height 180.3 cm Smith Bao DO Work Phone: [employer] 10-09-2023 14:30-0500 Body mass index (BMI) [Ratio] 50.45 kg/m2 Smith Bao DO [facility] Phone: [facility] 10-09-2023 14:30-0500 Body weight 163.97 kg Smith Bao DO Work Phone: [employer] 10-09-2023 14:30-0500 Diastolic blood pressure 90 mm[Hg] Smith Bao DO Work Phone: [facility] 10-09-2023 14:30-0500 Heart rate 103 /min Smith Bao DO Work Phone: [employer] 10-09-2023 14:30-0500 SaO2% (BldA) [Mass fraction] 98 % Smith Bao DO Work Phone: [facility] [employer] [facility] 10-09-2023 14:30-0500 Systolic blood pressure 142 mm[Hg] Smith Bao DO Work Phone: [facility] 09-20-2022 02:30-0500 Diastolic blood pressure 74 mm[Hg] Johana Sagastume MD Work Phone: [employer] 09-20-2022 02:30-0500 Heart rate 108 /min Johana Sagastume MD Work Phone: [employer] 09-20-2022 02:30-0500 Respiratory rate 24 /min Johana Sagastume MD Work Phone: [employer] 09-20-2022 02:30-0500 Systolic blood pressure 122 mm[Hg] Johana Sagastume MD Work Phone: [employer] 09-20-2022 01:09-0500 Body height 180.3 cm Johana Sagastume MD Work Phone: [employer] 09-20-2022 01:09-0500 Body mass index (BMI) [Ratio] 50.91 kg/m2 Johana Sagastume MD Work Phone: [employer] 09-20-2022 01:09-0500 Body temperature 98.8 [degF] Johana Sagastume MD Work Phone: [employer] 09-20-2022 01:09-0500 Body weight 165.56 kg Johana Sagastume MD Work Phone: [employer] 09-20-2022 01:09-0500 SaO2% (BldA) [Mass fraction] 95 % Johana Sagastume MD Work Phone: [employer] 06-10-2022 15:57-0400 SaO2% (BldA) [Mass fraction] 97 % Neptali Fontenot MD [facility] 06-10-2022 15:12-0400 Diastolic blood pressure 78 mm[Hg] Neptali Fontenot MD Work Phone: [facility] 06-10-2022 15:12-0400 Systolic blood pressure 139 mm[Hg] Neptali Fontenot MD Work Phone: [facility] 06-10-2022 15:11-0400 Body mass index (BMI) [Ratio] 50.91 kg/m2 Neptali Fontenot MD Work Phone: [facility] 06-10-2022 15:11-0400 Body weight 165.56 kg Neptali Fontento MD Work Phone: [facility] 06-10-2022 15:07-0400 Body temperature 98.2 [degF] Neptali Fontenot MD Work Phone: [facility] 06-10-2022 15:07-0400 Heart rate 93 /min Neptali Fontenot MD Work Phone: [facility] 06-10-2022 15:07-0400 Respiratory rate 18 /min Neptali Fontenot MD Work Phone: [facility] En[facility]ters Encounter Date Encounter Type Care Provider Facility Start: 07-04-2024 End: 07-04-2024 ambulatory NEPTALI Leandro FONTENOT [facility] Start: 07-04-2024 Encounter for genera l adult medical examination without abnormal findings [facility] Start: 02-10-2024 End: 02-11-2024 Emergency department patient visit ANA ROSA TATUM [facility] Start: 02-10-2024 End: 02-10-2024 Emergency department patient visit NEPTALI FONTENOT [facility] Start: 10-12-2023 End: 10-12-2023 [facility] Start: 10-09-2023 End: 10-09-2023 Office outpatient visit 15 minutes Smith Mendez DO Work Phone: [facility] Comment on above: Precordial pain (Saira enzo Dx) Start: 10-09-2023 End: 10-09-[address] [facility] Start: 10-08-2023 Telephone encounter Jessica Ferguson [facility] Start: 05-29-2023 End: 05-30-2023 ambulatory [facility] Start: 09-20-2022 End: 09-20-2022 Emergency department patient visit [facility] Start: 09-20-2022 End: 09-20-2022 Emergency department patient visit Johana Sagastume MD Work Phone: [facility] ED Comment on above: Influenza with respi ratory manifestation other than pneumonia (Primary Dx); Influenza A Start: 06-10-2022 End: 06-10-2022 Emergency department patient visit [facility] Start: 06-10-2022 End: 06-10-2022 Emergency department patient visit Neptali Fontenot MD Work Phone: [facility] ED Comment on above: Back strain, initial encounter (Primary Dx); PCOS (polycystic ovarian syndrome) Start: 06-29-2020 End: 06-29-2020 Emergency department patient visit ARTEMIO MCGUIRE Facility:[facility] Start: 07-14-2018 End: 07-15-2018 Patient encounter AMBER RINALDI Facility:[facility] Procedures Date Procedure Procedure Detail [...] DTaP/Tdap/Td vaccine (3 - Td or Tdap) [facility] Start: 02-16-2025 DTaP,Tdap and Td Vaccines (2 - Td or Tdap) DTaP,Tdap and Td Vaccines (2 - Td or Tdap) [facility] Start: 10-09-2024 Adult BMI Screening Adult BMI Screen ing [facility] Start: 10-09-2024 Tobacco Screening Tobacco Screening [facility] Start: 07-15-2024 Adult BMI Screening Adult BMI Screen ing [facility] Start: 07-14-2024 Tobacco Screening Tobacco Screening [facility] Start: 10-09-2023 End: 10-09-2023 Patient encounter procedure 10/09/2023 2:45 PM EST Office Visit [facility] [address] [place], [place] [address] [place] [address] Smith Mendez, DO [address] [place] [address], [address] [place] [address] [facility] Start: 06-12-2023 Adult BMI Follow Up Plan Adult BMI Follow Up Plan [facility] Start: 05-29-2023 Influenza vaccination Influenza Vacc ine [facility] Start: 05-29-2022 Influenza vaccination Flu vaccine (# 1) [facility] Start: 04-28-2022 Influenza vaccination Flu vaccine (# 1) [facility] Start: 01-15-2022 COVID-19 Vaccine (3 - Booster for Pfizer series) COVID-19 Vaccine (3 - Booster for Pfizer series) [facility] Start: 10-12-2021 COVID-19 Vaccine (3 - Booster for Pfizer series) COVID-19 Vaccine (3 - Booster for Pfizer series) [facility] Start: 12-07-2018 Diabetes screen Diabetes screen [facility] Start: 12-07-2013 Screening for malign ant neoplasm of cervix [facility] Start: 12-07-2004 Screening for malign ant neoplasm of cervix Pap smear [facility] Start: 12-07-2001 Hepatitis C screening Hepatitis C sc reen [facility] Start: 12-07-1998 HIV screening HIV screen [facility] Start: 1995 Depression Screen Depression Screen [facility] Start: 1995 Depression Screening Depression Scre [facility] Start: 12-07-1984 Varicella vaccine (1 of 2 - 2-dose childhood series) Varicella vaccine (1 of 2 - 2-dose childhood series) [facility] End: 09-20-2022 Strep A culture, throat Strep A culture, throat Microbiology STAT One Time for 1 Occurrences starting 09/20/2022 until 09/20/2022 [facility] Work Phone: Comment on above: One Time for 1 Occur rences starting 09/20/2022 until 09/20/2022 End: 06-10-2022 US DUP ABD PEL RETRO SCROT LIMITED [facility] [employer] Work Phone: Comment on above: Once for 1 Occurrenc es starting 06/10/2022 until 06/10/2022 Payers Date Payer Category Payer Medicaid [facility] MEDICAID [facility] MEDICAID [id number] 2022-Present [phone] [address] [place] [address] [id number] 2021 Medicaid [id number] 2021 Unknown [id number] 1985 Unknown [id number] [id number] 1985 Unknown [id number] [id number] 1983 Unknown [id number] [id number] 1983 Unknown [id number] 1985 Unknown [id number] [id number] 1983 Unknown [id number] [id number] 1983 Unknown [id number] 1983 Unknown [id number] [id number] 1983 Unknown [id number] [id number] 1983 Unknown [id number] [id number] Unknown [id number] Unknown [id number] Social History Date Type Detail Facility Start: 12-22-2017 End: 10-09-2023 Tobacco smoking status [facility] Never smoked tobacco [facility] Start: 12-22-2017 End: 10-09-2023 Tobacco use and exposure Smokeless tobacco non-user [employer] Phone: Start: 06-10-2022 End: 09-20-2022 Alcohol intake Current drinker of alcohol (finding) [employer] Phone: Start: 1985 Sex Assigned At Not on file [employer] Phone: Start: 05-31-2022 End: 09-20-2022 Exposure to SARS-CoV-2 (event) Not sure [employer] Phone: Start: 07-14-2023 End: 10-09-2023 Alcohol intake Ex-drinker (finding) [employer] Start: 10-11-2020 End: 03-27-2021 [facility] Start: 10-11-2020 End: 03-27-2021 Social connection and isolation panel [facility] Do you belong to any clubs or organizations such as buddhist groups, unions, fraternal or athletic groups, or school groups? No [facility] System Are you now , , , , never or living with a partner? Never [facility] How often to you hav e a drink containing alcohol? Monthly or less [facility] How many standard dr inks containing alcohol do you have on a typical day? 1 or 2 [facility] How often do you hav e 6 or more drinks on 1 occasion? Never [facility] How hard is it for y ou to pay for the very basics like food, housing, medical care, and heating Not hard at all [facility] Start: 1985 Sex [facility]igned At [facility] Start: 04-10-2022 Gender identity Identifies as female gender (finding) [facility] Start: 04-10-2022 Sexual orientation Heterosexual (finding) [facility] Goals Date Patient Goal Desired Activity [...] PCOS (polycystic ovarian syndrome) BMI 50.0-59.9, adult ([facility]) Insulin resistance Hyperinsulinemia Chest pain COVID-19 Pelvic [...] Diagnosis Date Acid reflux Anemia Angina pectoris ([facility]) seen in ER X2- related to COVID; [...] 07/04/2022 Performed by Tal Mendez MD at [facility] DILATION AND CURETTAGE OF UTERUS [...] Friends and Family: Twice a week Attends Anabaptist Services: Never Active Member of Clubs or [...] Fontenot MD Referring Physician: Neptali Fontenot MD [address] [place] [address] documented in this encounter [facility] Note 10-08-2023 Telephone Encounter - Jessica Dixon CMA - 10/08/2023 10:10 AM EST Note Date & Type Note Facility 10-08-2023 Miscellaneous Notes Formattin g of this note might be different from the original. Left message for patient to remind them to bring their most current medication list with them to their appointment. documented in this encounter [facility] Telephone encounter Note 10-08-2023 Telephone Encounter - Jessica Dixon CMA - 10/08/2023 10:10 AM EST Note Date & Type Note Facility 10-08-2023 Telephone encount er Note Left message for patient to remind them to bring their most current medication list with them to their appointment. [facility] Discharge instructions 09-20-2022 Discharge InstructionsAttachments [...] cannot be sent through Care Everywhere.Immunization: Influenza (Japanese)documented in this encounter [facility] Phone: Evaluation note Note Date & Type Note Facility Evaluation note Diagnosis Back strain, initial encounter- Primary PCOS (polycystic ovarian syndrome) Polycystic ovaries documented in this encounter [facility] Phone: Evaluation note Note Date & Type Note Facility Evaluation note Diagnosis Influenza with respiratory manifestation other than pneumonia- Primary Influenza with other respiratory manifestations Influenza A Influenza with other respiratory manifestations documented in this encounter [facility] Phone: Evaluation note Note Date & Type Note Facility Evaluation note Diagnosis Precordial pain- Primary documented in this encounter [facility] Discharge instructions Attachments Note Date & Type Note Facility Hospital Discharge instructions The following attachments cannot be sent through Care Everywhere.Polycystic Ovary Syndrome (Japanese)Back: Strain (Japanese)documented in this encounter [facility] Phone: Instructions Note Date & Type Note Facility Instructions Not on filedocumented in this en counter [facility] Instructions Note Date & Type Note Facility Instructions Not on filedocumented in this en counter [facility] Summary Purpose Family History No Family [...] section and content) DATE CREATED AUTHOR 08/16/2018 [facility] DATE CREATED AUTHOR AUTHOR'S ORGANIZ ATION 07/11/2020 [facility] DATE CREATED AUTHOR AUTHOR'S ORGANIZ ATION 06/01/2023 Salud Araiza [facility] DATE CREATED AUTHOR AUTHOR'S ORGANIZ ATION 07/05/2024 [facility] Reason for Visit (unrecogniz ed section and [...] Care Teams (unrecognized sec tion and content) Implant Polisher Relationship Specialty Start Date End Date Neptali Fontenot MD [address] [place] [address] PCP - General 09/06/13 Implant Polisher Relationship Specialty Start Date End Date Neptali Fontenot MD [address] [place] [address] PCP - General 09/06/13 Implant Polisher Relationship Specialty Start Date End Date Neptali Fontenot MD [address] [place] [address] PCP - General Family Medicine 02/10/19 Implant Polisher Relationship Specialty Start Date End Date Neptali Fontenot MD [address] [place] [address] PCP - General Family Medicine 02/10/19 [...] BE BASED ON THE PRIMARY CLINICAL RECORDS. [facility]. provides no warranty or guarantee of the accuracy or completeness of information in this document.
--- NOTE | 2025-04-08 08:25 | CT_ITS ---
The [address] [address] Patient Name: ARCHANA ABRAMS MRN: [id number] date: 1985 Sex: F Assigned Patient Location: ER Current Patient Location: ER Accession/Order Number: [id number] Exam Date: 04/08/2025 08:50 Report Date: 04/08/2025 08:52 At the request of: AMARIS TAMEZ MD Procedure: CT stroke head/brain wo con CT stroke head/brain wo con 04/08/2025 8:40 AM SIGNS AND SYMPTOMS: Left facial numbness, blurred vision TECHNIQUE:Multi-detector CT axial slices of the brain were obtained without IV contrast. CT was performed with one or more of the following dose reduction techniques: Automated exposure control, adjustment of the mA and/or kV according to patient size, or use of iterative reconstruction technique. COMPARISON: 10/29/2024 FINDINGS: There is no shift of the midline structures, acute intracranial bleeding, mass effects, or evidence of acute ischemia. The ventricular system is normal in size. The brainstem and the cerebellum are unremarkable. The visualized intraorbital contents, the visualized paranasal sinuses, and the infratemporal soft tissues show no acute abnormality. The osseous structures in the skull base and the calvarium show no abnormality. CT/CT stroke head/brain wo con IMPRESSION: Normal noncontrasted CT brain. Impression dictated by: Abhijit Valadez M.D. 04/08/2025 8:52 AM Dictation Location[facility] Electronically authenticated by: [id number] Y Date: 04/08/2025 08:52
--- NOTE | 2025-04-08 08:26 | ECG_ITS ---
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
[2025-04-08 08:37] LABS: Hematocrit 39.4 % (36.0-48.0); Hemoglobin 13.1 g/dL (12.0-16.0); Immature Granulocytes Abs Auto 0.09 10^3/uL (0.00-0.03); Immature Granulocytes Pct Auto 0.7 % (0.0-0.5); Lymphocytes Absolute Auto 4.6 10^3/uL (1.2-3.8); Mean Corpuscular HGB Conc 33.2 g/dL (29.9-35.2); Mean Corpuscular Hemoglobin 28.6 pg (26.7-34.0); Mean Corpuscular Volume 86.0 fL (81.0-99.0); Platelet Count 257 10^3/uL (150-450); Red Blood Count 4.58 10^6/uL (4.20-5.40); White Blood Count 12.3 10^3/uL (4.0-11.0)
[2025-04-08 08:52] LABS: Alanine Aminotransferase 20 U/L (14-59); Albumin Globulin Ratio 0.8; Albumin Level 3.2 g/dL (3.4-5.0); Alkaline Phosphatase 86 U/L (46-116); Anion Gap 11.7; Aspartate Amino Transferase 16 U/L (15-37); Blood Urea Nitrogen 13.0 mg/dL (7.0-18.0); Calcium 8.8 mg/dL (8.5-10.1); Carbon Dioxide 29.3 mmol/L (21.0-32.0); Chloride 106 mmol/L (98-107); Estimated GFR (African America >60 (>=60 mL/min/1.73m^2); Estimated GFR (Non-African Ame >60 (>=60 mL/min/1.73m^2); Globulin 3.8 g/dL; Glucose 115 mg/dL (74-106); Potassium 4.0 mmol/L (3.5-5.1); Sodium 143 mmol/L (136-145); Total Protein 7.0 g/dL (6.4-8.2)
[2025-04-08 08:54] LABS: INR 0.97; Prothrombin Time 10.3 sec (9.0-11.6)
--- NOTE | 2025-04-08 09:01 | CT_ITS ---
[address] [address] Patient Name: ARCHANA ABRAMS MRN: [id number] date: 1985 Sex: F Assigned Patient Location: ER Current Patient Location: ER Accession/Order Number: [id number] Exam Date: 04/08/2025 10:13 Report Date: 04/08/2025 10:19 At the request of: AMARIS TAMEZ MD Procedure: CT angio neck CT angio head, CT angio neck 04/08/2025 9:29 AM SIGNS AND SYMPTOMS: Left facial numbness, blurred vision CONTRAST: 100 mL of intravenous Omnipaque 350 TECHNIQUE: Multi-detector CT angiography axial slices of the head were obtained before and during intravenous administration of IV contrast material. Sagittal, coronal, and 3-D reconstructions were performed and viewed on a separate workstation. CT was performed with one or more of the following dose reduction techniques: Automated exposure control, adjustment of the mA and/or kV according to patient size, or use of iterative reconstruction technique. Stenoses were measured using the NASCET criteria. COMPARISON: Noncontrast CT from the same date. FINDINGS: CTA HEAD: The superior cerebellar arteries, posterior inferior cerebellar arteries, and the basilar artery are within normal limits. The posterior cerebral arteries are unremarkable. The intracranial segments of the internal carotid arteries are within normal limits. There are normal anterior and middle cerebral arteries. Anterior communicating artery is patent. Posterior communicating arteries are present. The deep venous system and dural venous systems appear to be patent. No bony abnormalities are appreciated. CTA NECK: There is a normal three-vessel arch. The subclavian arteries are within normal limits. The vertebral arteries arise from the subclavian arteries and are normal in course and caliber up to the skull base. The common and internal carotid arteries are within normal limits. Visualized lung parenchyma is clear. No acute bony abnormalities are identified. The paraspinous soft tissues are within normal limits. CT/CT angio head IMPRESSION: No evidence of focal stenosis, aneurysmal dilatation, dissection or occlusion. Impression dictated by: Abhijit Valadez M.D. 04/08/2025 10:19 AM Dictation Location: [place] [address] Electronically authenticated by: [id number] Y Date: 04/08/2025 10:19
--- NOTE | 2025-04-08 09:01 | CT_ITS ---
[address] [address] Patient Name: ARCHANA ABRAMS MRN: [id number] date: 1985 Sex: F Assigned Patient Location: ER Current Patient Location: ER Accession/Order Number: [id number] Exam Date: 04/08/2025 10:13 Report Date: 04/08/2025 10:19 At the request of: AMARIS TAMEZ MD Procedure: CT angio neck CT angio head, CT angio neck 04/08/2025 9:29 AM SIGNS AND SYMPTOMS: Left facial numbness, blurred vision CONTRAST: 100 mL of intravenous Omnipaque 350 TECHNIQUE: Multi-detector CT angiography axial slices of the head were obtained before and during intravenous administration of IV contrast material. Sagittal, coronal, and 3-D reconstructions were performed and viewed on a separate workstation. CT was performed with one or more of the following dose reduction techniques: Automated exposure control, adjustment of the mA and/or kV according to patient size, or use of iterative reconstruction technique. Stenoses were measured using the NASCET criteria. COMPARISON: Noncontrast CT from the same date. FINDINGS: CTA HEAD: The superior cerebellar arteries, posterior inferior cerebellar arteries, and the basilar artery are within normal limits. The posterior cerebral arteries are unremarkable. The intracranial segments of the internal carotid arteries are within normal limits. There are normal anterior and middle cerebral arteries. Anterior communicating artery is patent. Posterior communicating arteries are present. The deep venous system and dural venous systems appear to be patent. No bony abnormalities are appreciated. CTA NECK: There is a normal three-vessel arch. The subclavian arteries are within normal limits. The vertebral arteries arise from the subclavian arteries and are normal in course and caliber up to the skull base. The common and internal carotid arteries are within normal limits. Visualized lung parenchyma is clear. No acute bony abnormalities are identified. The paraspinous soft tissues are within normal limits. CT/CT angio neck IMPRESSION: No evidence of focal stenosis, aneurysmal dilatation, dissection or occlusion. Impression dictated by: Abhijit Valadez M.D. 04/08/2025 10:19 AM Dictation Location: [place] [address] Electronically authenticated by: [id number] Y Date: 04/08/2025 10:19
--- NOTE | 2025-04-08 09:03 | ED.NEUROSD1 ---
HPI - Neuro Symptoms/Deficit General Chief Complaint: Neuro Symptoms/Deficit Stated Complaint: FACIAL WEAKNESS Time Seen by Provider: 04/08/25 08:25 Source: patient Mode of arrival: walk-in History of Present Illness HPI Narrative: The patient is a 39-year-old female with no significant known past medical history is coming to the ER after she went to sleep last night at 11 PM she had a little bit headache that according to her was mild that she took some ibuprofen for it it was dull all over the head, associated with no other symptoms that she woke up this morning at 6:15 AM with blurry vision in the left eye that she noted numbness continued in the left side of the face, there was no difficulty swallowing there is no difficulty speaking The patient drove herself to the ER The patient also have no upper or lower extremity weakness she has no history of hypertension or diabetes Related Data Home Medications ?Medication ?Instructions ?Recorded ?Confirmed citalopram 20 mg tablet (Celexa) 20 mg PO DAILY 02/08/25 04/08/25 Allergies Allergy/AdvReac Type Severity Reaction Status Date / Time No Known Drug Allergies Allergy Verified 02/08/25 09:13 Review of Systems ROS Status of ROS 10 or more systems reviewed and unremarkable except as noted in history and below PFSH PFSH Social History Little interest or pleasure in doing things: not at all Feeling down, depressed, or hopeless: not at all Exam Narrative Exam Narrative: Nurses notes and vital signs reviewed and patient is not hypoxic. General: Well-appearing and in no apparent distress. Skin: Warm, dry, no pallor noted. No rash. Head: Normocephalic, atraumatic. Neck: Supple, non-tender. Eye: Pupils are equal, round and EOMI. No scleral icterus. Ears, Nose, Mouth, and Throat: TM are clear, no nasal mucosal hypertrophy. Oral mucosa is moist, no posterior oropharynx erythema, uvula is mid-line Cardiovascular: Regular Rate and Rhythm without murmur, gallop or rub. Respiratory: No accessory muscle use or respiratory distress. Lungs are clear to auscultation, no wheezing, rales or rhonchi Chest Wall: no tenderness Back: No midline thoracic or lumbar vertebral tenderness. No CVA tenderness Musculoskeletal: normal ROM, no calf or popliteal tenderness, no lower extremity edema/swelling GI: Abdomen is soft, non-distended. Normal bowel sounds. No masses appreciated. No tenderness to palpation. No rebound, guarding, or rigidity noted. Neurological: A&O x4. No cranial nerve dysfunction observed. No truncal ataxia. Moves all extremities. Sensation intact. Psychiatric: Cooperative and interactive. Normal mood and affect. Constitutional Vital Signs, click to edit/add: Last Vital Signs Temp 98.2 F 04/08/25 08:19 Pulse 75 04/08/25 10:20 Resp 18 04/08/25 10:20 BP 125/85 04/08/25 10:01 Pulse Ox 97 04/08/25 10:20 O2 Del Method Room Air 04/08/25 08:19 Course Vital Signs Vital signs: Vital Signs Temperature 98.2 F 04/08/25 08:19 Pulse Rate 93 H 04/08/25 08:19 Respiratory Rate 20 04/08/25 08:19 Blood Pressure 143/81 H 04/08/25 08:19 Pulse Oximetry 97 04/08/25 08:19 Oxygen Delivery Method Room Air 04/08/25 08:19 Temperature 98.2 F 04/08/25 08:19 Pulse Rate 75 04/08/25 10:20 Respiratory Rate 18 04/08/25 10:20 Blood Pressure 125/85 04/08/25 10:01 Pulse Oximetry 97 04/08/25 10:20 Oxygen Delivery Method Room Air 04/08/25 08:19 MDM - Neuro Symptoms/Deficit MDM Narrative Medical decision making narrative: The patient EKG showing sinus rhythm with a heart rate of [address] elevation or depression Upon arrival the patient had a complete negative exam except for the numbness and tingling in the left side of the face and her vision was 20/30 in both eyes and the left was 20/80 the right was 20/50 CT of the head showed no acute pathology the patient was provided with Toradol Patient CBC and chemistry showed no acute pathology with a negative test Case discussed with teleneurology stroke team and the plan was to get a CT angio head and neck and proceed from there CT angio head and neck showed no acute pathology The patient was feeling better after initial treatment with Toradol as she does not have any more blurry vision or numbness in the face but she have some numbness in the left left side The patient case was discussed with the teleneurologist and his recommendation was the patient can be discharged with follow-up with her primary care as outpatient this could be secondary to atypical migraine The patient is to follow up with primary care physician in next 2-3 days or to return to the emergency department should any of the signs or symptoms worsen or new symptoms develop. The patient agrees with the following Diagnosis and Treatment plan and the patient will be discharged home. Lab Data Labs: Lab Results 04/08/25 04/08/25 Range/Units 08:25 09:28 WBC 12.3 H (4.0-11.0) 10^3/uL RBC 4.58 (4.20-5.40) 10^6/uL Hgb 13.1 (12.0-16.0) g/dL Hct 39.4 (36.0-48.0) % MCV 86.0 (81.0-99.0) fL MCH 28.6 (26.7-34.0) pg MCHC 33.2 (29.9-35.2) g/dL RDW 13.8 (11.0-15.0) % Plt Count 257 (150-450) 10^3/uL MPV 8.7 L (9.5-13.5) fL Neut % (Auto) 50.7 (43.0-75.0) % Lymph % (Auto) 37.3 (20.5-60.0) % Scott % (Auto) 8.1 (1.7-12.0) % Eos % (Auto) 2.5 (0.9-7.0) % Baso % (Auto) 0.7 (0.2-2.0) % Neut # (Auto) 6.2 (1.4-6.5) 10^3/uL Lymph # (Auto) 4.6 H (1.2-3.8) 10^3/uL Scott # (Auto) 1.0 H (0.3-0.8) 10^3/uL Eos # (Auto) 0.3 (0.0-0.7) 10^3/uL Baso # (Auto) 0.1 (0.0-0.1) 10^3/uL Abs Immat Gran (auto) 0.09 H (0.00-0.03) 10^3/uL Imm/Tot Granulo (auto) 0.7 H (0.0-0.5) % PT 10.3 (9.0-11.6) sec INR 0.97 Sodium 143 (136-145) mmol/L Potassium 4.0 (3.5-5.1) mmol/L Chloride 106 (98-107) mmol/L Carbon Dioxide 29.3 (21.0-32.0) mmol/L Anion Gap 11.7 BUN 13.0 (7.0-18.0) mg/dL Creatinine 0.74 (0.55-1.02) mg/dL Est GFR ( Amer) >60 (>=60 mL/min/1.73m^2) Est GFR (Non-Af Amer) >60 (>=60 mL/min/1.73m^2) BUN/Creatinine Ratio 17.6 Glucose 115 H (74-106) mg/dL Calcium 8.8 (8.5-10.1) mg/dL Total Bilirubin 0.2 (0.2-1.0) mg/dL AST 16 (15-37) U/L ALT 20 (14-59) U/L Alkaline Phosphatase 86 (46-116) U/L Total Protein 7.0 (6.4-8.2) g/dL Albumin 3.2 L (3.4-5.0) g/dL Globulin 3.8 g/dL Albumin/Globulin Ratio 0.8 Serum HCG, Qual Negative (NEGATIVE) Urine Opiates Screen Negative (NEGATIVE) Ur Buprenorphine Scrn Negative (NEGATIVE) Ur Oxycodone Screen Negative (NEGATIVE) Urine Methadone Screen Negative (NEGATIVE) Ur Barbiturates Screen Negative (NEGATIVE) U Tricyclic Antidepress Negative (NEGATIVE) Ur Phencyclidine Scrn Negative (NEGATIVE) Ur Amphetamines Screen Negative (NEGATIVE) U Methamphetamines Scrn Negative (NEGATIVE) U Benzodiazepines Scrn Negative (NEGATIVE) Urine Cocaine Screen Negative (NEGATIVE) U Cannabinoids Screen Negative (NEGATIVE) Ethanol Quant <3 mg/dL Discharge Plan Discharge Chief Complaint: Neuro Symptoms/Deficit Clinical Impression: Atypical migraine Patient Disposition: Home, Self-Care Time of Disposition Decision: 10:41 Condition: Good Prescriptions / Home Meds: No Action citalopram [Celexa] 20 mg tablet 20 mg PO DAILY Print Language: Occitan Instructions: Migraine Headache (ED) Referrals: Steve Zheng MD [Primary Care Provider] - 1 week Discharge Date/Time: 04/08/25 10:50
[2025-04-08] MEDS: KETOROLAC TROMETHAMINE 30 MG/ML VIAL 15 MG IVP (09:12)
[2025-04-08] MEDS: 0.9 % SODIUM CHLORIDE 1,000 ML 1000 ML IV (09:14)
[2025-04-08 10:17] LABS: Cannabinoid Screen Urine NEGATIVE (NEGATIVE); Methamphetamines Screen Urine NEGATIVE (NEGATIVE); Tricyclic Antidepressant Urine NEGATIVE (NEGATIVE)
== END 2025-04-08 10:50 | disposition home or self-care (01) ==
PROVIDERS: Emergency Provider Emergency Medicine; PCP Family Medicine
DX: G43.809 Other migraine, not intractable, without status migrainosus (principal); H53.8 Other visual disturbances; R20.2 Paresthesia of skin
CPT/HCPCS: 36415; 70450; 70496; 70498; 80053; 80307; 80320; 84703; 85025; 85610; 93005; 96374; 99285; J1885; Q9967

== ENCOUNTER 2025-05-19 21:26 | Emergency (ER) | payer BC, OTHER, SELFPAY ==
[2025-05-19 22:58] VITALS: BP 172/101; PULSE 82; TEMP 36.9; O2SAT 97; BMI 53.7
--- OUTSIDE RECORDS SUMMARY | 2025-05-19 23:06 | XMS_ITS | CCD ---
Author Organization [facility] Care Team Providers Care Reservationist Name Role Phone NIMCO AMBER METCALF Unavailable Unavailable ARTEMIO MCGUIRE Admitting Unavailable SELF, REFERRED Primary Care Unavailable SELF, REFERRED Referring Unavailable MATTHEW LYNCH Attending Unavailable Po JAIMES, Neptali A Primary Care Provider [phone] Po JAIMES, Neptali Reeves Primary Care Provider [phone] PO, NEPTALI A Primary Care Unavailable ANTONETTE [...] JAIMES, Neptali A Primary Care Provider [phone] Allergies Allergy Classification Reported Allergen(s) Allergy Type [...] width (RBC) [Ratio] 14.5 % Normal 11.5-15.0 [facility] Comment on above: Performed By: #### C MP, CBC #### [facility] ([id number]) [address], [address] [place] [address] Hematocrit (Bld) [Volume fraction] 38.5 % Normal 35-47 [facility] Comment on above: Performed By: #### C MP, CBC #### [facility] ([id number]) [address], [address] [place] [address] Hemoglobin (Bld) [Mass/Vol] 13.4 g/dL Normal 11.7-15.5 [facility] Comment on above: Performed By: #### C MP, CBC #### [facility] ([id number]) [address], [address] [place] [address] MCH (RBC) [Entitic mass] 29.7 pg Normal 27-34 [facility] Comment on above: Performed By: #### C MP, CBC #### [facility] ([id number]) [address], [address] [place] [address] MCHC (RBC) [Mass/Vol] 34.7 g/dL Normal 32-36 [facility] Comment on above: Performed By: #### C MP, CBC #### [facility] ([id number]) [address], [address] [place] [address] MCV (RBC) [Entitic vol] 86 fL Normal 80-100 P [facility] Comment on above: Performed By: #### C MP, CBC #### [facility] ([id number]) [address] [place] [address] Platelet mean volume (Bld) [Entitic vol] 7.7 fL Normal 7-12 [facility] Comment on above: Performed By: #### C MP, CBC #### [facility] ([id number]) [address], [address] [place] [address] Platelets (Bld) [#/Vol] 222 10*3/uL Normal 150-450 [facility] Comment on above: Performed By: #### C MP, CBC #### [facility] ([id number]) [address], [address] [place] [address] RBC COUNT 4.50 X10E12/L Normal 3.80-5.20 [facility] Comment on above: Performed By: #### C MP, CBC #### [facility] ([id number]) [address], [address] [place] [address] WBC (Bld) [#/Vol] 9.1 10*3/uL Normal 4.0-11.0 [facility] Comment on above: Performed By: #### C MP, CBC #### [facility] ([id number]) [address], [address] [place] [address] COMPREHENSIVE METABOLIC PANE Vitor 07-04-2024 Albumin [Mass/Vol] 3.8 g/dL Normal 3.2-5.3 [facility] Comment on above: Performed By: #### C MP, CBC #### [facility] ([id number]) [address], [address] [place] [address] ALP [Catalytic activity/Vol] 62 U/L Normal 39-130 [facility] Comment on above: Performed By: #### C MP, CBC #### [facility] ([id number]) [address], [address] [place] [address] ALT [Catalytic activity/Vol] 14 U/L Normal 0-31 [facility] Comment on above: Performed By: #### C MP, CBC #### [facility] ([id number]) [address], [address] [place] [address] Anion gap [Moles/Vol] 11 mmol/L Normal 5-15 [facility] Comment on above: Performed By: #### C MP, CBC #### [facility] ([id number]) [address], [address] [place] [address] AST [Catalytic activity/Vol] 14 U/L Normal 0-41 [facility] Comment on above: Performed By: #### C MP, CBC #### [facility] ([id number]) [address] [place] [address] Bilirubin [Mass/Vol] 0.4 mg/dL Normal 0.3-1.2 [facility] Comment on above: Performed By: #### C CAPRICE, CBC #### [facility] ([id number]) [address] [place] [address] Calcium [Mass/Vol] 8.6 mg/dL Normal 8.5-10.5 [facility] Comment on above: Performed By: #### C MP, CBC #### [facility] ([id number]) [address] [place] [address] Chloride [Moles/Vol] 105 mmol/L Normal 98-109 [facility] Comment on above: Performed By: #### C MP, CBC #### [facility] ([id number]) [address], [address] [place] [address] CO2 [Moles/Vol] 24 mmol/L Normal 22-32 [facility] Comment on above: Performed By: #### C MP, CBC #### [facility] ([id number]) [address] [place] [address] Creatinine [Mass/Vol] 0.51 mg/dL Normal 0.40-1.00 [facility] Comment on above: Result Comment: METH OD TRACEABLE TO IDMS STANDARD Performed By: #### C MP, CBC #### [facility] ([id number]) [address] [place] [address] eGFR (CKD-EPI) NON-RACE DEPENDENT >90 Normal >59 [facility] Comment on above: Result Comment: Reported eGFR is based on the CKD-EPI 2020 equation that does not use a race coefficient. Performed By: #### C MP, CBC #### [facility] ([id number]) [address], [address] [place] [address] Glucose [Mass/Vol] 97 mg/dL Normal 65-99 [facility] Comment on above: Performed By: #### C MP, CBC #### [facility] ([id number]) [address] [address] [place] [address] Potassium [Moles/Vol] 3.5 mmol/L Normal 3.5-5.0 [facility] Comment on above: Performed By: #### C MP, CBC #### [facility] ([id number]) [address], [address] [place] [address] Protein [Mass/Vol] 6.9 g/dL Normal 6.0-8.0 [facility] Comment on above: Performed By: #### C MP, CBC #### [facility] ([id number]) [address] [address] [place] [address] Sodium [Moles/Vol] 140 mmol/L Normal 134-146 [facility] Comment on above: Performed By: #### C MP, CBC #### [facility] ([id number]) [address], [address] [place] [address] Urea nitrogen [Mass/Vol] 8 mg/dL Normal 5-23 [facility] Comment on above: Performed By: #### C MP, CBC #### [facility] ([id number]) [address] [place] [address] URINALYSISon 07-04-2024 Bilirubin Ql (U) Negative Normal NEG [facility] Comment on above: Performed By: #### U A #### [facility] ([id number]) [address], [address] [place] [address] BLOOD/HGB Small Abnormal NEG [facility] Comment on above: Performed By: #### U A #### [facility] ([id number]) [address] [place] [address] Color (U) YELLOW Normal YELLOW [facility] Comment on above: Performed By: #### U A #### [facility] ([id number]) [address] [place] [address] Glucose Ql (U) Negative Normal NEG [facility] Comment on above: Performed By: #### U A #### [facility] ([id number]) [address] [place] [address] Ketones Ql (U) Negative Normal NEG [facility] Comment on above: Performed By: #### U A #### [facility] ([id number]) [address], [address] [place] [address] Leukocyte esterase Test strip Ql (U) Negative Normal NEG [facility] Comment on above: Performed By: #### U A #### [facility] ([id number]) [address] [place] [address] MUCOUS PRESENT Abnormal NONE [facility] Comment on above: Performed By: #### U A #### [facility] ([id number]) [address] [place] [address] Nitrite Ql (U) Negative Normal NEG [facility] Comment on above: Performed By: #### U A #### [facility] ([id number]) [address] [place] [address] pH (U) 6.5 [pH] Normal 5.0-8.5 [facility] Comment on above: Performed By: #### U A #### [facility] ([id number]) [address] [place] [address] Protein Ql (U) Trace Abnormal NEG [facility] Comment on above: Performed By: #### U A #### [facility] ([id number]) [address] [place] [address] R.B.CELLS 3 /hpf Normal 0-5 [facility] Comment on above: Performed By: #### U A #### [facility] ([id number]) [address] [place] [address] Specific gravity (U) [Rel density] 1.017 Normal 1.003-1.035 [facility] Comment on above: Performed By: #### U A #### [facility] ([id number]) [address] [place] [address] SQUAMOUS EPITHELIUM 4 /hpf Normal 0-5 [facility] Comment on above: Performed By: #### U A #### [facility] ([id number]) [address] [place] [address] TURBIDITY CLEAR Normal CLEAR [facility] Comment on above: Performed By: #### U A #### [facility] ([id number]) [address] [place] [address] Urobilinogen (U) [Mass/Vol] mg/dL Normal <1.1 [facility] Comment on above: Performed By: #### U A #### [facility] ([id number]) [address] [place] [address] W.B.CELLS 3 /hpf Normal 0-5 [facility] Comment on above: Performed By: #### U A #### [facility] ([id number]) [address] [address] [place] [address] XR ANKLE RT MIN 3 VWSon 01-26 XR ANKLE RT MIN 3 VWS XR ANKLE RT MIN 3 VWS . Right ankle: HISTORY: Ankle pain post injury. 3 views the right ankle were obtained. Calcaneal spurring noted. Large enthesophyte present at the Achilles insertion. Ankle mortise is intact. IMPRESSION: No acute findings. 4 Finalized by Rubin Junior MD on 02/10/2024 1:50 PM Normal [facility] XR FOOT RT MIN 3 VWSon 02-09 [...] Saldana MD on 02/10/2024 1:57 PM Normal [facility] XR CHEST 2 VWSon 10-12-2023 XR CHEST [...] Borden MD on 10/12/2023 3:31 PM Normal [facility] Measles (Rubeola) Imon 06-01 Measles (Rubeola) Im 1.74 Normal >1.09 [facility] Comment on above: Result Comment: Interpretation: IMMUNE Reference Range: <0.91 Not Immune 0.91-1.09 Equivocal >1.09 Immune Performed By: #### C OVRB #### [facility] [address] [place] [address] [place] [address] Adult Crossing Guard: Carlos Mckoy MD Mumps,Immun,Abon 06-01-2023 Mumps,Immun,Ab 2.34 Normal >1.09 [facility] Comment on above: Result Comment: Interpretation: IMMUNE Reference Range: <0.91 Not Immune 0.91-1.09 Equivocal >1.09 Immune Performed By: #### C OVRB #### [address] [place], [place] [address] Adult Crossing Guard: Carlos Mckoy MD VZ Immunityon 06-01-2023 VZ Immunity 1.21 Normal >1.09 [facility] Comment on above: Result Comment: Interpretation: IMMUNE Reference Range: <0.91 Not Immune 0.91-1.09 Equivocal >1.09 Immune Performed By: #### C OVRB #### [address] [place] [address] Adult Crossing Guard: Carlos Mckoy MD Hep B Surf Abon 05-30-2023 Hep B Surf Ab 213.00 mIU/mL High <10 [facility] Comment on above: Result Comment: REFERENCE RANGE: [...] infection. Performed By: #### C OVRB #### [facility] [address] [place] [address] Adult Crossing Guard: Carlos Mckoy MD Rubella Ab, IgGon 05-30-2023 Rubella Ab, IgG >500.0 Normal [facility] Comment on above: Result Comment: REFERENCE RANGE: <5.0 NON-REACTIVE (non-immune) 5.0 TO 9.9 EQUIVOCAL >=10.0 REACTIVE (immune) Performed By: #### C OVRB #### [facility] [address] [place] [address] Adult Crossing Guard: Carlos Mckoy MD COVID-19, Rapidon 09-20-2022 SARS-CoV-2 (COVID-19) RNA JEAN MARIE+probe Ql (Unsp spec) Not detected Not Detected [facility] Comment on above: Rapid NAAT: The specimen [...] management decisions. Fact sheet for Healthcare Providers: https://www.fda.gov/media/887118/download Fact sheet for Patients: https://www.fda.gov/media/305405/download Methodology: Isothermal Nucleic Acid Amplification Specimen Description .NASOPHARYNGEAL SWAB [facility] Flu A/B Ag Detectionon 09-20 Flu A Ag Detection Positive Abnormal NEG [facility] Comment on above: Result Comment: for Influenza A Antigen Performed By: #### F LUABA #### [facility] [address] [place] [address] Adult Crossing Guard: Carlos Mckoy MD Flu B Ag Detection Negative Normal NEG [facility] Comment on above: Result Comment: for Influenza B Antigen. Performed By: #### F LUABA #### [facility] [address] [place] [address] Adult Crossing Guard: Carlos Mckoy MD Rapid influenza A/B antigens on 09-20-2022 Flu A Antigen Positive Abnormal NEGATIVE [facility] Comment on above: for Influenza A Anti gen Flu B Antigen Negative NEGATIVE [facility] Comment on above: for Influenza B Anti gen. Interpretation and review of laboratory results Abnormal [facility] [id number] 09-20-2022 SARS-CoV-2 (COVID-19) RNA JEAN MARIE+probe Ql (Unsp spec) Not detected Normal NOTDET [facility] Comment on above: Result Comment: Rapid NAAT: [...] management decisions. Fact sheet for Healthcare Providers: https://www.fda.gov/media/354595/download Fact sheet for Patients: https://www.fda.gov/media/563596/download Methodology: Isothermal Nucleic Acid Amplification Performed By: #### C OVRB #### [facility] [address] [place] [address] Adult Crossing Guard: Carlos Mckoy MD Strep Gr A Direct Agon 09-20 Strep Gr A Direct Ag Negative Normal NEG [facility] Comment on above: Result Comment: Rapi d Strep A negative. A negative Rapid Group A Strep Screen result does not rule out the possibility of Group A Streptococci in the specimen. A Group A Strep DNA test is available upon request. Performed By: #### C OVRB #### [facility] [address] [place] [address] Adult Crossing Guard: Cralos Mckoy MD Source .THROAT SWAB Normal [facility] Comment on above: Performed By: #### C OVRB #### [facility] [address] [place] [address] Adult Crossing Guard: Carlos Mckoy MD Strep Screen Group A Throato n 09-20-2022 S. pyogenes Ag Ql (Throat) Negative NEGATIVE [facility] Comment on above: Rapid Strep A negati ve. A negative Rapid Group A Strep Screen result does not rule out the possibility of Group A Streptococci in the specimen. A Group A Strep DNA test is available upon request. Source .THROAT SWAB [facility] XR CHEST (SINGLE VIEW FRONTA L)on [...] Denis Brannon MD 09/20/22 Final result Normal [facility] No acute cardiopulmonary abnormality. [facility] RIS CONSOLIDATED EXAMINATION: ONE XRAY VIEW OF THE CHEST 09/20/2022 1:34 am COMPARISON: 12/22/2017 HISTORY: ORDERING SYSTEM PROVIDED HISTORY: sob cough TECHNOLOGIST PROVIDED HISTORY: sob cough FINDINGS: The lungs are clear. The cardiac and mediastinal contours are normal. There is no pleural effusion or pneumothorax. No acute osseous abnormality is identified. [facility] RIS CONSOLIDATED Denis Brannon MD - 09/20/2022 EXAMINATION: ONE XRAY VIEW OF THE CHEST 09/20/2022 1:34 am COMPARISON: 12/22/2017 HISTORY: ORDERING SYSTEM PROVIDED HISTORY: sob cough TECHNOLOGIST PROVIDED HISTORY: sob cough FINDINGS: The lungs are clear. The cardiac and mediastinal contours are normal. There is no pleural effusion or pneumothorax. No acute osseous abnormality is identified. IMPRESSION: No acute cardiopulmonary abnormality. [employer] Phone: Radiology Study observation (narrative) [employer] Phone: XR CHEST (SINGLE VIEW FRONTA L)Ordered By: Denis Brannon on 09-20-2022 [employer] Phone: US DUP ABD PEL RETRO SCROT [...] US in 3-6 months. Reference: Radiology 2019 Jul;293(1):[id number] Interpreted by: Denis Howe MD Signed by: Denis Howe MD 06/11/22 Final result Normal [facility] Basic Metabolic Panelon 05-29 Anion gap [Moles/Vol] 9 mmol/L 9 - 17 mmol/L [facility] Calcium [Mass/Vol] 9.9 mg/dL 8.6 - 10. 4 mg/dL [facility] Chloride [Moles/Vol] 102 mmol/L 98 - 10 7 mmol/L [facility] CO2 [Moles/Vol] 27 mmol/L 20 - 31 mmol/L [facility] Creatinine [Mass/Vol] 0.49 mg/dL Low 0.5 - 0.9 mg/dL [facility] GFR >60 60 - PI NF mL/min [facility] GFR Non- >60 60 - PINF mL/min [facility] Glucose [Mass/Vol] 101 mg/dL High 70 - 99 mg/dL [facility] Interpretation and review of laboratory results Abnormal [facility] Potassium [Moles/Vol] 4.0 mmol/L 3.7 - 5.3 mmol/L [facility] Sodium [Moles/Vol] 138 mmol/L 135 - 144 mmol/L [facility] Urea nitrogen (BldV) [Mass/Vol] 8 mg/dL 6 - 20 mg/dL [facility] Urea nitrogen/Creatinine (Bld) [Mass ratio] 16 9 - 20 [facility] Basic Metabolic Profon 06-10 (cont.) Normal [facility] Comment on above: Result Comment: Aver age GFR for 30-39 years old: 107 mL/min/1.73sq m Chronic Kidney Disease: <60 mL/min/1.73sq m Kidney failure: <15 mL/min/1.73sq m eGFR calculated using average adult body mass. Additional eGFR calculator available at: http://www.Lifeblob.com/multiple_crcl_2012.htm Performed By: #### C OVRB #### [facility] [address] [place], [place] [address] Adult Crossing Guard: Carlos Mckoy MD Anion gap [Moles/Vol] 9 mmol/L Normal 9-17 [facility] Comment on above: Performed By: #### C OVRB #### [facility] [address] [place] [address] Adult Crossing Guard: Carlos Mckoy MD BUN/CRE Ratio 16 Normal 9-20 [facility] Comment on above: Performed By: #### C OVRB #### [address] [place] [address] Adult Crossing Guard: Carlos Mckoy MD Calcium [Mass/Vol] 9.9 mg/dL Normal 8.6-10.4 [facility] Comment on above: Performed By: #### C OVRB #### [address] [place] [address] Adult Crossing Guard: Carlos Mckoy MD Chloride [Moles/Vol] 102 mmol/L Normal 98-107 [facility] Comment on above: Performed By: #### C OVRB #### [facility] [address] [place] [address] [place] [address] Adult Crossing Guard: Carlos Mckoy MD CO2 [Moles/Vol] 27 mmol/L Normal 20-31 [facility] Comment on above: Performed By: #### C OVRB #### [facility] [address] [place] [address] [address] [place], [place] [address] Adult Crossing Guard: Carlos Mckoy MD Creatinine [Mass/Vol] 0.49 mg/dL Low 0.50-0.90 [facility] Comment on above: Performed By: #### C OVRB #### [facility] [address] [place] [address] [place] [place], [place] [address] Adult Crossing Guard: Carlos Mckoy MD GFR, Amer >60 Normal >60 [facility] Comment on above: Performed By: #### C OVRB #### [facility] [address] [place], [place] [address] Adult Crossing Guard: Carlos Mckoy MD GFR,non Amer >60 Normal >60 [facility] Comment on above: Performed By: #### C OVRB #### [facility] [address] [place] [id number] Adult Crossing Guard: Carlos Mckoy MD Glucose [Mass/Vol] 101 mg/dL High 70-99 [facility] Comment on above: Performed By: #### C OVRB #### [facility] [address] [place] [address] [place] [place], [place] [address] Adult Crossing Guard: Carlos Mckoy MD Potassium [Moles/Vol] 4.0 mmol/L Normal 3.7-5.3 [facility] Comment on above: Performed By: #### C OVRB #### [facility] [address] [place] [address] [place] [place], [place] [address] Adult Crossing Guard: Carlos Mckoy MD Sodium [Moles/Vol] 138 mmol/L Normal 135-144 [facility] Comment on above: Performed By: #### C OVRB #### [facility] [address] [place], [place] [address] Adult Crossing Guard: Carlos Mckoy MD Staging: Normal [facility] Comment on above: Result Comment: Stag e 1: Some kidney damage normal GFR Stage 2: Mild kidney damage GFR 60-89 Stage 3: Moderate kidney damage GFR 30-59 Stage 4: Severe kidney damage GFR 15-29 Stage 5: Severe kidney damage GFR <15 ESRD - chronic treatment by dialysis or transplant Performed By: #### C OVRB #### [facility] [address] [place] [id number] Adult Crossing Guard: Carlos Mckoy MD Urea nitrogen [Mass/Vol] 8 mg/dL Normal 6-20 [facility] Comment on above: Performed By: #### C OVRB #### [facility] [address] [place] [address] Adult Crossing Guard: Carlos Mckoy MD CBC with Auto Differentialon 06-10-2022 Absolute Eos # 0.40 [place] [facility] Absolute Immature Granulocyte 0.12 [facility] Absolute Lymph # 3.13 [facility] Absolute Potter # 1.08 [facility] Basophils (Bld) [#/Vol] 0.07 10*3/uL [facility] Basophils/100 WBC (Bld) 1 % 0 - 2 % B ON [facility] Eosinophils/100 WBC (Bld) 3 % 1 - 4 % [facility] Hematocrit (Bld) [Volume fraction] 40.2 % 36.3 - 47.1 % [facility] Hemoglobin (Bld) [Mass/Vol] 13.2 g/dL 11.9 - 15.1 g/dL [facility] Immature granulocytes/100 WBC (Bld) 1 % High 0 [facility] Interpretation and review of laboratory results Abnormal [facility] Lymphocytes/100 WBC (Bld) 25 % 24 - 43 % [facility] MCH (RBC) [Entitic mass] 28.6 pg 25.2 - 33.5 pg [facility] MCHC (RBC) [Mass/Vol] 32.8 g/dL 28.4 - 34.8 g/dL [facility] MCV (RBC) [Entitic vol] 87.0 fL 82.6 - 102.9 fL [facility] Monocytes/100 WBC (Bld) 9 % 3 - 12 % B ON [facility] NRBC Automated 0.0 0.0 per 100 WBC [facility] Platelet distribution width (Bld) [Ratio] 13.7 % 11.8 - 14.4 % [facility] Platelet mean volume (Bld) [Entitic vol] 8.7 fL 8.1 - 13.5 fL [facility] Platelets (Bld) [#/Vol] 255 10*3/uL [facility] RBC (Bld) [#/Vol] 4.62 10*6/uL 3.95 - 5.1 1 m/uL [facility] Segmented neutrophils/100 WBC (Bld) 61 % 36 - 65 % [facility] Segs Absolute 7.56 [facility] WBC (Bld) [#/Vol] 12.4 10*3/uL High [facility] CBC with Diffon 06-10-2022 Abs. Basophil 0.07 k/uL Normal 0.00-0.20 [facility] Comment on above: Performed By: #### C DP, BMP #### [facility] [address] [place] [address] [place] [place] [id number] Adult Crossing Guard: Carlos Mckoy MD Abs.Imm.Granulocyte 0.12 k/uL Normal 0.00-0.30 [facility] Comment on above: Performed By: #### C DP, BMP #### [facility] [address] [place], [facility] Adult Crossing Guard: Carlos Mckoy MD Abs.Neutrophil (Seg) 7.56 k/uL Normal 1.50-8.10 [facility] Comment on above: Performed By: #### C DP, BMP #### [address] [place], [facility] Adult Crossing Guard: Carlos Mckoy MD Basophils/100 WBC (Bld) 1 % Normal 0-2 [facility] Comment on above: Performed By: #### C DP, BMP #### [facility] [address] [place] [address] Adult Crossing Guard: Carlos Mckoy MD Eosinophils (Bld) [#/Vol] 0.40 10*3/uL Normal 0.00-0.44 [facility] Comment on above: Performed By: #### C DP, BMP #### [facility] [address] [place] [address] Dr. [place], [facility] Adult Crossing Guard: Carlos Mckoy MD Eosinophils/100 WBC (Bld) 3 % Normal 1-4 [facility] Comment on above: Performed By: #### C DP, BMP #### [address] [place], [facility]83 Adult Crossing Guard: Carlos Mckoy MD Erythrocyte distribution width (RBC) [Ratio] 13.7 % Normal 11.8-14.4 [facility] Comment on above: Performed By: #### C DP, BMP #### [address] [place], [facility]83 Adult Crossing Guard: Carlos Mckoy MD Hematocrit (Bld) [Volume fraction] 40.2 % Normal 36.3-47.1 [facility] Comment on above: Performed By: #### C DP, BMP #### [address] [place], [facility]83 Adult Crossing Guard: Carlos Mckoy MD Hemoglobin (Bld) [Mass/Vol] 13.2 g/dL Normal 11.9-15.1 [facility] Comment on above: Performed By: #### C DP, BMP #### [address] [place], [facility]83 Adult Crossing Guard: Carlos Mckoy MD Immature granulocytes/100 WBC (Bld) 1 % High 0 [facility] Comment on above: Performed By: #### C DP, BMP #### [address] [place], [facility]83 Adult Crossing Guard: Carlos Mckoy MD Lymphocytes (Bld) [#/Vol] 3.13 10*3/uL Normal 1.10-3.70 [facility] Comment on above: Performed By: #### C DP, BMP #### [address] [place], [facility]83 Adult Crossing Guard: Carlos Mckoy MD Lymphocytes/100 WBC (Bld) 25 % Normal 24-43 [facility] Comment on above: Performed By: #### C DP, BMP #### [facility] [address] [place] [address] Adult Crossing Guard: Carlos Mckoy MD MCH (RBC) [Entitic mass] 28.6 pg Normal 25.2-33.5 [facility] Comment on above: Performed By: #### C DP, BMP #### [facility] [address] [place] [address] Adult Crossing Guard: Carlos Mckoy MD MCHC (RBC) [Mass/Vol] 32.8 g/dL Normal 28.4-34.8 [facility] Comment on above: Performed By: #### C DP, BMP #### [address] [place] [address] Adult Crossing Guard: Carlos Mckoy MD MCV (RBC) [Entitic vol] 87.0 fL Normal 82.6-102.9 [facility] Comment on above: Performed By: #### C DP, BMP #### [address] [place] [address] Adult Crossing Guard: Carlos Mckoy MD Monocytes (Bld) [#/Vol] 1.08 10*3/uL Normal 0.10-1.20 [facility] Comment on above: Performed By: #### C DP, BMP #### [facility] [address] [place] [address] Adult Crossing Guard: Carlos Mckoy MD Monocytes/100 WBC (Bld) 9 % Normal 3-12 M [facility] Comment on above: Performed By: #### C DP, BMP #### [facility] [address] [place] [address] Adult Crossing Guard: Carlos Mckoy MD Neutrophil (Seg) 61 % Normal 36-65 [facility] Comment on above: Performed By: #### C DP, BMP #### [address] [place], [place] [id number] Adult Crossing Guard: Carlos Mckoy MD NRBC Automated 0.0 per 100 WBC Normal 0.0 [facility] Comment on above: Performed By: #### C DP, BMP #### [address] [place], [facility]83 Adult Crossing Guard: Carlos Mckoy MD Platelet mean volume (Bld) [Entitic vol] 8.7 fL Normal 8.1-13.5 [facility] Comment on above: Performed By: #### C DP, BMP #### [address] [place], [facility]83 Adult Crossing Guard: Carlos Mckoy MD Platelets (Bld) [#/Vol] 255 10*3/uL Normal 138-453 [facility] Comment on above: Performed By: #### C DP, BMP #### [address] [place], [place] [id number] Adult Crossing Guard: Carlos Mckoy MD RBC (Bld) [#/Vol] 4.62 10*6/uL Normal 3.95-5.11 [facility] Comment on above: Performed By: #### C DP, BMP #### [address] [place], [place] [id number] Adult Crossing Guard: Carlos Mckoy MD WBC (Bld) [#/Vol] 12.4 10*3/uL High 3.5-11.3 [facility] Comment on above: Performed By: #### C DP, BMP #### [address] [place] [address] Adult Crossing Guard: Carlos Mckoy MD CT ABDOMEN PELVIS W [...] Cornell Stearns MD 06/10/22 Final result Normal [facility] CT ABDOMEN PELVIS W IV CONTR AST [...] from December 2014. Hepatic steatosis with hepatomegaly. [facility]: CT OF THE ABDOMEN AND [...] compared to the previous exam from 2014. [facility] RIS CONSOLIDATED Cornell Stearns MD - 06/10/2022 [...] 2014. Hepatic steatosis with hepatomegaly. TAWNY ODELL [facility] Work Phone: Radiology Study observation (narrative) TAWNY LOPEZ [facility] [employer] Work Phone: CT ABDOMEN PELVIS W IV CONTR AST Additional Contrast? NoneOrdered By: Cornell Stearns on 06-10-2022 [facility] Work Phone: HCG, ,Urineon 06-10 Beta HCG ( test) Ql (U) Negative Normal NEG [facility] Comment on above: Result Comment: Spec imens with hCG levels near the threshold of the test (25 mIU/mL) may give a negative or indeterminate result. In such cases, another test should be performed with a new specimen in 48-72 hours. If early is suspected clinically in this setting, correlation with quantitative serum b-hCG level is suggested. [facility] [employer] has confirmed the use of plasma for this test. This has not been cleared or approved by the U.S. Food and Drug Administration. The FDA has determined that such clearance is not necessary. Performed By: #### U MICAO, UAX, [facility] #### [facility] [address] [place] [address] [place] [address] Adult Crossing Guard: Carlos Mckoy MD Laboratory - Chemistry and C hemistry - challengeon 06-10-2022 GFR/1.73 sq M.predicted MDRD (S/P/Bld) [Vol rate/Area] [facility] Comment on above: Average GFR for 30-3 9 years old: 107 mL/min/1.73sq m Chronic Kidney Disease: <60 mL/min/1.73sq m Kidney failure: <15 mL/min/1.73sq m eGFR calculated using average adult body mass. Additional eGFR calculator available at: http://[email or web address]/multiple_crcl_2012.htm Stage 1: Some kidney damage normal GFR Stage 2: Mild kidney damage GFR 60-89 Stage 3: Moderate kidney damage GFR 30-59 Stage 4: Severe kidney damage GFR 15-29 Stage 5: Severe kidney damage GFR <15 ESRD - chronic treatment by dialysis or transplant Microscopic Urinalysison Bacteria, UA 1+ Abnormal None [facility] Epithelial Cells UA 0 TO 2 [facility] Interpretation and review of laboratory results Abnormal [facility] Mucus, UA 3+ Abnormal None [facility] RBC, UA 0 TO 2 [facility] WBC, UA 0 TO 2 [facility] , Urineon 2 Beta HCG ( test) Ql (U) Negative NEGATIVE [facility] Comment on above: Specimens with hCG l evels near the threshold of the test (25 mIU/mL) may give a negative or indeterminate result. In such cases, another test should be performed with a new specimen in 48-72 hours. If early is suspected clinically in this setting, correlation with quantitative serum b-hCG level is suggested. [facility] has confirmed the use of plasma for this test. This has not been cleared or approved by the U.S. Food and Drug Administration. The FDA has determined that such clearance is not necessary. [facility] UA w/Reflex Cultureon 2021 Bilirubin, SemiQt,Ur Negative Normal NEG [facility] Comment on above: Performed By: #### U BALJINDER BERUEMNX, [facility] #### [facility] [address] [place] [address] Adult Crossing Guard: Carlos Mckoy MD Blood, Urine 1+ Abnormal NEG [facility] Comment on above: Performed By: #### U ANGELOBALJINDERX, [facility] #### [facility] [address] [place] [address] Adult Crossing Guard: Carlos Mckoy MD Clarity (U) Clear Normal CLEAR [facility] Comment on above: Performed By: #### U ANGELOBALJINDERX, [facility] #### [facility] [address] [place] [address] Adult Crossing Guard: Carlos Mckoy MD Color (U) Yellow Normal YEL [facility] Comment on above: Performed By: #### U MICAO, UAX, UHCG #### [facility] [address] [place] [address] Dr. [place], [place] [id number] Adult Crossing Guard: Carlos Mckoy MD Glucose Ql (U) Negative Normal NEG [facility] Comment on above: Performed By: #### U MICAO, UAX, UHCG #### [facility] [address] [place] [address] Dr. [place], [place] [id number] Adult Crossing Guard: Carlos Mckoy MD Ketones Ql (U) Negative Normal NEG [facility] Comment on above: Performed By: #### U MICAO, UAX, UHCG #### [facility] [address] [place] [address] Dr. [place], [place] [phone] Adult Crossing Guard: Carlos Mckoy MD Leukocyte esterase Test strip Ql (U) Negative Normal NEG [facility] Comment on above: Performed By: #### U MICAO, UAX, UHCG #### [address] [place], [place] 29[address]83 Adult Crossing Guard: Carlos Mckoy MD Nitrite,Ur Negative Normal [facility] Comment on above: Performed By: #### U MICAO, UAX, UHCG #### [address] [place], [place] [id number] Adult Crossing Guard: Carlos Mckoy MD PH,Ur 6.5 Normal 5.0-9.0 [facility] Comment on above: Performed By: #### U MICAO, UAX, UHCG #### [facility] [address] [place] [address] Dr. [place], [place] [id number] Adult Crossing Guard: Carlos Mckoy MD Protein Ql (U) Negative Normal NEG [facility] Comment on above: Performed By: #### U MICAO, UAX, UHCG #### [facility] [address] [place] [address] Dr. [place], [place] [id number] Adult Crossing Guard: Carlos Mckoy MD Spec. [place],Ur 1.020 Normal 1.010-1.020 [facility] Comment on above: Performed By: #### U ANGELO, UAX, UHCG #### [facility] [address] [place], [place] [address] Adult Crossing Guard: Carlos Mckoy MD Urobilinogen,Ur Normal Normal NORM [facility] Comment on above: Performed By: #### U ANGELO, UAX, CG #### [facility] [address] [place], [place] 1101483 Adult Crossing Guard: Carlos Mckoy MD US NON OB TRANSVAGINALon [...] Denis Howe MD 06/10/22 Final result Normal [facility] 1. No evidence for torsion. 2. Simple appearing pelvic cysts are favored to be paraovarian, for which follow-up ultrasound in 3-6 months is recommended. RECOMMENDATIONS: 8 cm left paraovarian probable benign cyst. Recommend follow-up pelvic US in 3-6 months. Reference: Radiology 2019 Nov;293(2):[id number] [facility]AM[facility]: PELVIC ULTRASOUND 06/10/2022 TECHNIQUE: Transabdominal [...] Free Fluid: No evidence of free fluid. [facility] Denis Howe MD - 06/10/2022 EXAMINATION: [...] in 3-6 months. Reference: Radiology 2019 Nov;293(2):[id number] [employer] Work Phone: Radiology Study observation (narrative) [employer] [facility] [employer] Work Phone: US NON OB TRANSVAGINALOrdere d By: Denis Howe on 06-10-[address] [employer] [address] [address] Work Phone: Urinalysis with Reflex to Cu ltureon 06-10-2022 Bilirubin Urine Negative NEGATIVE [facility] Color, UA Yellow Yellow [facility] Glucose, Ur Negative NEGATIVE [facility] [employer] Interpretation and review of laboratory results Abnormal [facility] Ketones Ql (U) Negative NEGATIVE [facility] Leukocyte esterase Test strip Ql (U) Negative NEGATIVE [facility] Nitrite, Urine Negative NEGATIVE [facility] pH, UA 6.5 5 - 9 [facility] Protein, UA Negative NEGATIVE [facility] Specific [place], UA 1.020 1.01 - 1.02 [facility] Turbidity UA Clear Clear [facility] Urine Hgb 1+ Abnormal NEGATIVE [facility] Urobilinogen, Urine Normal Normal [facility] Urinalysis,Microon 2 Bacteria 1+ Abnormal NONE [facility] Comment on above: Performed By: #### U MICAO, UAX, UHCG #### [facility] [address] [place] [address] Adult Crossing Guard: Carlos Mckoy MD Epithelial cells LM Ql (Urine sed) 0 TO 2 Normal 0-25 [facility] Comment on above: Performed By: #### U MICAO, UAX, UHCG #### [facility] [address] [place], [place] [id number] Adult Crossing Guard: Carlos Mckoy MD Mucus Strands 3+ Abnormal NONE [facility] Comment on above: Performed By: #### U MICAO, UAX, UHCG #### [facility] [address] [place] [address] Adult Crossing Guard: Carlos Mckoy MD Urine RBC's 0 TO 2 Normal 0-2 [facility] Comment on above: Performed By: #### U MICAO, UAX, UHCG #### [facility] [address] [place], [facility]83 Adult Crossing Guard: Carlos Mckoy MD Urine WBC's 0 TO 2 Normal 0-5 [facility] Comment on above: Performed By: #### U MICAO, UAX, UHCG #### [facility] [address] [place] [address] Adult Crossing Guard: Carlos Mckoy MD APTTon 06-29-2020 aPTT Coag (Bld) [Time] 26.5 s Normal 25.0-35.0 Th e [facility] Comment on above: Result Comment: ALL [...] THIS PURPOSE. Performed By: #### 5 7307, 64367, [id number] #### [facility] [address] [place] [address], [facility] BASIC METABOLIC PANELon Calcium [Mass/Vol] 9.3 mg/dL Normal 8.6-10.3 [facility] Comment on above: Performed By: #### 1 5, 80330, 06527 #### [facility] [address] [place] [address], [place] Chloride [Moles/Vol] 104 mmol/L Normal 98-107 [facility] Comment on above: Performed By: #### 1 5, 68625, 86646 #### [facility] [address] [place] [address], [place] CO2 [Moles/Vol] 25 mmol/L Normal 21-31 [facility] Comment on above: Performed By: #### 1 5, 59574, 97133 #### [facility] [address] [place] [address], [place] Creatinine [Mass/Vol] 0.71 mg/dL Normal 0.60-1.20 The [facility] Comment on above: Performed By: #### 1 54, 48503, 08310 #### [facility] [address] [place] [address], [place] GFR/1.73 sq M predicted among blacks MDRD (S/P/Bld) [Vol rate/Area] mL/min/{1.73_m2} Normal >60 [facility] Comment on above: Performed By: #### 1 54, 83263, 28945 #### [facility] [address] [place] [address], [place] GFR/1.73 sq M predicted among non-blacks MDRD (S/P/Bld) [Vol rate/Area] mL/min/{1.73_m2} Normal >60 The [facility] Comment on above: Performed By: #### 1 54, 01107, 72079 #### [facility] [address] [place] [address], [place] Glucose [Mass/Vol] 99 mg/dL Normal 70-100 The [facility] Comment on above: Performed By: #### 1 5, 34828, 71516 #### [facility] [address] [place] [address], [facility] Potassium [Moles/Vol] 3.3 mmol/L Low 3.5-5.1 The [facility] Comment on above: Performed By: #### 1 54, 46041, 66348 #### [facility] [address] [place] [address], [facility] Sodium [Moles/Vol] 139 mmol/L Normal 136-145 The [facility] Comment on above: Performed By: #### 1 54, 15018, 60071 #### [facility] [address] [facility] [address] Urea nitrogen [Mass/Vol] 15 mg/dL Normal 7-25 The [facility] Comment on above: Performed By: #### 1 54, 53663, 84555 #### [facility] 3000 [facility]. [address] CBC W/DIFFon 06-29-2020 ABS BASOPHILS 0.1 10*3/uL Normal 0.0-0.2 The [facility] Comment on above: Performed By: #### 5 3 #### [facility] [address] [facility] [address] ABS IMM GRANS 0.1 10*3/uL Normal 0.0-0.2 The [facility] Comment on above: Performed By: #### 5 0103 #### [facility] 3000 [facility]. [address] ABS NEUTROPHILS 5.3 10*3/uL Normal 1.6-7.6 The [facility] Comment on above: Performed By: #### 5 3 #### [facility] [address] [place] [address], [facility] Basophils/100 WBC (Bld) 0.7 % Normal 0.0-1.0 T guillermo [facility] Comment on above: Performed By: #### 5 0103 #### [facility] [address] [place] [address], [facility] Eosinophils (Bld) [#/Vol] 0.2 10*3/uL Normal 0.0-0.5 The [facility] Comment on above: Performed By: #### 5 0103 #### [facility] [address] [facility] [place] [address], [facility] Eosinophils/100 WBC (Bld) 1.7 % Normal 0.0-6.0 The [facility] Comment on above: Performed By: #### 5 0103 #### [facility] [address] [facility] [address] Erythrocyte distribution width (RBC) [Ratio] 14.1 % Normal 11.5-15.0 [facility] Comment on above: Performed By: #### 5 0103 #### [facility] [address] Hematocrit (Bld) [Volume fraction] 41.8 % Normal 36.0-45.0 [facility] Comment on above: Performed By: #### 5 0103 #### [facility] [address] [facility] [place] [address], [facility] Hemoglobin (Bld) [Mass/Vol] 14.0 g/dL Normal 12.0-15.0 The [facility] Comment on above: Performed By: #### 5 0103 #### [facility] [address] [facility] [place] [address], [facility] IMMATURE GRANS 1.3 % High 0.0-1.0 The [facility] Comment on above: Performed By: #### 5 0103 #### [facility] [address] [place] [address], [facility] Lymphocytes (Bld) [#/Vol] 3.7 10*3/uL Normal 1.2-4.0 The [facility] Comment on above: Performed By: #### 5 0103 #### [facility] [address] [place] [address], [facility] Lymphocytes/100 WBC (Bld) 34.6 % Normal 20.0-45.0 The [facility] Comment on above: Performed By: #### 5 3 #### [facility] [address] [place] [address], [facility] MCH (RBC) [Entitic mass] 28.3 pg Normal 27.0-33.0 The [facility] Comment on above: Performed By: #### 5 3 #### [facility] [address] [place] [address], [facility] MCHC (RBC) [Mass/Vol] 33.5 g/dL Normal 32.0-35.0 The [facility] Comment on above: Performed By: #### 5 3 #### [facility] [address] [place] [address], [facility] MCV (RBC) [Entitic vol] 84.6 fL Normal 82.0-98.0 T he [facility] Comment on above: Performed By: #### 5 3 #### [facility] [address] [place] [address], [facility] Monocytes (Bld) [#/Vol] 1.3 10*3/uL High 0.1-1.0 The [facility] Comment on above: Performed By: #### 5 3 #### [facility] [address] [place] [address], [facility] MONOS 12.1 % High 5.0-12.0 The [facility] Comment on above: Performed By: #### 5 3 #### [facility] [address] [place] [address], [facility] Neutrophils/100 WBC (Bld) 49.6 % Normal 40.0-72.0 [facility] Comment on above: Performed By: #### 5 0103 #### [facility] 3000 [facility]. [address] Nucleated RBC/100 WBC (Bld) [Ratio] 0 % Normal 0-0 [facility] Comment on above: Performed By: #### 5 0103 #### [facility] 3000 [facility] [place] [place] [address], [facility] PLAT CNT 260 10*3/uL Normal 150-400 The [facility] Comment on above: Performed By: #### 5 0103 #### [facility] [address] RBC (Bld) [#/Vol] 4.94 10*6/uL Normal 3.80-5.00 [facility] Comment on above: Performed By: #### 5 0103 #### [facility] [address] WBC (Bld) [#/Vol] 10.70 10*3/uL High 4.00-10.60 [facility] Comment on above: Performed By: #### 5 0103 #### [facility] [address] D DIMER TESTon 06-29-2020 D-DIMER TEST <0.27 Normal 0.01-0.49 The [facility] Comment on above: Result Comment: D-Di flip values of less than 0.50 ug/ml (FEU) are considered to be a negative predictor of thrombosis. However, the D-Dimer result should be used in conjunction with pretest probability and should not be used alone to diagnose a thrombotic event. Performed By: #### 1 0055, 06107, 52979 #### [facility] [address] ED TOX PANEL URINEon 020 50 THC Negative Normal NEGATIVE The [facility] Comment on above: Performed By: #### 3 1763 #### [facility] [address] [place] [address], [facility] BARBITURATES Negative Normal NEGATIVE The [facility] Comment on above: Performed By: #### 3 1763 #### [facility] [address] [place] [address], [facility] Benzodiazepines Ql (U) Negative Normal NEGATIVE Th e [facility] Comment on above: Performed By: #### 3 1763 #### [facility] [address] [place] [address], [facility] Cocaine Ql (U) Negative Normal NEGATIVE The [facility] Comment on above: Performed By: #### 3 1763 #### [facility] [address] [place] [address], [facility] Methadone Ql (U) Negative Normal NEGATIVE The [facility] Comment on above: Performed By: #### 3 1763 #### [facility] [address] [place] [address], [facility] MONO AMPHET Negative Normal NEGATIVE The [facility] Comment on above: Performed By: #### 3 1763 #### [facility] [address] [place] [address], [facility] Opiates Ql (U) Negative Normal NEGATIVE The [facility] Comment on above: Performed By: #### 3 1763 #### [facility] [address] [place] [address], [facility] Phencyclidine Ql (U) Negative Normal NEGATIVE The [facility] Comment on above: Performed By: #### 3 1763 #### [facility] [address] [place] [address], [facility] PROPOXYPHENE Negative Normal NEGATIVE The [facility] Comment on above: Performed By: #### 3 1763 #### [facility] [address] [place] [address], [facility] TRICYCLICS Negative Normal NEGATIVE The [facility] Comment on above: Performed By: #### 3 1763 #### [facility] [address] [place] [address], [place] LIVER BATTERYon 06-29-2020 Albumin [Mass/Vol] 3.9 g/dL Normal 3.5-5.7 [facility] Comment on above: Performed By: #### 1 0055, 24848, 72954 #### [facility] [address] [place] [address], [facility] ALKALINE PHOSPH 58 IU/L Normal 34-104 The [facility] Comment on above: Performed By: #### 1 0055, 34356, 51298 #### [facility] [address] [place] [address], [facility] ALT [Catalytic activity/Vol] 22 U/L Normal 7-52 The [facility] Comment on above: Performed By: #### 1 0055, 19011, 05247 #### [facility] [address] [place] [address], [facility] HOSPITAL AST [Catalytic activity/Vol] 25 U/L Normal 13-39 The [facility] Comment on above: Performed By: #### 1 0055, [id number], 69746 #### [facility] [address] [place] [address], [place] Bilirubin [Mass/Vol] 0.2 mg/dL Low 0.3-1.0 The [facility] Comment on above: Performed By: #### 1 0055, 65505, [id number] #### [facility] [address] [place] [address], [place] Bilirubin.direct [Mass/Vol] 0.0 mg/dL Normal 0.0-0.2 The [facility] Comment on above: Performed By: #### 1 0055, 71574, 45205 #### [facility] [address] [facility] [place] [address], [facility] Protein [Mass/Vol] 7.1 g/dL Normal 6.0-8.3 The [facility] Comment on above: Performed By: #### 1 0055, 01131, 97221 #### [facility] [address] [facility] [place] [place] [address], [facility] POC URINE PREGNANCYon 2019 Beta HCG ( test) Ql (U) Negative Normal NEGATIVE The [facility] Comment on above: Result Comment: Perf ormed in Emergency Department. Performed By: #### 1 0055, 27017, 36620 #### [facility] [address] [place] [address], [facility] PORTABLE CHEST 1 VIEWon PORTABLE CHEST 1 VIEW [facility] Department of Radiology [address] [place] [address] [id number] Patient Name: LUPE ABRAMS : 1985 Sex: F Age: Race: White Pt. Location: [facility] Patient Status: E Ordered Date: 06/29/2020 7:25:00 [...] process Electronically signed: Jazmin Ngo. Transcribed by: [email or web address], User Resident: Electronically Signed by: JAZMIN NGO @ 06/29/2020 08:10 PM Normal [facility] Comment on above: Order Comment: R/O I nfiltrates PROTHROMBIN TIMEon 0 INR Coag (PPP) [Relative time] 0.96 {INR} Normal 0.91-1.16 [facility] Comment on above: Result Comment: ACCC P [...] CHEST 1995;[id number]. Performed By: #### 5 7307, 24082, 46990 #### [facility] [address] PT Coag (PPP) [Time] 12.8 s Normal 12.3-14.8 The [facility] Comment on above: Result Comment: ALL RESULTS MUST BE INTERPRETED WITH RESPECT TO BLOOD DRAWING ARTIFACT OR DILUTION ERROR OF ANTICOAGULANT AT THE TIME OF SAMPLING. Performed By: #### 5 7307, 81416, 41583 #### [facility] [address] [place] [address], [facility] TROPONIN-Ion 06-29-2020 Troponin I.cardiac [Mass/Vol] 0.01 ng/mL Normal 0.00-0.04 The [facility] Comment on above: Result Comment: REFE RENCE RANGES: 0.00 - 0.04 ng/ml NORMAL 0.05 - 0.50 ng/ml INDETERMINATE > 0.50 ng/ml CONSISTENT WITH AN M.I. Performed By: #### 1 0055, 28108, 09412 #### [facility] [address] URINALYSIS REFLEXon 06-29-20 20 Appearance (U) CLOUDY Abnormal CLEAR The [facility] Comment on above: Order Comment: Crite vania for reflexing a culture was not met. Please call the lab at [phone] within 24 hours of collection time if culture is needed Performed By: #### 3 0915 #### [facility] [address] [place] [address], [facility] Bilirubin [Mass/Vol] Negative Normal NEGATIVE The [facility] Comment on above: Order Comment: Crite vania for reflexing a culture was not met. Please call the lab at [phone] within 24 hours of collection time if culture is needed Performed By: #### 3 0965 #### [facility] [address] [place] [address], [facility] BLOOD SMALL Abnormal NEGATIVE The [facility] Comment on above: Order Comment: Crite vania for reflexing a culture was not met. Please call the lab at [phone] within 24 hours of collection time if culture is needed Performed By: #### 3 0965 #### [facility] [address] Color (U) YELLOW Normal YELLOW The [facility] Comment on above: Order Comment: Crite vania for reflexing a culture was not met. Please call the lab at 7668 within 24 hours of collection time if culture is needed Performed By: #### 3 0965 #### [facility] [address] [place] [address], [facility] EPIS MANY Abnormal FEW,OCC,NONE SEEN The [facility] Comment on above: Order Comment: Crite vania for reflexing a culture was not met. Please call the lab at [phone] within 24 hours of collection time if culture is needed Performed By: #### 3 0965 #### [facility] [address] [facility] [place] [address], [facility] Glucose [Mass/Vol] Negative Normal NEGATIVE The [facility] Comment on above: Order Comment: Crite vania for reflexing a culture was not met. Please call the lab at [phone] within 24 hours of collection time if culture is needed Performed By: #### 3 0965 #### [facility] [address] [place] [address], [facility] HYALINE CASTS 3 /LPF Abnormal NONE SEEN The [facility] Comment on above: Order Comment: Crite vania for reflexing a culture was not met. Please call the lab at [phone] within 24 hours of collection time if culture is needed Performed By: #### 3 0965 #### [facility] [address] [facility] [place] [address], [facility] KETONE Negative Normal NEGATIVE The [facility] Comment on above: Order Comment: Crite vania for reflexing a culture was not met. Please call the lab at [phone] within 24 hours of collection time if culture is needed Performed By: #### 3 0965 #### [facility] [address] [place] [address], [place] LEUK LIDYA TRACE Abnormal NEGATIVE The [facility] Comment on above: Order Comment: Crite vania for reflexing a culture was not met. Please call the lab at 7668 within 24 hours of collection time if culture is needed Performed By: #### 3 0965 #### [facility] [address] [place] [address], [facility] MUCUS THREADS MOD Abnormal NONE SEEN The [facility] Comment on above: Order Comment: Crite vania for reflexing a culture was not met. Please call the lab at 7668 within 24 hours of collection time if culture is needed Performed By: #### 3 0965 #### [facility] [address] [facility] [place] [address], [facility] Nitrite Ql (U) Negative Normal NEGATIVE The [facility] Comment on above: Order Comment: Crite vania for reflexing a culture was not met. Please call the lab at 7668 within 24 hours of collection time if culture is needed Performed By: #### 3 0965 #### [facility] [address] [facility] [place] [address], [facility] pH (Bld) 6.0 Normal 5.0-8.0 [facility] Comment on above: Order Comment: Crite vania for reflexing a culture was not met. Please call the lab at 7668 within 24 hours of collection time if culture is needed Performed By: #### 3 0965 #### [facility] [address] [facility] [place] [place] [address], [facility] Protein (U) [Mass/Vol] 30 mg/dL Abnormal NEGATIVE e [facility] Comment on above: Order Comment: Crite vania for reflexing a culture was not met. Please call the lab at 7668 within 24 hours of collection time if culture is needed Performed By: #### 3 0965 #### [facility] [address] [facility] [place] [place] [address], [facility] RBC (U) [#/Vol] 3-5 Abnormal NONE SEEN The [facility] Comment on above: Order Comment: Crite vania for reflexing a culture was not met. Please call the lab at 7668 within 24 hours of collection time if culture is needed Performed By: #### 3 0965 #### [facility] [address] SPEC GRAV 1.023 High 1.015-1.020 The [facility] Comment on above: Order Comment: Crite vania for reflexing a culture was not met. Please call the lab at 7668 within 24 hours of collection time if culture is needed Performed By: #### 3 0965 #### [facility] [address] [facility] [place] [place] [address], [facility] WBC UA 11-20 Abnormal NONE SEEN The [facility] Comment on above: Order Comment: Crite vania for reflexing a culture was not met. Please call the lab at [phone] within 24 hours of collection time if culture is needed Performed By: #### 3 0965 #### [facility] [address] [facility]. [address] MUMPS IGG BLDon 05-07-2020 MUMPS IGG 1.39 Normal [facility] Comment on above: Result Comment: NORM AL RANGES: < OR = 0.9O NEGATIVE ; NO DETECTABLE IgG ANTIBODY TO MUMPS 0.91 - 1.09 EQUIVOCAL; REPEAT TESTING SUGGESTED > OR = 1.10 POSITIVE ; INDICATES PRESENCE OF DETECTABLE IgG ANTIBODY TO MUMPS Performed By: #### 1 0055, 39300, 96143 #### [facility] [address] RUBELLAon 05-07-2020 RUBELLA 2.16 Normal The [facility] Comment on above: Result Comment: NORM AL RANGES: < OR = 0.9O NEGATIVE ; NO DETECTABLE IgG ANTIBODY TO RUBELLA 0.91 - 1.09 EQUIVOCAL; REPEAT TESTING SUGGESTED > OR = 1.10 POSITIVE ; INDICATES PRESENCE OF DETECTABLE IgG ANTIBODY TO RUBELLA VIRUS Performed By: #### 1 0055, 42347, 69554 #### [facility] [address] [facility]. [address] RUBEOLA MEASLES IGGon 2019 RUBEO IGG 1.82 Normal The [facility] Comment on above: Result Comment: NORM AL RANGES: < OR = 0.9O NEGATIVE ; NO DETECTABLE IgG ANTIBODY TO RUBEOLA 0.91 - 1.09 EQUIVOCAL; REPEAT TESTING SUGGESTED > OR = 1.10 POSITIVE ; INDICATES PRESENCE OF DETECTABLE IgG ANTIBODY TO RUBEOLA Performed By: #### 1 0055, 60186, 68556 #### [facility] [address] TB QUANTIFERON PLUSon 2019 MITOGEN MINUS NIL >10.00 Normal [facility] Comment on above: Performed By: #### 3 1592 #### [facility] [address] NIL 0.02 IU/mL Normal [facility] Comment on above: Performed By: #### 3 1592 #### [facility] [address] TB QUANTIFERON Negative Normal NEGATIVE The [facility] Comment on above: Result Comment: Laith tiferon TB Gold Interpretation (IU/mL): NEGATIVE: M. tuberculosis infection not likely. Nil: <=8.0 TB1 Antigen minus Nil ([id number]): <0.35 OR >=0.35; and <25% of Nil value. TB2 Antigen minus Nil ([id number]): <0.35 OR >=0.35; and <25% of Nil [...] (https://www.cdc.gov/tb/publications/guidlines/default.htm Performed By: #### 3 1592 #### [facility] [address] [place] [address], [facility] TB1 AG 0.02 IU/mL Normal [facility] Comment on above: Performed By: #### 3 1592 #### [facility] 3000 [place] [address], [facility] TB1 AG MINUS NIL 0.00 IU/mL Normal The [facility] Comment on above: Performed By: #### 3 1592 #### [facility] [address] [place] [address], [facility] TB2 AG 0.02 IU/mL Normal The [facility] Comment on above: Performed By: #### 3 1592 #### [facility] [address] [place] [address], [facility] TB2 AG MINUS NIL 0.00 IU/mL Normal The [facility] Comment on above: Performed By: #### 3 1592 #### [facility] [address] [facility] [address], [facility] Measles IgG-[facility] 8 Measles (Rubeola) IgG Ab-[place] Negative [facility] Comment on above: Result Comment: ---- REFERENCE VALUE Vaccinated: Positive (>=1.1 AI)Unvaccinated: Negative (<=0.8 AI) Performed By: #### C [id number] ####[facility] [place] [address] Measles IgG Ab Index-[place]em 0.8 [facility] Comment on above: Result Comment: Test Performed by:[facility] [place] [address] Performed By: #### C [id number] ####[facility] [id number] [place] [address] VZ IgG-[facility] 07-16-2018 Varicella IgG Antibody Index-[place] 0.9 [facility] Comment on above: Result Comment: Test Performed by:[facility] [place] [address] Performed By: #### V ZPG ####[facility] [id number] [place] [address] Varicella-Zoster IgG Antibody-[place] Equivocal Normal [facility] Comment on above: Result Comment: Yeyo mmend follow-up testing in 10-14 days if clinicallyindicated. REFERENCE VALUE Vaccinated: Positive (>=1.1 AI)Unvaccinated: Negative (<=0.8 AI) Performed By: #### V ZPG ####[address] [address] Rubella IgGon 07-14-2018 Rubella IgG Ab Interp Reactive Normal [facility] Comment on above: Result Comment: The presence of detectable IgG-class antibodies indicates immunity to the rubella virus through prior immunization or exposure. Individuals testing reactive (positive) are considered immune to rubella infection.This result was obtained with the Access Rubella IgG EIA. Despite calibration by means of a reference preparation, values obtained with different oracle financials developer's assay methods may not be used interchangeably. The magnitude of the reported IgG level CANNOT be correlated to an endpoint titer. Performed By: #### R UB ####[address] [address] Vital Signs Date Time Vital Sign Value Performing Clinician Shay rodríguez 10-09-2023 14:30-0500 Body height 180.3 cm Smith Bao DO Work Phone: [employer] 10-09-2023 14:30-0500 Body mass index (BMI) [Ratio] 50.45 kg/m2 Smith Bao DO Work Phone: [facility] 10-09-2023 14:30-0500 Body weight 163.97 kg Smith Bao DO Work Phone: [employer] 10-09-2023 14:30-0500 Diastolic blood pressure 90 mm[Hg] Smith Bao DO Work Phone: [facility] 10-09-2023 14:30-0500 Heart rate 103 /min Smith Bao DO Work Phone: [employer] 10-09-2023 14:30-0500 SaO2% (BldA) [Mass fraction] 98 % Smith Bao DO Work Phone: [facility] [employer] [facility] 10-09-2023 14:30-0500 Systolic blood pressure 142 mm[Hg] Smith Bao DO Work Phone: [facility] 09-20-2022 02:30-0500 Diastolic blood pressure 74 mm[Hg] Johana Sagastume MD Work Phone: [employer] 09-20-2022 02:30-0500 Heart rate 108 /min Johana Sagastume MD Work Phone: [employer] 09-20-2022 02:30-0500 Respiratory rate 24 /min Johana Sagastume MD Work Phone: [employer] 09-20-2022 02:30-0500 Systolic blood pressure 122 mm[Hg] Johana Sagastume MD Work Phone: [employer] 09-20-2022 01:09-0500 Body height 180.3 cm Johana Sagastume MD Work Phone: [employer] 09-20-2022 01:09-0500 Body mass index (BMI) [Ratio] 50.91 kg/m2 Johana Sagastume MD Work Phone: [employer] 09-20-2022 01:09-0500 Body temperature 98.8 [degF] Johana Sagastume MD Work Phone: [employer] 09-20-2022 01:09-0500 Body weight 165.56 kg Johana Sagastume MD Work Phone: [employer] 09-20-2022 01:09-0500 SaO2% (BldA) [Mass fraction] 95 % Johana Sagastume MD Work Phone: [employer] 06-10-2022 15:57-0400 SaO2% (BldA) [Mass fraction] 97 % Neptali Fontenot MD Work Phone: [facility] 06-10-2022 15:12-0400 Diastolic blood pressure 78 mm[Hg] Neptali Fontenot MD Work Phone: [facility] 06-10-2022 15:12-0400 Systolic blood pressure 139 mm[Hg] Neptali Fontenot MD Work Phone: [facility] 06-10-2022 15:11-0400 Body mass index (BMI) [Ratio] 50.91 kg/m2 Neptali Fontenot MD Work Phone: [facility] 06-10-2022 15:11-0400 Body weight 165.56 kg Neptali Fontenot MD Work Phone: [facility] 06-10-2022 15:07-0400 Body temperature 98.2 [degF] Neptali Fontenot MD Work Phone: [facility] 06-10-2022 15:07-0400 Heart rate 93 /min Neptali Fontenot MD Work Phone: [facility] 06-10-2022 15:07-0400 Respiratory rate 18 /min Neptali Fontenot MD Work Phone: [facility] Encounters Encounter Date Encounter Type Care Provider Facility Start: 07-04-2024 End: 07-04-2024 ambulatory NEPTALI Leandro FONTENOT [facility] Start: 07-04-2024 Encounter for genera l adult medical examination without abnormal findings [facility] Start: 02-10-2024 End: 02-11-2024 Emergency department patient visit ANA ROSA TATUM [facility] Start: 02-10-2024 End: 02-10-2024 Emergency department patient visit NEPTALI FONTENOT [facility] Start: 10-12-2023 End: 10-12-2023 [facility] Start: 10-09-2023 End: 10-09-2023 Office outpatient visit 15 minutes Smith Mendez DO Work Phone: [facility] Comment on above: Precordial pain (Saira enzo Dx) Start: 10-09-2023 End: 10-09-2023 ambulatory SMITH MENDEZ [facility] Start: 10-08-2023 Telephone encounter [facility] Start: 05-29-2023 End: 05-30-2023 ambulatory [facility] Start: 09-20-2022 End: 09-20-2022 Emergency department patient visit [facility] Start: 09-20-2022 End: 09-20-2022 Emergency department patient visit Johana Sagastume MD Work Phone: [facility] Comment on above: Influenza with respi ratory manifestation other than pneumonia (Primary Dx); Influenza A Start: 06-10-2022 End: 06-10-2022 Emergency department patient visit [facility] Start: 06-10-2022 End: 06-10-2022 Emergency department patient visit Neptali Fontenot MD Work Phone: [facility] Comment on above: Back strain, initial encounter (Primary Dx); PCOS (polycystic ovarian syndrome) Start: 06-29-2020 End: 06-29-2020 Emergency department patient visit ARTEMIO MCGUIRE [facility] Start: 07-14-2018 End: 07-15-2018 Patient encounter AMBER RINALDI Facility:[facility] Procedures Date Procedure Procedure Detail Performing Clinician [...] (3 - Td or Tdap) [facility] Start: 02-16-2025 DTaP,Tdap and Td Vaccines (2 - Td or Tdap) DTaP,Tdap and Td Vaccines (2 - Td or Tdap) [facility] Start: 10-09-2024 Adult BMI Screening Adult BMI Screen ing [facility] Start: 10-09-2024 Tobacco Screening Tobacco Screening [facility] Start: 07-15-2024 Adult BMI Screening Adult BMI Screen ing [facility] Start: 07-14-2024 Tobacco Screening Tobacco Screening [facility] Start: 10-09-2023 End: 10-09-2023 Patient encounter procedure 10/09/2023 2:45 PM EST Office Visit [facility] [address] [place], [place] [address] [place] [address] Smith Mendez, DO [address] [place] [address], [address] [place] [address] [facility] Start: 06-12-2023 Adult BMI Follow Up Plan Adult BMI Follow Up Plan [facility] Start: 05-29-2023 Influenza vaccination Influenza Vacc ine [facility] Start: 05-29-2022 Influenza vaccination Flu vaccine (# 1) [facility] Start: 04-28-2022 Influenza vaccination Flu vaccine (# 1) [facility] Start: 01-15-2022 COVID-19 Vaccine (3 - Booster for Pfizer series) COVID-19 Vaccine (3 - Booster for Pfizer series) [facility] Start: 10-12-2021 COVID-19 Vaccine (3 - Booster for Pfizer series) COVID-19 Vaccine (3 - Booster for Pfizer series) [facility] Start: 12-07-2018 Diabetes screen Diabetes screen [facility] Start: 12-07-2013 Screening for malign ant neoplasm of cervix [facility] Start: 12-07-2004 Screening for malign ant neoplasm of cervix Pap smear [facility] Start: 12-07-2001 Hepatitis C screening Hepatitis C sc reen [facility] Start: 12-07-1998 HIV screening HIV screen [facility] Start: 1995 Depression Screen Depression Screen [facility] Start: 1995 Depression Screening Depression Scre [facility] Start: 12-07-1984 Varicella vaccine (1 of 2 - 2-dose childhood series) Varicella vaccine (1 of 2 - 2-dose childhood series) [facility] End: 09-20-2022 Strep A culture, throat Strep A culture, throat Microbiology STAT One Time for 1 Occurrences starting 09/20/2022 until 09/20/2022 [facility] Work Phone: Comment on above: One Time for 1 Occur rences starting 09/20/2022 until 09/20/2022 End: 06-10-2022 US DUP ABD PEL RETRO SCROT LIMITED [facility] [employer] Work Phone: Comment on above: Once for 1 Occurrenc es starting 06/10/2022 until 06/10/2022 Payers Date Payer Category Payer Medicaid [facility] MEDICAID [facility] MEDICAID [id number] 2022-Present [phone] [address] [place] [address] [id number] 2021 Medicaid [id number] 2021 Unknown [id number] 1985 Unknown [id number] [id number] 1985 Unknown [id number] [id number] 1985 Unknown [id number] [id number] 1983 Unknown [id number] [id number] 1983 Unknown [id number] [id number] 1983 Unknown [id number] [id number] 1983 Unknown [id number] [id number] 1983 Unknown [id number] [id number] 1983 Unknown [id number] [id number] 1983 Unknown [id number] [id number] Unknown [id number] Unknown [id number] Social History Date Type Detail Facility Start: 12-22-2017 End: 10-09-2023 Tobacco smoking status [facility] Never smoked tobacco [facility] Start: 12-22-2017 End: 10-09-2023 Tobacco use and exposure Smokeless tobacco non-user [employer] Phone: Start: 06-10-2022 End: 09-20-2022 Alcohol intake Current drinker of alcohol (finding) [employer] Phone: Start: 1985 Sex Assigned At Not on file [employer] Phone: Start: 05-31-2022 End: 09-20-2022 Exposure to SARS-CoV-2 (event) Not sure [employer] Phone: Start: 07-14-2023 End: 10-09-2023 Alcohol intake Ex-drinker (finding) [employer] Start: 10-11-2020 End: 03-27-2021 [facility] of [facility] Start: 10-11-2020 End: 03-27-2021 Social connection and isolation panel [facility] Do you belong to any clubs or organizations such as latter day groups, unions, fraternal or athletic groups, or school groups? No [facility] Are you now , , , , never or living with a partner? Never [facility] How often to you hav e a drink containing alcohol? Monthly or less [facility] How many standard dr inks containing alcohol do you have on a typical day? 1 or 2 [facility] How often do you hav e 6 or more drinks on 1 occasion? Never [facility] How hard is it for y ou to pay for the very basics like food, housing, medical care, and heating Not hard at all [facility] Start: 1985 [facility] At Female [facility] Start: 04-10-2022 Gender identity Identifies as female gender (finding) [facility] Start: 04-10-2022 Sexual orientation Heterosexual (finding) [facility] Goals Date Patient Goal Desired Activity [...] PCOS (polycystic ovarian syndrome) BMI 50.0-59.9, adult ([facility]) Insulin resistance Hyperinsulinemia Chest pain COVID-19 Pelvic [...] Diagnosis Date Acid reflux Anemia Angina pectoris ([facility]) seen in ER X2- related to [...] 07/04/2022 Performed by Tal Mendez MD at [facility] DILATION AND CURETTAGE OF UTERUS X2 HYSTEROSCOPY [...] Friends and Family: Twice a week Attends Protestant Services: Never Active Member of Clubs or [...] Fontenot MD Referring Physician: Neptali Fontenot MD [address] [place] [address] documented in this encounter [facility] Note 10-08-2023 Telephone Encounter - Jessica Dixon CMA - 10/08/2023 10:10 AM EST Note Date & Type Note Facility 10-08-2023 Miscellaneous Notes Formattin g of this note might be different from the original. Left message for patient to remind them to bring their most current medication list with them to their appointment. documented in this encounter [facility] Telephone encounter Note 10-08-2023 Telephone Encounter - Jessica Dixon CMA - 10/08/2023 10:10 AM EST Note Date & Type Note Facility 10-08-2023 Telephone encount er Note Left message for patient to remind them to bring their most current medication list with them to their appointment. [facility] Hospital Discharge instructions 09-20-2022 Discharge InstructionsAttachments [...] cannot be sent through Care Everywhere.Immunization: Influenza (Macanese)documented in this encounter [facility]: Evaluation note Note Date & Type Note Facility Evaluation note Diagnosis Back strain, initial encounter- Primary PCOS (polycystic ovarian syndrome) Polycystic ovaries documented in this encounter [facility] Phone: Evaluation note Note Date & Type Note Facility Evaluation note Diagnosis Influenza with respiratory manifestation other than pneumonia- Primary Influenza with other respiratory manifestations Influenza A Influenza with other respiratory manifestations documented in this encounter [facility]: Evaluation note Note Date & Type Note Facility Evaluation note Diagnosis Precordial pain- Primary documented in this encounter [facility] Hospital Discharge instructions Attachments Note Date & Type Note Facility Hospital Discharge instructions The following attachments cannot be sent through Care Everywhere.Polycystic Ovary Syndrome (Macanese)Back: Strain (Macanese)documented in this encounter [facility] Phone: Instructions Note Date & Type Note Facility Instructions Not on filedocumented in this en counter [facility] Instructions Note Date & Type Note Facility Instructions Not on filedocumented in this en counter [facility] Summary Purpose Family History No Family [...] section and content) DATE CREATED AUTHOR 08/16/2018 [facility] DATE CREATED AUTHOR AUTHOR'S ORGANIZ ATION 07/11/2020 [facility] DATE CREATED AUTHOR AUTHOR'S ORGANIZ ATION 06/01/2023 [facility] DATE CREATED AUTHOR AUTHOR'S ORGANIZ ATION 07/05/2024 [facility] Reason for Visit (unrecogniz ed section and [...] Care Teams (unrecognized sec tion and content) Reservationist Relationship Specialty Start Date End Date Neptali Fontenot MD [address] [place] [address] PCP - General 09/06/13 Reservationist Relationship Specialty Start Date End Date Neptali Fontenot MD [address] [place] [address] PCP - General 09/06/13 Reservationist Relationship Specialty Start Date End Date Neptali Fontenot MD [address] [place] [address] PCP - General Family Medicine 02/10/19 Reservationist Relationship Specialty Start Date End Date Neptali Fontenot MD [address] [place] [address] PCP - General Family Medicine 02/10/19 [...] BE BASED ON THE PRIMARY CLINICAL RECORDS. [facility]. provides no warranty or guarantee of the accuracy or completeness of information in this document.
--- NOTE | 2025-05-19 23:34 | ED.SKABFB1 ---
HPI - Skin/Abscess/Foreign Bdy General Chief complaint: Skin/Abscess/Foreign Body Stated complaint: RASH Time Seen by Provider: 05/19/25 23:30 Source: patient Mode of arrival: walk-in Limitations: no limitations History of Present Illness HPI narrative: presents complaining of rash right forearm for one week. has used benadryl and steroid cream without improvement. infact it continues to spread and is now draining some as well. No fever or chills Related Data Home Medications ?Medication ?Instructions ?Recorded ?Confirmed citalopram 20 mg tablet (Celexa) 20 mg PO DAILY 02/08/25 05/19/25 lorazepam 0.5 mg tablet mg 05/19/25 Allergies Allergy/AdvReac Type Severity Reaction Status Date / Time No Known Drug Allergies Allergy Verified 05/19/25 22:58 Review of Systems ROS Status of ROS 10 or more systems reviewed and unremarkable except as noted in history and below PFSH PFSH Social History Little interest or pleasure in doing things: not at all Feeling down, depressed, or hopeless: not at all Exam Constitutional Vital Signs, click to edit/add: Last Vital Signs Temp 98.4 F 05/19/25 22:58 Pulse 82 05/19/25 22:58 Resp 18 05/19/25 22:58 BP 172/101 H 05/19/25 22:58 Pulse Ox 97 05/19/25 22:58 O2 Del Method Room Air 05/19/25 22:58 Common normals: no apparent distress, average body habitus, oriented x3, no limitations, healthy appearing, alert and well nourished [facility] Common normals: normocephalic and head/scalp atraumatic Eye Common normals: EOMs intact bilaterally and conjunctivae normal Respiratory Common normals: normal respiratory effort, no retractions, no use of accessory muscles and clear to auscultation bilaterally Cardio Common normals: regular rate, regular rhythm, S1 normal heart sound and S2 normal heart sound Extremity Other: erythematous multiple sl. raised lesions in patch like distribution. Skin is also sl raised. some lesions are pustular. No active drainage Neuro Common normals: oriented x3, CN's II-XII intact bilaterally, moves all extremities and no focal motor deficits Psych Appearance: grossly normal Course Vital Signs Vital signs: Vital Signs Temperature 98.4 F 05/19/25 22:58 Pulse Rate 82 08/22/25 22:58 Respiratory Rate 18 05/19/25 22:58 Blood Pressure 172/101 H 05/19/25 22:58 Pulse Oximetry 97 05/19/25 22:58 Oxygen Delivery Method Room Air 05/19/25 22:58 Temperature 98.4 F 05/19/25 22:58 Pulse Rate 82 05/19/25 22:58 Respiratory Rate 18 05/19/25 22:58 Blood Pressure 172/101 H 05/19/25 22:58 Pulse Oximetry 97 05/19/25 22:58 Oxygen Delivery Method Room Air 05/19/25 22:58 MDM - Skin/Abscess/Foreign Bdy MDM Narrative Medical decision making narrative: presents with infected appearing lesion on the right proximal FA that appears to be infected. will plan to treat with course of clindamycin and recommend close follow up Discharge Plan Discharge Chief Complaint: Skin/Abscess/Foreign Body Clinical Impression: Cellulitis Patient Disposition: Home, Self-Care Prescriptions / Home Meds: No Action lorazepam 0.5 mg tablet citalopram [Celexa] 20 mg tablet 20 mg PO DAILY Print Language: Yakut Instructions: Cellulitis (ED) Referrals: Steve Zheng MD [Primary Care Provider] - 1 week
[2025-05-20] MEDS: CLINDAMYCIN HCL 150 MG CAPSULE 300 MG PO (00:09)
== END 2025-05-20 00:11 | disposition home or self-care (01) ==
PROVIDERS: Emergency Provider Internal Medicine; PCP Family Medicine
DX: L03.113 Cellulitis of right upper limb (principal)
CPT/HCPCS: 99283

== ENCOUNTER 2025-07-08 07:22 | Emergency (ER) | payer BC, OTHER, SELFPAY ==
--- OUTSIDE RECORDS SUMMARY | 2021-11-25 06:45 | XMS_ITS | Continuity of Care Document ---
Author Organization [facility] Address [address] [place] [address] [place] [address] Phone Care Team Providers Care Butt Sawyer Name Role Phone Radha Armstrong Unavailable Unavailable Procedures Procedure Date OFFICE/OUTPATIENT VISIT, EST TRANSVAGINAL US, NON-OB US EXAM, PELVIC, LIMITED PREV VISIT, EST, AGE 18-39 OBTAINING PAP SMEAR BUNDLED SERVICE TRANSVAGINAL US, NON-OB US PELVIC, OB OR NON OB LTD OR COMPLETE With Or Without DOPPLER OFFICE/OUTPATIENT VISIT, NEW OBSERVATION CARE DISCHARGE OFFICE/OUTPATIENT VISIT, EST INITIAL OBSERVATION CARE Advance Directives Directive Yes / No Effective Date File Name No Information Encounters Encounter Description Practice Location Reason(s) For Visit Diagnoses Date Provider Providers Copied on Encounter OFFICE/OUTPAT IENT VISIT, EST [facility], [address], [place], [place], [id number], [place] tel:[phone] [facility] No Information Nathaniel Garcia. [address], [place], [id number], [place]. tel:[phone] Referring Provider: Radha Armstrong, [address], [place], [address]. tel:[phone] [facility], [address], [place], [place], [id number], [place] tel:[phone] [facility] No Information Nathaniel Garcia. [address], [place], [id number], [place]. tel:[phone] Referring Provider: Radha Armstrong, [address], [place], [address]. tel:[phone] PREV VISIT, EST, AGE 18-39 [facility], [address], [place], [place], [id number], [place] tel:[phone] [facility] No Information Nathaniel Garcia. [address], [place], [id number], [place]. tel:[phone] Referring Provider: Radha Armstrong, [address], [place], [address]. tel:[phone] [facility], [address], [place], [place], [id number], [place] tel:[phone] [facility] No Information Nathaniel Garcia. [address], [place], [id number], [place]. tel:[phone] Referring Provider: Radha Armstrong, [address], [place], [address]. tel:[phone] OFFICE/OUTPAT IENT VISIT, [facility], [address], [place], [place], [id number], [place] tel:[phone] [facility] No Information Nathaniel Garcia. [address] [place], [id number], [place]. tel:[phone] Referring Provider: Radha Armstrong, [place], [address]. tel:[phone] OBSERVATION CARE [facility], [address], [place], [place], [id number], [place] tel:[phone] [facility] No Information Ruby Guzman. [address], [place], [id number], [place]. tel:[phone] Referring Provider: Thomas Beltran MD, [address] [place], [address]. tel:[phone] OFFICE/OUTPAT IENT VISIT, [facility], [address], [place], [place], [id number], [place] tel:[phone] [facility] No Information Nathaniel Garcia. [address] [place] [address] , [place], [place], [id number], [place]. tel:[phone] Referring Provider: Radha Armstrong, [address] [place] [address] , [place], [address]. tel:[phone] INITIAL OBSERVATION CARE [facility], [address], [place], [place], [id number], [place] tel:[phone] [facility] No Information Kevin Scott. [address], [place], [id number], [place]. tel:[phone] Referring Provider: Tyler Brown, [address] [place], [address]. tel:[phone] Family History Family Member Type Diagnosis Age At Onset No Information Payers Payer name Insurance type Covered libertarian ID Samantha costa(angela MARTINEZ [id number] Social History Type Description Quantity Date Captured Comments Sex Female Smoking Status No Information Chief Complaint And Reason For Visit No Information Reason For Referral Reason For Referral No Information History Of Present Illness Encounter Date Complaint History Of Prese nt Illness No Information Functional Status Date Functional Assessmen t No Information Instructions Date Instruction Additional Infor mation No Information Assessments Type Assessment Date No Information Patient Care Teams Name Effective Dates (start - stop) Status Members No Information
[2025-07-08 07:27] VITALS: BP 136/96; PULSE 94; TEMP 36.7; O2SAT 97; BMI 53.7
--- NOTE | 2025-07-08 07:36 | CT_ITS ---
The [address] [address] Patient Name: ARCHANA ABRAMS MRN: [id number] date: 1985 Sex: F Assigned Patient Location: ER Current Patient Location: ER Accession/Order Number: [id number] Exam Date: 07/08/2025 07:48 Report Date: 07/08/2025 08:33 At the request of: MICHAEL CHOI MD Procedure: CT abdomen pelvis wo con CT ABDOMEN AND PELVIS WITHOUT INTRAVENOUS CONTRAST: CLINICAL HISTORY: right flank pain, r/o stone COMPARISON: None TECHNIQUE: Spiral images were obtained through the abdomen and pelvis without intravenous contrast. This CT exam was performed using one or more following dose reduction techniques: Automated exposure control, adjustment of the mA and/or kV according to patient size, or use of iterative reconstruction technique. FINDINGS: Lung Bases: [No focal opacity.] Organs:Fatty infiltration liver. Focal fatty sparing gallbladder fossa. Otherwise liver, spleen, adrenals, kidneys, pancreas unremarkable. Negative for nephrolithiasis. No hydronephrosis.[ GI: Mild retained stool. No bowel obstruction appendix is unremarkable. Pelvis:[Uterus and adnexa are unremarkable.. No adnexal mass. Bladder is grossly unremarkable.] Peritoneum/Retroperitoneum:No free air or fluid. Aorta normal caliber.[ Abd wall/Bones:Degenerative changes lower lumbar spine with prominent disc osteophyte complex L4-5.[ CT/CT abdomen pelvis wo con IMPRESSION: Negative for nephrolithiasis or obstructive uropathy. Negative acute inflammatory process or bowel obstruction Impression dictated by: Bulmaro Matta M.D. 07/08/2025 8:33 AM Dictation Location: [place] [address] Electronically authenticated by: [id number] Y Date: 07/08/2025 08:33
--- NOTE | 2025-07-08 07:36 | ED.GENADUL1 ---
HPI HPI - General Adult General Chief complaint: Back Pain/Injury Stated complaint: BACK AND SIDE PAIN Time Seen by Provider: 07/08/25 07:27 Source: patient Mode of arrival: walk-in Limitations: no limitations History of Present Illness HPI narrative: 39-year-old female presents to the emergency department for right flank pain and back pain. She has had this right flank pain for about a week and it seems to wax and wane. Her back has been hurting for a few days as well. No dysuria or hematuria or unusual activity or injury. No history of kidney stones. Related Data Home Medications ?Medication ?Instructions ?Recorded ?Confirmed citalopram 20 mg tablet (Celexa) 20 mg PO DAILY 02/08/25 07/08/25 lorazepam 0.5 mg tablet 0.5 mg PO Q12H PRN anxiety 05/19/25 07/08/25 Previous Rx's ?Medication ?Instructions ?Recorded ibuprofen 800 mg tablet 800 mg PO Q8H PRN pain #20 tabs 07/08/25 methocarbamol 750 mg tablet 750 mg PO Q8H #20 tabs 07/08/25 Allergies Allergy/AdvReac Type Severity Reaction Status Date / Time No Known Drug Allergies Allergy Verified 07/08/25 07:27 Opioid HPI Opioid Management Most Recent Opioid Data: Last Pain Scale 7 Today, 07:34 Ur Phencyclidine Scrn, (NEGATIVE) Negative 04/08/25, 09:28 Review of Systems ROS Narrative A ten point review of systems is negative except as noted above. PFSH PFSH Social History Little interest or pleasure in doing things: not at all Feeling down, depressed, or hopeless: not at all Exam Narrative Exam Narrative: Nurses note and vital signs reviewed and patient is not hypoxic. General:The patient appears well and in no apparent distress.Patient is resting comfortably on cart. Skin:Warm, dry, no pallor noted.There is no rash noted. Head:Normocephalic, atraumatic Eye: Normal conjunctiva, no drainage Ears, Nose, Mouth, and Throat: oral mucosa is moist. Nares patent. Cardiovascular:Regular Rate and Rhythm Respiratory:Patient is in no distress, no accessory muscle use, lungs are clear to auscultation, no wheezing, rales or rhonchi Back: No bruise or rash including in the flank area. There is no focal area of tenderness to palpation. No erythema. GI: Obese and nontender Musculoskeletal: The patient has no evidence of calf tenderness, no pitting edema, symmetrical pulses noted bilaterally Neurological: Awake and alert Psychiatric:Cooperative Constitutional Vital Signs, click to edit/add: Last Vital Signs Temp 98.1 F 07/08/25 07:27 Pulse 94 H 07/08/25 07:27 Resp 18 07/08/25 07:27 BP 136/96 H 07/08/25 07:27 Pulse Ox 97 07/08/25 07:27 O2 Del Method Room Air 07/08/25 07:27 Course Vital Signs Vital signs: Vital Signs Temperature 98.1 F 07/08/25 07:27 Pulse Rate 94 H 07/08/25 07:27 Respiratory Rate 18 07/08/25 07:27 Blood Pressure 136/96 H 07/08/25 07:27 Pulse Oximetry 97 07/08/25 07:27 Oxygen Delivery Method Room Air 07/08/25 07:27 Temperature 98.1 F 07/08/25 07:27 Pulse Rate 94 H 07/08/25 07:27 Respiratory Rate 18 07/08/25 07:27 Blood Pressure 136/96 H 07/08/25 07:27 Pulse Oximetry 97 07/08/25 07:27 Oxygen Delivery Method Room Air 07/08/25 07:27 Medical Decision Making MDM Narrative Medical decision making narrative: Urinalysis is negative and CAT scan is negative as well. No evidence of kidney stone. She does not have a rash but was cautioned if she develops a rash to seek medical care. She will be treated for muscle pain in the meantime. Treatment diagnosis and follow-up were discussed with the patient. Differential Diagnosis Differential Diagnosis: Muscle strain, kidney stone, UTI, shingles Lab Data Lab results reviewed: Yes I reviewed the patient's lab results Labs: Lab Results 07/08/25 Range/Units 09:11 Urine Color Yellow (YELLOW) Urine Clarity Clear (CLEAR) Urine pH 6.5 (5.0-9.0) Ur Specific [place] 1.020 (1.005-1.025) Urine Protein Negative (NEG/TRACE) mg/dL Urine Glucose (UA) Negative (NEGATIVE) mg/dL Urine Ketones Negative (NEGATIVE) mg/dL Urine Occult Blood Small A (NEGATIVE) Urine Nitrite Negative (NEGATIVE) Urine Bilirubin Negative (NEGATIVE) Urine Urobilinogen 0.2 (0.2-1.0) EU/dL Ur Leukocyte Esterase Negative (NEGATIVE) Urine RBC 2-5 A (0-2) #/HPF Urine WBC 0-2 A (NONE SEEN) #/HPF Ur Squamous Epith Cells Few A (NONE/RARE) #/LPF Urine Crystals None seen (None Seen) #/HPF Urine Bacteria Small A (NONE SEEN) #/HPF Urine Casts None seen (NONE SEEN) #/LPF Urine Mucus None seen (NONE SEEN) Ur Culture Indicated? Yes[place] CT scan - abdomen: Radiologist's impression: ITS Impressions Abdomen/Pelvis CT 07/08/25 07:36 IMPRESSION: Negative for nephrolithiasis or obstructive uropathy. Negative acute inflammatory process or bowel obstruction Impression dictated by: Bulmaro Matta M.D. 07/08/2025 8:33 AM Dictation [facility] Electronically authenticated by: [id number] Y Date: 07/08/2025 08:33 Discharge Plan Discharge Chief Complaint: Back Pain/Injury Clinical Impression: Right flank pain Patient Disposition: Home, Self-Care Time of Disposition Decision: 09:57 Condition: Good Mode of Transportation: Private Vehicle Prescriptions / Home Meds: New ibuprofen 800 mg tablet 800 mg PO Q8H PRN (Reason: pain) Qty: 20 0RF methocarbamol 750 mg tablet 750 mg PO Q8H Qty: 20 0RF No Action lorazepam 0.5 mg tablet 0.5 mg PO Q12H PRN (Reason: anxiety) citalopram [Celexa] 20 mg tablet 20 mg PO DAILY Print Language: Tajik Instructions: Flank Pain (ED) Referrals: Steve Zheng MD [Primary Care Provider] - 1 week
--- OUTSIDE RECORDS SUMMARY | 2025-07-08 07:36 | XMS_ITS | Clinical Summary ---
Author Organization [employer] Address [id number] [address] [place] [address] Care Team Providers Care Physical Therapy Attendant Name Role Phone Steve Zheng MD Primary Care Provider [phone]- [phone] Allergies Active Allergy Reactions Criticality Noted Date Comments Nickel Rash Low 06/26/2022 No breathing issues, found through skin allergy testing Medications naproxen sodium (ALEVE) 220 mg tablet Take 1 tablet (220 mg total) by mouth in the morning and 1 tablet (220 mg total) in the evening. Take with meals. Active Active Problems Problem Noted Date Diagnosed Date Chest pain, unspecified type 07/14/2023 Pelvic pain 06/18/2022 COVID-19 03/28/2021 Chest pain 03/27/2021 Hyperinsulinemia 06/29/2017 Abnormal uterine bleeding (AUB) 05/04/2017 PCOS (polycystic ovarian syndrome) 05/04/2017 BMI 50.0-59.9, adult 05/04/2017 Insulin resistance 05/04/2017 Resolved Problems Problem Noted Date Diagnosed Date Resolved Date Cysts of both ovaries 06/18/20222021 Immunizations No known immunizations Family History Medical History Relation Name Comments Back Problems Brother Hepatitis Brother Back Problems Father Heart disease Father No Known Problems Maternal Grandfather No Known Problems Maternal Grandmother Depression Mother Kidney disease Mother Heart disease Paternal Grandfather Hypertension Paternal Grandfather Heart disease Paternal Grandmother Hypertension Paternal Grandmother Anesthesia problems Neg Hx Relation Name Status Comments Brother Alive Father Alive Maternal Grandfather Maternal Grandmother Alive Mother Alive Paternal Grandfather Paternal Grandmother Social History Tobacco Use Types Packs/Day Years Used Date Smoking Tobacco: Never Smokeless Tobacco: Never Alcohol Use Standard Drinks/Week Comments Not Currently 0 (1 standard drink = 0.6 oz pur e alcohol) occasionaly Social Connection and Isolation Panel [NHANES] A nswer Date Recorded In a typical week, how many times do you talk on the phone with family, friends, or neighbors? Three times a week 03/27/2021 How often do you get togethe r with friends or relatives? Twice a week 03/27/2021 How often do you attend chur ch or adventism services? Never 03/27/2021 Do you belong to any clubs o r organizations such as christian groups, unions, fraternal or athletic groups, or school groups? No 03/27/2021 How often do you attend meet ings of the clubs or organizations you belong to? Never 03/27/2021 Are you , , di vorced, , never , or living with a partner? Never 03/27/2021 AUDIT-C Answer Date Recorded Q1: How often do you have a drink containing alc ohol? Monthly or less 03/27/2021 Q2: How many drinks containi ng alcohol do you have on a typical day when you are drinking? 1 or 2 03/27/2021 Q3: How often do you have si x or more drinks on one occasion? Never 03/27/2021 Overall Financial Resource Strain (CARDIA) Answe r Date Recorded How hard is it for you to pa y for the very basics like food, housing, medical care, and heating? Not hard at all 03/27/2021 Exercise Vital Sign Answer Date Recorde d On average, how many days pe r week do you engage in moderate to strenuous exercise (like a brisk walk)? 0 days 03/27/2021 On average, how many minutes do you engage in exercise at this level? 0 min 03/27/2021 PRAPARE - Transportation Answer Date Re corded In the past 12 months, has l ack of transportation kept you from medical appointments or from getting medications? No 02/28 In the past 12 months, has l ack of transportation kept you from meetings, work, or from getting things needed for daily living? No 03/27/2021 Housing Instability Answer Date Recorde d Are you worried or concerned that in the next two months you may not have stable housing that you own, rent or stay in as a part of a household? No 07/15/2023 Childcare Answer Date Recorded Childcare Unknown 03/08/2019 Employment Answer Date Recorded Do you need help finding a [facility] career center and/or a training program? No 03/27/2021 Hunger Screening Answer Date Recorded Within the past 12 months we worried whether our food would run out before we got money to buy more. Never True 10/09/2023 Within the past 12 months th e food we bought just didn't last and we didn't have money to get more. Never True 10/09/2023 Purpose - Life Answer Date Recorded Purpose and direction in life Unknown Comments No Sex and Gender Information Value Date Recorded Sex Assigned at Female 04/10/2022 9:42 PM EDT Legal Sex Female 5:58 PM EDT Gender Identity Female 04/10/2022 9:42 PM EDT Sexual Orientation Straight 04/10/2022 9: 42 PM EDT Last Filed Vital Signs Vital Sign Reading Time Taken Comments Blood Pressure 150/104 02/10/2024 12:37 PM EDT Pulse 98 02/10/2024 12:37 PM EDT Temperature 36.4 C (97.6 F) 02/10/2024 12:37 PM EDT Respiratory Rate 18 02/10/2024 12:37 PM EDT Oxygen Saturation 98% 02/10/2024 12:37 PM EDT Inhaled Oxygen Concentration - - Weight 164 kg (361 lb 8 oz) 10/09/2023 2:[address] Height 180.3 cm (5' 10.98 ) 10/09/2023 2:[address] Body Mass Index 50.45 10/09/2023 2:30 PM EST Plan of Treatment Health Maintenance Due Date Last Done Comments Depression Screening 1995 Pap Smear 12/07/2004 Adult BMI Screening 10/09/2024 10/09/2023 Tobacco Screening 02/09/2025 02/10/2024 DTaP,Tdap and Td Vaccines (2 - Td or Tdap) 02/16/2025 02/16/2015 Influenza Vaccine 05/29/2025 Goals Goal Patient Goal Type Associated Problems Recent Progress Patient-Stated? Author safe discharge to home General Yes Monisha Cedillo, NASIR Note: Evaluation of progress towards goal: safe transition from hospital to home with parents and family support. Medical Devices Not on file Insurance [facility] [place] ANTH Advance Directives * Full Code (Latest Code Status on File) Date Activated Date Inactivated Comments 07/14/2023 11:52 PM 07/17/2023 6:02 PM * Full Code Date Activated Date Inactivated Comments 03/27/2021 8:15 AM 03/28/2021 7:58 PM Care Teams Physical Therapy Attendant Relationship Specialty Start Date End Date Steve Zheng MD [address] [place] [address] PCP - General Family Medicine 02/10/19
--- OUTSIDE RECORDS SUMMARY | 2025-07-08 07:36 | XMS_ITS | Encounter Summary ---
Author Organization [facility] [employer] Address [id number] [address] [place] [address] Care Team Providers Care Soldering Machine Tender Name Role Phone Steve Zheng MD Primary Care Provider [phone]- [phone] Reason for Referral * Diagnostic Imaging (Routine) - Closed Specialty Diagnoses / Procedures Referred By Contac t Referred To Contact Radiology Diagnoses Pain Procedures CT cervical spine without contrast [facility] [address] [place] [phone] Phone: tel: fax: Referral ID Status Reason Start Date Expiration Date Visits Re quested Visits Authorized [id number] Closed 06/11/2022 06/11/2023 1 1 * Diagnostic Imaging (Routine) - Closed Specialty Diagnoses / Procedures Referred By Contac t Referred To Contact Radiology Diagnoses Pain Procedures CT abdomen and pelvis with contrast [facility] [address] [place] [phone] Phone: tel: fax: Referral ID Status Reason Start Date Expiration Date Visits Re quested Visits Authorized [id number] Closed 06/11/2022 06/11/2023 1 1 Encounter Details Date Type Department Care Team (Late st Contact Info) Description 06/11/2022 Orders Only [facility] [address] [place] [phone] Transcribe, Orders Support User Pain (Primary Dx) Social History Tobacco Use Types Packs/Day Years Used Date Smoking Tobacco: Never Smokeless Tobacco: Never Alcohol Use Standard Drinks/Week Comments Yes 0 (1 standard drink = 0.6 oz [...] often do you attend chur ch or yazidi services? Never 03/27/2021 Do you belong to any clubs o r organizations such as mu-ism groups, unions, fraternal or athletic groups, or [...] things needed for daily living? No 03/27/2021 Childcare Answer Date Recorded Childcare Unknown 03/08/2019 Employment Answer Date Recorded Do you need help finding a [facility] career center and/or a training program? No 03/27/2021 Purpose - Life Answer Date Recorded Purpose and direction in life Unknown Comments No Sex and Gender Information Value Date Recorded Sex Assigned at Female 04/10/2022 9:42 PM EDT Legal Sex Female 5:58 PM EDT Gender Identity Female 04/10/2022 9:42 PM EDT Sexual Orientation Straight 04/10/2022 9: 42 PM EDT COVID-19 Exposure Response Date Recorded In the last month, have you been in contact with someone who was confirmed or suspected to have Coronavirus / COVID-19? No / Unsure 06/12/2022 9:58 AM EDT documented as of this encounter Plan of Treatment Not on file documented as of this encounter Results * CT abdomen and pelvis with contrast (06/10/2022 5:00 PM EDT) us Scanning Provider External IMG CT ORDERABLES Fin al Result * CT cervical spine without contrast (10/25/2016 9:15 AM EST) us Scanning Provider External IMG CT ORDERABLES Fin al Result documented in this encounter Visit Diagnoses Diagnosis Pain- Primary Generalized pain documented in this encounter Additional Health Concerns Infection Onset Date Last Indicated Resolved Time COVID-19 Rule-Out 07/15/2023 07/15/2023 07/15/2023 1:31 AM EDT documented as of this encounter Care Teams Soldering Machine Tender Relationship Specialty Start Date End Date Steve Zheng MD [address] [place] [address] PCP - General Family Medicine 02/10/19 documented as of this encounter
--- OUTSIDE RECORDS SUMMARY | 2025-07-08 07:36 | XMS_ITS | Encounter Summary ---
Author Organization [employer] Address [id number] [address] [place] [address] Care Team Providers Care Post Hole Digging Machine Operator Name Role Phone Steve Zheng MD Primary Care Provider [phone]- [phone] Encounter Details Date Type Department Care Team (Late st Contact Info) Description 06/23/2022 Orders Only [facility] [address] [place] [address] [address] [place] [address] Tal Mendez MD [id number] [facility] [place] [address] Social History Tobacco Use Types Packs/Day Years [...] often do you attend chur ch or taoism services? Never 03/27/2021 Do you belong to any clubs o r organizations such as rastafari groups, unions, fraternal or athletic groups, or [...] Recorded Do you need help finding a [facility] career center and/or a training program? [...] have Coronavirus / COVID-19? No / Unsure 06/26/2022 1:19 PM EDT documented as of this encounter Plan of Treatment Not on file documented as of this encounter Visit Diagnoses Not on filedocumented in this encounter Additional Health Concerns Infection Onset Date Last Indicated Resolved Time COVID-19 Rule-Out 07/15/2023 07/15/2023 07/15/2023 1:31 AM EDT Assessment Noted Time A Body Mass Index follow-up plan has been documented for the patient 06/12/2022 12:46 PM EDT documented as of this encounter Care Teams Post Hole Digging Machine Operator Relationship Specialty Start Date End Date Steve Zheng MD [address] [place] [address] PCP - General Family Medicine 02/10/19 documented as of this encounter
--- OUTSIDE RECORDS SUMMARY | 2025-07-08 07:36 | XMS_ITS | CCD ---
Author Organization [facility] Care Team Providers Care Staff Occupational Therapist Name Role Phone NIMCO AMBER METCALF Unavailable Unavailable ARTEMIO MCGUIRE Admitting Unavailable SELF, REFERRED Primary Care Unavailable SELF, REFERRED Referring Unavailable MATTHEW LYNCH Attending Unavailable Po JAIMES, Neptali A Primary Care Provider [phone] Po JAIMES, Neptail Reeves Primary Care Provider [phone] PO, NEPTALI A Primary Care Unavailable ANTONETTE [...] JAIMES, Neptali A Primary Care Provider [phone] Allergies Allergy Classification Reported Allergen(s) Allergy Type [...] (RBC) [Ratio] 14.5 % Normal 11.5-15.0 [facility] Comment on above: Performed By: #### C MP, CBC #### [facility] ([id number]) [address], [address] [place] [address] Hematocrit (Bld) [Volume fraction] 38.5 % Normal 35-47 [facility] Comment on above: Performed By: #### C MP, CBC #### [facility] ([id number]) [address], [address] [place] [address] Hemoglobin (Bld) [Mass/Vol] 13.4 g/dL Normal 11.7-15.5 [facility] Comment on above: Performed By: #### C MP, CBC #### [facility] ([id number]) [address], [address] [place] [address] MCH (RBC) [Entitic mass] 29.7 pg Normal 27-34 [facility] Comment on above: Performed By: #### C MP, CBC #### [facility] ([id number]) [address], [address] [place] [address] MCHC (RBC) [Mass/Vol] 34.7 g/dL Normal 32-36 [facility] Comment on above: Performed By: #### C MP, CBC #### [facility] ([id number]) [address], [address] [place] [address] MCV (RBC) [Entitic vol] 86 fL Normal 80-100 P [facility] Comment on above: Performed By: #### C MP, CBC #### [facility] ([id number]) [address] [place] [address] Platelet mean volume (Bld) [Entitic vol] 7.7 fL Normal 7-12 [facility] Comment on above: Performed By: #### C MP, CBC #### [facility] ([id number]) [address], [address] [place] [address] Platelets (Bld) [#/Vol] 222 10*3/uL Normal 150-450 [facility] Comment on above: Performed By: #### C MP, CBC #### [facility] ([id number]) [address], [address] [place] [address] RBC COUNT 4.50 X10E12/L Normal 3.80-5.20 [facility] Comment on above: Performed By: #### C MP, CBC #### [facility] ([id number]) [address], [address] [place] [address] WBC (Bld) [#/Vol] 9.1 10*3/uL Normal 4.0-11.0 [facility] Comment on above: Performed By: #### C MP, CBC #### [facility] ([id number]) [address] [place] [address] COMPREHENSIVE METABOLIC PANE Vitor 07-04-2024 Albumin [Mass/Vol] 3.8 g/dL Normal 3.2-5.3 [facility] Comment on above: Performed By: #### C MP, CBC #### [facility] ([id number]) [address], [address] [place] [address] ALP [Catalytic activity/Vol] 62 U/L Normal 39-130 [facility] Comment on above: Performed By: #### C MP, CBC #### [facility] ([id number]) [address], [address] [place] [address] ALT [Catalytic activity/Vol] 14 U/L Normal 0-31 [facility] Comment on above: Performed By: #### C MP, CBC #### [facility] ([id number]) [address] [place] [address] Anion gap [Moles/Vol] 11 mmol/L Normal 5-15 [facility] Comment on above: Performed By: #### C MP, CBC #### [facility] ([id number]) [address], [address] [place] [address] AST [Catalytic activity/Vol] 14 U/L Normal 0-41 [facility] Comment on above: Performed By: #### C MP, CBC #### [facility] ([id number]) [address] [place] [address] Bilirubin [Mass/Vol] 0.4 mg/dL Normal 0.3-1.2 [facility] Comment on above: Performed By: #### C CAPRICE, CBC #### [facility] ([id number]) [address] [place] [address] Calcium [Mass/Vol] 8.6 mg/dL Normal 8.5-10.5 [facility] Comment on above: Performed By: #### C MP, CBC #### [facility] ([id number]) [address] [place] [address] Chloride [Moles/Vol] 105 mmol/L Normal 98-109 [facility] Comment on above: Performed By: #### C MP, CBC #### [facility] ([id number]) [address] [place] [address] CO2 [Moles/Vol] 24 mmol/L Normal 22-32 [facility] Comment on above: Performed By: #### C MP, CBC #### [facility] ([id number]) [address] [place] [address] Creatinine [Mass/Vol] 0.51 mg/dL Normal 0.40-1.00 [facility] Comment on above: Result Comment: METH OD TRACEABLE TO IDMS STANDARD Performed By: #### C MP, CBC #### [facility] ([id number]) [address] [place] [address] eGFR (CKD-EPI) NON-RACE DEPENDENT >90 Normal >59 [facility] Comment on above: Result Comment: Reported eGFR is based on the CKD-EPI 2020 equation that does not use a race coefficient. Performed By: #### C MP, CBC #### [facility] ([id number]) [address], [address] [place] [address] Glucose [Mass/Vol] 97 mg/dL Normal 65-99 [facility] Comment on above: Performed By: #### C MP, CBC #### [facility] ([id number]) [address] [address] [place] [address] Potassium [Moles/Vol] 3.5 mmol/L Normal 3.5-5.0 [facility] Comment on above: Performed By: #### C MP, CBC #### [facility] ([id number]) [address] [place] [address] Protein [Mass/Vol] 6.9 g/dL Normal 6.0-8.0 [facility] Comment on above: Performed By: #### C MP, CBC #### [facility] ([id number]) [address] [address] [place] [address] Sodium [Moles/Vol] 140 mmol/L Normal 134-146 [facility] Comment on above: Performed By: #### C MP, CBC #### [facility] ([id number]) [address], [address] [place] [address] Urea nitrogen [Mass/Vol] 8 mg/dL Normal 5-23 [facility] Comment on above: Performed By: #### C MP, CBC #### [facility] ([id number]) [address] [place] [address] URINALYSISon 07-04-2024 Bilirubin Ql (U) Negative Normal NEG [facility] Comment on above: Performed By: #### U A #### [facility] ([id number]) [address] [place] [address] BLOOD/HGB Small Abnormal NEG [facility] Comment on above: Performed By: #### U A #### [facility] ([id number]) [address] [place] [address] Color (U) YELLOW Normal YELLOW [facility] Comment on above: Performed By: #### U A #### [facility] ([id number]) [address] [place] [address] Glucose Ql (U) Negative Normal NEG [facility] Comment on above: Performed By: #### U A #### [facility] ([id number]) [address] [place] [address] Ketones Ql (U) Negative Normal NEG [facility] Comment on above: Performed By: #### U A #### [facility] ([id number]) [address] [place] [address] Leukocyte esterase Test strip Ql (U) Negative Normal NEG [facility] Comment on above: Performed By: #### U A #### [facility] ([id number]) [address] [place] [address] MUCOUS PRESENT Abnormal NONE [facility] Comment on above: Performed By: #### U A #### [facility] ([id number]) [address] [place] [address] Nitrite Ql (U) Negative Normal NEG [facility] Comment on above: Performed By: #### U A #### [facility] ([id number]) [address] [place] [address] pH (U) 6.5 [pH] Normal 5.0-8.5 [facility] Comment on above: Performed By: #### U A #### [facility] ([id number]) [address] [place] [address] Protein Ql (U) Trace Abnormal NEG [facility] Comment on above: Performed By: #### U A #### [facility] ([id number]) [address] [place] [address] R.B.CELLS 3 /hpf Normal 0-5 [facility] Comment on above: Performed By: #### U A #### [facility] ([id number]) [address] [place] [address] Specific gravity (U) [Rel density] 1.017 Normal 1.003-1.035 [facility] Comment on above: Performed By: #### U A #### [facility] ([id number]) [address] [place] [address] SQUAMOUS EPITHELIUM 4 /hpf Normal 0-5 [facility] Comment on above: Performed By: #### U A #### [facility] ([id number]) [address] [place] [address] TURBIDITY CLEAR Normal CLEAR [facility] Comment on above: Performed By: #### U A #### [facility] ([id number]) [address] [place] [address] Urobilinogen (U) [Mass/Vol] mg/dL Normal <1.1 [facility] Comment on above: Performed By: #### U A #### [facility] ([id number]) [address] [place] [address] W.B.CELLS 3 /hpf Normal 0-5 [facility] Comment on above: Performed By: #### U A #### [facility] ([id number]) [address] [facility] [facility] [place] [address] XR ANKLE RT MIN 3 VWSon 01-26 [...] MD on 02/10/2024 1:50 PM Normal [facility] XR FOOT RT MIN 3 VWSon 02-09 [...] MD on 02/10/2024 1:57 PM Normal [facility] XR CHEST 2 VWSon 10-12-2023 XR CHEST [...] MD on 10/12/2023 3:31 PM Normal [facility] Measles (Rubeola) Imon 06-01 Measles (Rubeola) Im 1.74 Normal >1.09 [facility] Comment on above: Result Comment: Interpretation: IMMUNE Reference Range: <0.91 Not Immune 0.91-1.09 Equivocal >1.09 Immune Performed By: #### C OVRB #### [facility] [address] [place] [address] [place] [address] Graphics Intern: Carlos Mckoy MD Mumps,Immun,Abon 06-01-2023 Mumps,Immun,Ab 2.34 Normal >1.09 [facility] Comment on above: Result Comment: Interpretation: IMMUNE Reference Range: <0.91 Not Immune 0.91-1.09 Equivocal >1.09 Immune Performed By: #### C OVRB #### [address] [place], [place] [id number] Graphics Intern: Carlos Mckoy MD VZ Immunityon 06-01-2023 VZ Immunity 1.21 Normal >1.09 [facility] Comment on above: Result Comment: Interpretation: IMMUNE Reference Range: <0.91 Not Immune 0.91-1.09 Equivocal >1.09 Immune Performed By: #### C OVRB #### [address] [place] [address] Graphics Intern: Carlos Mckoy MD Hep B Surf Abon 05-30-2023 Hep B Surf Ab 213.00 mIU/mL High <10 [facility] Comment on above: Result Comment: REFERENCE [...] infection. Performed By: #### C OVRB #### [facility] [address] [place] [address] Graphics Intern: Carlos Mckoy MD Rubella Ab, IgGon 05-30-2023 Rubella Ab, IgG >500.0 Normal [facility] Comment on above: Result Comment: REFERENCE RANGE: <5.0 NON-REACTIVE (non-immune) 5.0 TO 9.9 EQUIVOCAL >=10.0 REACTIVE (immune) Performed By: #### C OVRB #### [facility] [address] [place] [address] Graphics Intern: Carlos Mckoy MD COVID-19, Rapidon 09-20-2022 SARS-CoV-2 (COVID-19) RNA JEAN MARIE+probe Ql (Unsp spec) Not detected Not Detected [facility] Comment on above: Rapid NAAT: The specimen [...] management decisions. Fact sheet for Healthcare Providers: https://www.fda.gov/media/736742/download Fact sheet for Patients: https://www.fda.gov/media/990138/download Methodology: Isothermal Nucleic Acid Amplification Specimen Description .NASOPHARYNGEAL SWAB [facility] Flu A/B Ag Detectionon 09-20 Flu A Ag Detection Positive Abnormal NEG [facility] Comment on above: Result Comment: for Influenza A Antigen Performed By: #### F LUABA #### [facility] [address] [place] [address] Graphics Intern: Carlos Mckoy MD Flu B Ag Detection Negative Normal NEG [facility] Comment on above: Result Comment: for Influenza B Antigen. Performed By: #### F LUABA #### [facility] [address] [place] [address] Graphics Intern: Carlos Mckoy MD Rapid influenza A/B antigens on 09-20-2022 Flu A Antigen Positive Abnormal NEGATIVE [facility] Comment on above: for Influenza A Anti gen Flu B Antigen Negative NEGATIVE [facility] Comment on above: for Influenza B Anti gen. Interpretation and review of laboratory results Abnormal [facility] [id number]-MiH-2ob 09-20-2022 SARS-CoV-2 (COVID-19) RNA JEAN MARIE+probe Ql (Unsp spec) Not detected Normal NOTDET [facility] Comment on above: Result Comment: Rapid [...] management decisions. Fact sheet for Healthcare Providers: https://www.fda.gov/media/831603/download Fact sheet for Patients: https://www.fda.gov/media/136674/download Methodology: Isothermal Nucleic Acid Amplification Performed By: #### C OVRB #### [facility] [address] [place] [address] Graphics Intern: Carlos Mckoy MD Strep Gr A Direct Agon 09-20 Strep Gr A Direct Ag Negative Normal NEG [facility] Comment on above: Result Comment: Rapi d Strep A negative. A negative Rapid Group A Strep Screen result does not rule out the possibility of Group A Streptococci in the specimen. A Group A Strep DNA test is available upon request. Performed By: #### C OVRB #### [facility] [address] [place] [address] Graphics Intern: Carlos Mckoy MD Source .THROAT SWAB Normal [facility] Comment on above: Performed By: #### C OVRB #### [facility] [address] [place] [address] Graphics Intern: Carlos Mckoy MD Strep Screen Group A Throato n 09-20-2022 S. pyogenes Ag Ql (Throat) Negative NEGATIVE [facility] Comment on above: Rapid Strep A negati ve. A negative Rapid Group A Strep Screen result does not rule out the possibility of Group A Streptococci in the specimen. A Group A Strep DNA test is available upon request. Source .THROAT SWAB [facility] XR CHEST (SINGLE VIEW FRONTA [...] Denis Brannon MD 09/20/22 Final result Normal [facility] No acute cardiopulmonary abnormality. [facility] RIS CONSOLIDATED EXAMINATION: ONE XRAY VIEW OF THE CHEST 09/20/2022 1:34 am COMPARISON: 12/22/2017 HISTORY: ORDERING SYSTEM PROVIDED HISTORY: sob cough TECHNOLOGIST PROVIDED HISTORY: sob cough FINDINGS: The lungs are clear. The cardiac and mediastinal contours are normal. There is no pleural effusion or pneumothorax. No acute osseous abnormality is identified. [facility] RIS CONSOLIDATED Denis Brannon MD - 09/20/2022 EXAMINATION: ONE XRAY VIEW OF THE CHEST 09/20/2022 1:34 am COMPARISON: 12/22/2017 HISTORY: ORDERING SYSTEM PROVIDED HISTORY: sob cough TECHNOLOGIST PROVIDED HISTORY: sob cough FINDINGS: The lungs are clear. The cardiac and mediastinal contours are normal. There is no pleural effusion or pneumothorax. No acute osseous abnormality is identified. IMPRESSION: No acute cardiopulmonary abnormality. [employer] Phone: Radiology Study observation (narrative) [employer] Phone: XR CHEST (SINGLE VIEW FRONTA L)Ordered By: Denis Brannon on 09-20-2022 [employer] Phone: US DUP ABD PEL RETRO SCROT [...] US in 3-6 months. Reference: Radiology 2019 Jul;293(0):[id number] Interpreted by: Denis Howe MD Signed by: Denis Howe MD 06/11/22 Final result Normal [facility] Basic Metabolic Panelon 05-29 Anion gap [Moles/Vol] 9 mmol/L 9 - 17 mmol/L [facility] Calcium [Mass/Vol] 9.9 mg/dL 8.6 - 10. 4 mg/dL [facility] Chloride [Moles/Vol] 102 mmol/L 98 - 10 7 mmol/L [facility] CO2 [Moles/Vol] 27 mmol/L 20 - 31 mmol/L [facility] Creatinine [Mass/Vol] 0.49 mg/dL Low 0.5 - 0.9 mg/dL [facility] GFR >60 60 - PI NF mL/min [facility] GFR Non- >60 60 - PINF mL/min [facility] Glucose [Mass/Vol] 101 mg/dL High 70 - 99 mg/dL [facility] Interpretation and review of laboratory results Abnormal [facility] Potassium [Moles/Vol] 4.0 mmol/L 3.7 - 5.3 mmol/L [facility] Sodium [Moles/Vol] 138 mmol/L 135 - 144 mmol/L [facility] Urea nitrogen (BldV) [Mass/Vol] 8 mg/dL 6 - 20 mg/dL [facility] Urea nitrogen/Creatinine (Bld) [Mass ratio] 16 9 - 20 [facility] Basic Metabolic Profon 06-10 (cont.) Normal [facility] Comment on above: Result Comment: Aver age GFR for 30-39 years old: 107 mL/min/1.73sq m Chronic Kidney Disease: <60 mL/min/1.73sq m Kidney failure: <15 mL/min/1.73sq m eGFR calculated using average adult body mass. Additional eGFR calculator available at: http://www.BUX.com/multiple_crcl_2012.htm Performed By: #### C OVRB #### [facility] [address] [place], [place] [id number] Graphics Intern: Carlos Mckoy MD Anion gap [Moles/Vol] 9 mmol/L Normal 9-17 [facility] Comment on above: Performed By: #### C OVRB #### [facility] [address] [place] [address] Graphics Intern: Carlos Mckoy MD BUN/CRE Ratio 16 Normal 9-20 [facility] Comment on above: Performed By: #### C OVRB #### [address] [place] [address] Graphics Intern: Carlos Mckoy MD Calcium [Mass/Vol] 9.9 mg/dL Normal 8.6-10.4 [facility] Comment on above: Performed By: #### C OVRB #### [address] [place] [address] Graphics Intern: Carlos Mckoy MD Chloride [Moles/Vol] 102 mmol/L Normal 98-107 [facility] Comment on above: Performed By: #### C OVRB #### [facility] [address] [place] [address] [place] [address] Graphics Intern: Carlos Mckoy MD CO2 [Moles/Vol] 27 mmol/L Normal 20-31 [facility] Comment on above: Performed By: #### C OVRB #### [facility] [address] [place] [address] Dr[address] [place], [place] [id number] Graphics Intern: Carlos Mckoy MD Creatinine [Mass/Vol] 0.49 mg/dL Low 0.50-0.90 [facility] Comment on above: Performed By: #### C OVRB #### [facility] [address] [place] [address] Dr. [place], [place] [id number] Graphics Intern: Carlos Mckoy MD GFR, Amer >60 Normal >60 [facility] Comment on above: Performed By: #### C OVRB #### [facility] [address] [place], [place] [id number] Graphics Intern: Carlos Mckoy MD GFR,non Amer >60 Normal >60 [facility] Comment on above: Performed By: #### C OVRB #### [facility] [address] [place] [id number] Graphics Intern: Carlos Mckoy MD Glucose [Mass/Vol] 101 mg/dL High 70-99 [facility] Comment on above: Performed By: #### C OVRB #### [facility] [address] [place] [address] Dr[place], [place] [id number] Graphics Intern: Carlos Mckoy MD Potassium [Moles/Vol] 4.0 mmol/L Normal 3.7-5.3 [facility] Comment on above: Performed By: #### C OVRB #### [facility] [address] [place] [address] Dr[place], [place] [id number] Graphics Intern: Carlos Mckoy MD Sodium [Moles/Vol] 138 mmol/L Normal 135-144 [facility] Comment on above: Performed By: #### C OVRB #### [facility] [address] [place], [place] [id number] Graphics Intern: Carlos Mckoy MD Staging: Normal [facility] Comment on above: Result Comment: Stag e 1: Some kidney damage normal GFR Stage 2: Mild kidney damage GFR 60-89 Stage 3: Moderate kidney damage GFR 30-59 Stage 4: Severe kidney damage GFR 15-29 Stage 5: Severe kidney damage GFR <15 ESRD - chronic treatment by dialysis or transplant Performed By: #### C OVRB #### [facility] [address] [place] [id number] Graphics Intern: Carlos Mckoy MD Urea nitrogen [Mass/Vol] 8 mg/dL Normal 6-20 [facility] Comment on above: Performed By: #### C OVRB #### [facility] [address] [place] [address] Graphics Intern: Carlos Mckoy MD CBC with Auto Differentialon 06-10-2022 Absolute Eos # 0.[address] [facility] Absolute Immature Granulocyte 0.12 [facility] Absolute Lymph # 3.13 [facility] Absolute [place] # 1.08 [facility] Basophils (Bld) [#/Vol] 0.07 10*3/uL [facility] Basophils/100 WBC (Bld) 1 % 0 - 2 % B ON [facility] Eosinophils/100 WBC (Bld) 3 % 1 - 4 % [facility] Hematocrit (Bld) [Volume fraction] 40.2 % 36.3 - 47.1 % [facility] Hemoglobin (Bld) [Mass/Vol] 13.2 g/dL 11.9 - 15.1 g/dL [facility] Immature granulocytes/100 WBC (Bld) 1 % High 0 [facility] Interpretation and review of laboratory results Abnormal [facility] Lymphocytes/100 WBC (Bld) 25 % 24 - 43 % [facility] MCH (RBC) [Entitic mass] 28.6 pg 25.2 - 33.5 pg [facility] MCHC (RBC) [Mass/Vol] 32.8 g/dL 28.4 - 34.8 g/dL [facility] MCV (RBC) [Entitic vol] 87.0 fL 82.6 - 102.9 fL [facility] Monocytes/100 WBC (Bld) 9 % 3 - 12 % B ON [facility] NRBC Automated 0.0 0.0 per 100 WBC [facility] Platelet distribution width (Bld) [Ratio] 13.7 % 11.8 - 14.4 % [facility] Platelet mean volume (Bld) [Entitic vol] 8.7 fL 8.1 - 13.5 fL [facility] Platelets (Bld) [#/Vol] 255 10*3/uL [facility] RBC (Bld) [#/Vol] 4.62 10*6/uL 3.95 - 5.1 1 m/uL [facility] Segmented neutrophils/100 WBC (Bld) 61 % 36 - 65 % [facility] Segs Absolute 7.56 [facility] WBC (Bld) [#/Vol] 12.4 10*3/uL High [facility] CBC with Diffon 06-10-2022 Abs. Basophil 0.07 k/uL Normal 0.00-0.20 [facility] Comment on above: Performed By: #### C DP, BMP #### [facility] [address] [place] [address] Dr[address] [place] [id number] Graphics Intern: Carlos Mckoy MD Abs.Imm.Granulocyte 0.12 k/uL Normal 0.00-0.30 [facility] Comment on above: Performed By: #### C DP, BMP #### [facility] [address] [place], [facility]83 Graphics Intern: Carlos Mckoy MD Abs.Neutrophil (Seg) 7.56 k/uL Normal 1.50-8.10 [facility] Comment on above: Performed By: #### C DP, BMP #### [address] [place], [facility]83 Graphics Intern: Carlos Mckoy MD Basophils/100 WBC (Bld) 1 % Normal 0-2 [facility] Comment on above: Performed By: #### C DP, BMP #### [facility] [address] [place] [address] Graphics Intern: Carlos Mckoy MD Eosinophils (Bld) [#/Vol] 0.40 10*3/uL Normal 0.00-0.44 [facility] Comment on above: Performed By: #### C DP, BMP #### [facility] [address] [place] [address] Dr. [place], [facility] Graphics Intern: Carlos Mckoy MD Eosinophils/100 WBC (Bld) 3 % Normal 1-4 [facility] Comment on above: Performed By: #### C DP, BMP #### [address] [place], [facility]83 Graphics Intern: Carlos Mckoy MD Erythrocyte distribution width (RBC) [Ratio] 13.7 % Normal 11.8-14.4 [facility] Comment on above: Performed By: #### C DP, BMP #### [address] [place], [place] [facility] Graphics Intern: Carlos Mckoy MD Hematocrit (Bld) [Volume fraction] 40.2 % Normal 36.3-47.1 [facility] Comment on above: Performed By: #### C DP, BMP #### [address] [place], [facility]83 Graphics Intern: Carlos Mckoy MD Hemoglobin (Bld) [Mass/Vol] 13.2 g/dL Normal 11.9-15.1 [facility] Comment on above: Performed By: #### C DP, BMP #### [address] [place], [facility]83 Graphics Intern: Carlos Mckoy MD Immature granulocytes/100 WBC (Bld) 1 % High 0 [facility] Comment on above: Performed By: #### C DP, BMP #### [address] [place], [facility]83 Graphics Intern: Carlos Mckoy MD Lymphocytes (Bld) [#/Vol] 3.13 10*3/uL Normal 1.10-3.70 [facility] Comment on above: Performed By: #### C DP, BMP #### [address] [place], [facility]83 Graphics Intern: Carlos Mckoy MD Lymphocytes/100 WBC (Bld) 25 % Normal 24-43 [facility] Comment on above: Performed By: #### C DP, BMP #### [facility] [address] [place] [address] Graphics Intern: Carlos Mckoy MD MCH (RBC) [Entitic mass] 28.6 pg Normal 25.2-33.5 [facility] Comment on above: Performed By: #### C DP, BMP #### [facility] [address] [place] [address] Graphics Intern: Carlos Mckoy MD MCHC (RBC) [Mass/Vol] 32.8 g/dL Normal 28.4-34.8 [facility] Comment on above: Performed By: #### C DP, BMP #### [address] [place] [address] Graphics Intern: Carlos Mckoy MD MCV (RBC) [Entitic vol] 87.0 fL Normal 82.6-102.9 [facility] Comment on above: Performed By: #### C DP, BMP #### [address] [place] [address] Graphics Intern: Carlos Mckyo MD Monocytes (Bld) [#/Vol] 1.08 10*3/uL Normal 0.10-1.20 [facility] Comment on above: Performed By: #### C DP, BMP #### [facility] [address] [place] [address] Graphics Intern: Carlos Mckoy MD Monocytes/100 WBC (Bld) 9 % Normal 3-12 [facility] Comment on above: Performed By: #### C DP, BMP #### [facility] [address] [place] [address] Graphics Intern: Carlos Mckoy MD Neutrophil (Seg) 61 % Normal 36-65 [facility] Comment on above: Performed By: #### C DP, BMP #### [address] [place], [place] [id number] Graphics Intern: Carlos Mckoy MD NRBC Automated 0.0 per 100 WBC Normal 0.0 [facility] Comment on above: Performed By: #### C DP, BMP #### [address] [place], [facility]83 Graphics Intern: Carlos Mckoy MD Platelet mean volume (Bld) [Entitic vol] 8.7 fL Normal 8.1-13.5 [facility] Comment on above: Performed By: #### C DP, BMP #### [address] [place], [facility]83 Graphics Intern: Carlos Mckoy MD Platelets (Bld) [#/Vol] 255 10*3/uL Normal 138-453 [facility] Comment on above: Performed By: #### C DP, BMP #### [address] [place], [place] [id number] Graphics Intern: Carlos Mckoy MD RBC (Bld) [#/Vol] 4.62 10*6/uL Normal 3.95-5.11 [facility] Comment on above: Performed By: #### C DP, BMP #### [address] [place], [place] [id number] Graphics Intern: Carlos Mckoy MD WBC (Bld) [#/Vol] 12.4 10*3/uL High 3.5-11.3 [facility] Comment on above: Performed By: #### C DP, BMP #### [address] [place] [address] Graphics Intern: Carlos Mckoy MD CT ABDOMEN PELVIS W [...] Cornell Stearns MD 06/10/22 Final result Normal [facility] CT ABDOMEN PELVIS W IV CONTR [...] from December 2014. Hepatic steatosis with hepatomegaly. [facility] CONSOLIDATED EXAMINATION: CT OF THE [...] previous exam from 2014. [facility] RIS CONSOLIDATED Cornell Stearns MD [...] 2014. Hepatic steatosis with hepatomegaly. TAWNY ODELL [facility] Work Phone: Radiology Study observation (narrative) TAWNY LOPEZ [facility] [employer] Work Phone: CT ABDOMEN PELVIS W IV CONTR AST Additional Contrast? NoneOrdered By: Cornell Stearns on 06-10-2022 [facility] Work Phone: HCG, ,Urineon 06-10 Beta HCG ( test) Ql (U) Negative Normal NEG [facility] Comment on above: Result Comment: Spec imens with hCG levels near the threshold of the test (25 mIU/mL) may give a negative or indeterminate result. In such cases, another test should be performed with a new specimen in 48-72 hours. If early is suspected clinically in this setting, correlation with quantitative serum b-hCG level is suggested. [facility] [employer] has confirmed the use of plasma for this test. This has not been cleared or approved by the U.S. Food and Drug Administration. The FDA has determined that such clearance is not necessary. Performed By: #### U MICAO, UAX, [place] [facility] #### [facility] [address] [place] [address] [place] [address] Graphics Intern: Carlos Mckoy MD Laboratory - Chemistry and C hemistry - challengeon 06-10-2022 GFR/1.73 sq M.predicted MDRD (S/P/Bld) [Vol rate/Area] [facility] Comment on above: Average GFR for 30-3 9 years old: 107 mL/min/1.73sq m Chronic Kidney Disease: <60 mL/min/1.73sq m Kidney failure: <15 mL/min/1.73sq m eGFR calculated using average adult body mass. Additional eGFR calculator available at: http://www.[employer]/multiple_crcl_2012.htm Stage 1: Some kidney damage normal GFR Stage 2: Mild kidney damage GFR 60-89 Stage 3: Moderate kidney damage GFR 30-59 Stage 4: Severe kidney damage GFR 15-29 Stage 5: Severe kidney damage GFR <15 ESRD - chronic treatment by dialysis or transplant Microscopic Urinalysison Bacteria, UA 1+ Abnormal None [facility] Epithelial Cells UA 0 TO 2 [facility] Interpretation and review of laboratory results Abnormal [facility] Mucus, UA 3+ Abnormal None [facility] RBC, UA 0 TO 2 [facility] WBC, UA 0 TO 2 [facility] , Urineon 2 Beta HCG ( test) Ql (U) Negative NEGATIVE [facility] Comment on above: Specimens with hCG l evels near the threshold of the test (25 mIU/mL) may give a negative or indeterminate result. In such cases, another test should be performed with a new specimen in 48-72 hours. If early is suspected clinically in this setting, correlation with quantitative serum b-hCG level is suggested. [facility] has confirmed the use of plasma for this test. This has not been cleared or approved by the U.S. Food and Drug Administration. The FDA has determined that such clearance is not necessary. [facility] UA w/Reflex Cultureon 2021 Bilirubin, SemiQt,Ur Negative Normal NEG [facility] Comment on above: Performed By: #### U BALJINDER BERUMENX, [place] [facility] [place] #### [facility] [address] [place] [address] Graphics Intern: Carlos Mckoy MD Blood, Urine 1+ Abnormal NEG [facility] Comment on above: Performed By: #### U ANGELOBALJINDERX, [facility] #### [facility] [address] [place] [address] Graphics Intern: Carlos Mckoy MD Clarity (U) Clear Normal CLEAR [facility] Comment on above: Performed By: #### U ANGELOBALJINDERX, [facility] #### [facility] [address] [place] [address] Graphics Intern: Carlos Mckoy MD Color (U) Yellow Normal YEL [facility] Comment on above: Performed By: #### U MICAO, UAX, UHCG #### [facility] [address] [place] [address] Dr. [place], [place] [id number] Graphics Intern: Carlos Mckoy MD Glucose Ql (U) Negative Normal NEG [facility] Comment on above: Performed By: #### U MICAO, UAX, UHCG #### [facility] [address] [place] [address] Dr. [place], [place] [phone] Graphics Intern: Carlos Mckoy MD Ketones Ql (U) Negative Normal NEG [facility] Comment on above: Performed By: #### U MICAO, UAX, UHCG #### [facility] [address] [place] [address] Dr. [place], [place] [id number] Graphics Intern: Carlos Mckoy MD Leukocyte esterase Test strip Ql (U) Negative Normal NEG [facility] Comment on above: Performed By: #### U MICAO, UAX, UHCG #### [address] [place], [place] [id number] Graphics Intern: Carlos Mckoy MD Nitrite,Ur Negative Normal [facility] Comment on above: Performed By: #### U MICAO, UAX, UHCG #### [address] [place], [place] [id number] Graphics Intern: Carlos Mckoy MD PH,Ur 6.5 Normal 5.0-9.0 [facility] Comment on above: Performed By: #### U MICAO, UAX, UHCG #### [facility] [address] [place] [address] Dr. [place], [place] [id number] Graphics Intern: Carlos Mckoy MD Protein Ql (U) Negative Normal NEG [facility] Comment on above: Performed By: #### U MICAO, UAX, UHCG #### [facility] [address] [place] [address] Dr. [place], [place] [id number] Graphics Intern: Carlos Mckoy MD Spec. [place],Ur 1.020 Normal 1.010-1.020 [facility] Comment on above: Performed By: #### U ANGELO, UAX, UHCG #### [facility] [address] [place], [place] [phone] Graphics Intern: Carlos Mckoy MD Urobilinogen,Ur Normal Normal NORM [facility] Comment on above: Performed By: #### U ANGELO, UAX, CG #### [facility] [address] [place], [place] [id number] Graphics Intern: Carlos Mckoy MD US NON OB TRANSVAGINALon [...] Interpreted by: Denis Howe MD Signed by: Densi Howe MD 06/10/22 Final result Normal [facility] 1. No evidence for torsion. 2. Simple appearing pelvic cysts are favored to be paraovarian, for which follow-up ultrasound in 3-6 months is recommended. RECOMMENDATIONS: 8 cm left paraovarian probable benign cyst. Recommend follow-up pelvic US in 3-6 months. Reference: Radiology 2019 Nov;293(2):359-371 [facility] CONSOLIDATED EXAMINATION: PELVIC ULTRASOUND 06/10/2022 [...] Free Fluid: No evidence of free fluid. [facility] CONSOLIDATED Denis Howe MD - [...] in 3-6 months. Reference: Radiology 2019 Nov;293(2):359-371 [employer] Work Phone: Radiology Study observation (narrative) [employer] [facility] [employer] Work Phone: US NON OB TRANSVAGINALOrdere d By: Denis Howe on 06-10-2022 [employer] [facility] Work Phone: Urinalysis with Reflex to Cu ltureon 06-10-2022 Bilirubin Urine Negative NEGATIVE [facility] Color, UA Yellow Yellow [facility] [employer] Glucose, Ur Negative NEGATIVE [facility] [employer] Interpretation and review of laboratory results Abnormal [facility] Ketones Ql (U) Negative NEGATIVE [facility] Leukocyte esterase Test strip Ql (U) Negative NEGATIVE [facility] Nitrite, Urine Negative NEGATIVE [facility] pH, UA 6.5 5 - 9 [facility] Protein, UA Negative NEGATIVE [facility] Specific [place], UA 1.020 1.01 - 1.02 [facility] Turbidity UA Clear Clear [facility] Urine Hgb 1+ Abnormal NEGATIVE [facility] Urobilinogen, Urine Normal Normal [facility] Urinalysis,Microon 2 Bacteria 1+ Abnormal NONE [facility] Comment on above: Performed By: #### U MICAO, UAX, UHCG #### [facility] [address] [place] [address] Graphics Intern: Carlos Mckoy MD Epithelial cells LM Ql (Urine sed) 0 TO 2 Normal 0-25 [facility] Comment on above: Performed By: #### U MICAO, UAX, UHCG #### [facility] [address] [place], [place] [id number] Graphics Intern: Carlos Mckoy MD Mucus Strands 3+ Abnormal NONE [facility] Comment on above: Performed By: #### U MICAO, UAX, UHCG #### [facility] [address] [place] [address] Graphics Intern: Carlos Mckoy MD Urine RBC's 0 TO 2 Normal 0-2 [facility] Comment on above: Performed By: #### U MICAO, UAX, UHCG #### [facility] [address] [place], [facility]83 Graphics Intern: Carlos Mckoy MD Urine WBC's 0 TO 2 Normal 0-5 [facility] Comment on above: Performed By: #### U MICAO, UAX, UHCG #### [facility] [address] [place] [address] Graphics Intern: Carlos Mckoy MD APTTon 06-29-2020 aPTT Coag (Bld) [Time] 26.5 s Normal 25.0-35.0 Th e [facility] Comment on above: Result Comment: ALL [...] THIS PURPOSE. Performed By: #### 5 7307, 24700, 85108 #### [facility] [address] [place] [address], [facility] [[email or web address]] BASIC METABOLIC PANELon Calcium [Mass/Vol] 9.3 mg/dL Normal 8.6-10.3 [facility] Comment on above: Performed By: #### 1 5, 28636, 94648 #### [facility] [address] [place] [address], [place] Chloride [Moles/Vol] 104 mmol/L Normal 98-107 [facility] Comment on above: Performed By: #### 1 5, 08404, 64249 #### [facility] [address] [place] [address], [place] CO2 [Moles/Vol] 25 mmol/L Normal 21-31 [facility] Comment on above: Performed By: #### 1 5, 68530, 80731 #### [facility] [address] [place] [address], [place] Creatinine [Mass/Vol] 0.71 mg/dL Normal 0.60-1.20 [facility] Comment on above: Performed By: #### 1 54, 48114, 16354 #### [facility] [address] [place] [address], [place] GFR/1.73 sq M predicted among blacks MDRD (S/P/Bld) [Vol rate/Area] mL/min/{1.73_m2} Normal >60 [facility] Comment on above: Performed By: #### 1 54, 23326, 00820 #### [facility] [address] [place] [address], [place] GFR/1.73 sq M predicted among non-blacks MDRD (S/P/Bld) [Vol rate/Area] mL/min/{1.73_m2} Normal >60 [facility] Comment on above: Performed By: #### 1 54, 42712, 86835 #### [facility] [address] [place] [address], [place] Glucose [Mass/Vol] 99 mg/dL Normal 70-100 [facility] Comment on above: Performed By: #### 1 5, 79314, 75768 #### [facility] [address] [place] [address], [facility] [[email or web address]] Potassium [Moles/Vol] 3.3 mmol/L Low 3.5-5.1 [facility] Comment on above: Performed By: #### 1 54, 20417, 54603 #### [facility] [address] [place] [address], [facility] [[email or web address]] Sodium [Moles/Vol] 139 mmol/L Normal 136-145 [facility] Comment on above: Performed By: #### 1 54, 44505, 16599 #### [facility] [address] [facility] Urea nitrogen [Mass/Vol] 15 mg/dL Normal 7-25 [facility] Comment on above: Performed By: #### 1 54, 95034, 89186 #### [facility] 3000 [facility]. [address] CBC W/DIFFon 06-29-2020 ABS BASOPHILS 0.1 10*3/uL Normal 0.0-0.2 [facility] Comment on above: Performed By: #### 5 3 #### [facility] [address] [facility] ABS IMM GRANS 0.1 10*3/uL Normal 0.0-0.2 [facility] Comment on above: Performed By: #### 5 0103 #### [facility] [address] [facility]. [address] ABS NEUTROPHILS 5.3 10*3/uL Normal 1.6-7.6 [facility] Comment on above: Performed By: #### 5 3 #### [facility] [address] [place] [address], [facility] [[email or web address]] Basophils/100 WBC (Bld) 0.7 % Normal 0.0-1.0 T guillermo [facility] Comment on above: Performed By: #### 5 0103 #### [facility] [address] [place] [address], [facility] [[email or web address]] Eosinophils (Bld) [#/Vol] 0.2 10*3/uL Normal 0.0-0.5 [facility] Comment on above: Performed By: #### 5 0103 #### [facility] [address] [facility] [place] [address], [facility] [[email or web address]] Eosinophils/100 WBC (Bld) 1.7 % Normal 0.0-6.0 [facility] Comment on above: Performed By: #### 5 0103 #### [facility] [address] [facility] Erythrocyte distribution width (RBC) [Ratio] 14.1 % Normal 11.5-15.0 [facility] Comment on above: Performed By: #### 5 0103 #### [facility] [address] Hematocrit (Bld) [Volume fraction] 41.8 % Normal 36.0-45.0 [facility] Comment on above: Performed By: #### 5 0103 #### [facility] [address] [place] [address], [facility] [[email or web address]] Hemoglobin (Bld) [Mass/Vol] 14.0 g/dL Normal 12.0-15.0 [facility] Comment on above: Performed By: #### 5 0103 #### [facility] [address] [facility] [place] [address], [facility] [[email or web address]] IMMATURE GRANS 1.3 % High 0.0-1.0 [facility] Comment on above: Performed By: #### 5 0103 #### [facility] [address] [place] [address], [facility] [[email or web address]] Lymphocytes (Bld) [#/Vol] 3.7 10*3/uL Normal 1.2-4.0 [facility] Comment on above: Performed By: #### 5 0103 #### [facility] [address] [place] [address], [facility] [[email or web address]] Lymphocytes/100 WBC (Bld) 34.6 % Normal 20.0-45.0 [facility] Comment on above: Performed By: #### 5 3 #### [facility] [address] [place] [address], [facility] [[email or web address]] MCH (RBC) [Entitic mass] 28.3 pg Normal 27.0-33.0 [facility] Comment on above: Performed By: #### 5 3 #### [facility] [address] [place] [address], [facility] [[email or web address]] MCHC (RBC) [Mass/Vol] 33.5 g/dL Normal 32.0-35.0 [facility] Comment on above: Performed By: #### 5 3 #### [facility] [address] [place] [address], [email or web address]] MCV (RBC) [Entitic vol] 84.6 fL Normal 82.0-98.0 T he [facility] Comment on above: Performed By: #### 5 3 #### [facility] [address] [place] [address], [facility] [[email or web address]] Monocytes (Bld) [#/Vol] 1.3 10*3/uL High 0.1-1.0 [facility] Comment on above: Performed By: #### 5 3 #### [facility] [address] [place] [address], [email or web address]] MONOS 12.1 % High 5.0-12.0 The [facility] Comment on above: Performed By: #### 5 3 #### [facility] [address] [place] [address], [facility] [[email or web address]] Neutrophils/100 WBC (Bld) 49.6 % Normal 40.0-72.0 [facility] Comment on above: Performed By: #### 5 0103 #### [facility] [address] [facility]. [address] Nucleated RBC/100 WBC (Bld) [Ratio] 0 % Normal 0-0 [facility] Comment on above: Performed By: #### 5 0103 #### [facility] [address] [facility] [place] [address], [facility] [[email or web address]] PLAT CNT 260 10*3/uL Normal 150-400 The [facility] Comment on above: Performed By: #### 5 0103 #### [facility] [address] RBC (Bld) [#/Vol] 4.94 10*6/uL Normal 3.80-5.00 [facility] Comment on above: Performed By: #### 5 0103 #### [facility] [address] WBC (Bld) [#/Vol] 10.70 10*3/uL High 4.00-10.60 [facility] Comment on above: Performed By: #### 5 0103 #### [facility] [address] D DIMER TESTon 06-29-2020 D-DIMER TEST <0.27 Normal 0.01-0.49 The [facility] Comment on above: Result Comment: D-Di flip values of less than 0.50 ug/ml (FEU) are considered to be a negative predictor of thrombosis. However, the D-Dimer result should be used in conjunction with pretest probability and should not be used alone to diagnose a thrombotic event. Performed By: #### 1 0055, 72250, 34575 #### [facility] [address] ED TOX PANEL URINEon 020 50 THC Negative Normal NEGATIVE The [facility] Comment on above: Performed By: #### 3 1763 #### [facility] [address] [place] [address], [facility] [[email or web address]] BARBITURATES Negative Normal NEGATIVE The [facility] Comment on above: Performed By: #### 3 1763 #### [facility] [address] [place] [address], [facility] [[email or web address]] Benzodiazepines Ql (U) Negative Normal NEGATIVE Th e [facility] Comment on above: Performed By: #### 3 1763 #### [facility] [address] [place] [address], [email or web address]] Cocaine Ql (U) Negative Normal NEGATIVE The [facility] Comment on above: Performed By: #### 3 1763 #### [facility] [address] [place] [address], [email or web address]] Methadone Ql (U) Negative Normal NEGATIVE The [facility] Comment on above: Performed By: #### 3 1763 #### [facility] [address] [place] [address], [email or web address]] MONO AMPHET Negative Normal NEGATIVE The [facility] Comment on above: Performed By: #### 3 1763 #### [facility] [address] [place] [address], [email or web address]] Opiates Ql (U) Negative Normal NEGATIVE The [facility] Comment on above: Performed By: #### 3 1763 #### [facility] [address] [place] [address], [facility] [[email or web address]] Phencyclidine Ql (U) Negative Normal NEGATIVE The [facility] Comment on above: Performed By: #### 3 1763 #### [facility] [address] [place] [address], [facility] [[email or web address]] PROPOXYPHENE Negative Normal NEGATIVE The [facility] Comment on above: Performed By: #### 3 1763 #### [facility] [address] [place] [address], [facility] [[email or web address]] TRICYCLICS Negative Normal NEGATIVE [facility] Comment on above: Performed By: #### 3 1763 #### [facility] [address] [place] [address], [place] LIVER BATTERYon 06-29-2020 Albumin [Mass/Vol] 3.9 g/dL Normal 3.5-5.7 [facility] Comment on above: Performed By: #### 1 0055, 76501, [id number] #### [facility] [address] [place] [address], [facility] [[email or web address]] ALKALINE PHOSPH 58 IU/L Normal 34-104 [facility] Comment on above: Performed By: #### 1 0055, 91968, 89202 #### [facility] [address] [place] [address], [facility] [[email or web address]] ALT [Catalytic activity/Vol] 22 U/L Normal 7-52 [facility] Comment on above: Performed By: #### 1 0055, 43502, 57456 #### [facility] [address] [place] [address], [facility] [[email or web address]] AST [Catalytic activity/Vol] 25 U/L Normal 13-39 [facility] Comment on above: Performed By: #### 1 0055, 98998, 09181 #### [facility] [address] [place] [address], [place] Bilirubin [Mass/Vol] 0.2 mg/dL Low 0.3-1.0 [facility] Comment on above: Performed By: #### 1 0055, 98308, 38494 #### [facility] [address] [place] [address], [place] Bilirubin.direct [Mass/Vol] 0.0 mg/dL Normal 0.0-0.2 [facility] Comment on above: Performed By: #### 1 0055, 61527, 20094 #### [facility] [address] [facility] [place] [address], [facility] [[email or web address]] Protein [Mass/Vol] 7.1 g/dL Normal 6.0-8.3 [facility] Comment on above: Performed By: #### 1 0055, 23993, 94294 #### [facility] [address] [facility] [place] [place] [address], [facility] [[email or web address]] POC URINE PREGNANCYon 2019 Beta HCG ( test) Ql (U) Negative Normal NEGATIVE [facility] Comment on above: Result Comment: Perf ormed in Emergency Department. Performed By: #### 1 0055, 18806, 75552 #### [facility] [address] [place] [address], [facility] [[email or web address]] PORTABLE CHEST 1 VIEWon PORTABLE CHEST 1 VIEW [facility] Department of Radiology [address] [place] [address] [id number] Patient Name: LUPE ABRAMS : 1985 Sex: F Age: Race: White Pt. Location: [facility] Patient Status: E Ordered Date: 06/29/2020 7:25:00 [...] process Electronically signed: Jazmin Ngo. Transcribed by: [email or web address], User Resident: Electronically Signed by: JAZMIN NGO @ 06/29/2020 08:10 PM Normal [facility] Comment on above: Order Comment: R/O I nfiltrates PROTHROMBIN TIMEon 0 INR Coag (PPP) [Relative time] 0.96 {INR} Normal 0.91-1.16 [facility] Comment on above: Result Comment: ACCC [...] CHEST 1995;[id number]. Performed By: #### 5 7307, 50115, 03082 #### [facility] [address] PT Coag (PPP) [Time] 12.8 s Normal 12.3-14.8 [facility] Comment on above: Result Comment: ALL RESULTS MUST BE INTERPRETED WITH RESPECT TO BLOOD DRAWING ARTIFACT OR DILUTION ERROR OF ANTICOAGULANT AT THE TIME OF SAMPLING. Performed By: #### 5 7307, 12854, 71778 #### [facility] [address] [place] [address], [facility] [[email or web address]] TROPONIN-Ion 06-29-2020 Troponin I.cardiac [Mass/Vol] 0.01 ng/mL Normal 0.00-0.04 [facility] Comment on above: Result Comment: REFE RENCE RANGES: 0.00 - 0.04 ng/ml NORMAL 0.05 - 0.50 ng/ml INDETERMINATE > 0.50 ng/ml CONSISTENT WITH AN M.I. Performed By: #### 1 0055, 11725, 41404 #### [facility] [address] URINALYSIS REFLEXon 06-29-20 20 Appearance (U) CLOUDY Abnormal CLEAR [facility] Comment on above: Order Comment: Crite vania for reflexing a culture was not met. Please call the lab at 7668 within 24 hours of collection time if culture is needed Performed By: #### 3 0976 #### [facility] [address] [place] [address], [facility] [[email or web address]] Bilirubin [Mass/Vol] Negative Normal NEGATIVE [facility] Comment on above: Order Comment: Crite vania for reflexing a culture was not met. Please call the lab at 7668 within 24 hours of collection time if culture is needed Performed By: #### 3 0965 #### [facility] [address] [place] [address], [facility] [[email or web address]] BLOOD SMALL Abnormal NEGATIVE [facility] Comment on above: Order Comment: Crite vania for reflexing a culture was not met. Please call the lab at 7668 within 24 hours of collection time if culture is needed Performed By: #### 3 0965 #### [facility] [address] Color (U) YELLOW Normal YELLOW [facility] Comment on above: Order Comment: Crite vania for reflexing a culture was not met. Please call the lab at 7668 within 24 hours of collection time if culture is needed Performed By: #### 3 0965 #### [facility] [address] [place] [address], [facility] [[email or web address]] EPIS MANY Abnormal FEW,OCC,NONE SEEN [facility] Comment on above: Order Comment: Crite vania for reflexing a culture was not met. Please call the lab at 7668 within 24 hours of collection time if culture is needed Performed By: #### 3 0965 #### [facility] [address] [place] [address], [facility] [[email or web address]] Glucose [Mass/Vol] Negative Normal NEGATIVE [facility] Comment on above: Order Comment: Crite vania for reflexing a culture was not met. Please call the lab at 7668 within 24 hours of collection time if culture is needed Performed By: #### 3 0965 #### [facility] [address] [place] [address], [facility] [[email or web address]] HYALINE CASTS 3 /LPF Abnormal NONE SEEN [facility] Comment on above: Order Comment: Crite vania for reflexing a culture was not met. Please call the lab at 7668 within 24 hours of collection time if culture is needed Performed By: #### 3 0965 #### [facility] [address] [place] [address], [facility] [[email or web address]] KETONE Negative Normal NEGATIVE [facility] Comment on above: Order Comment: Crite vania for reflexing a culture was not met. Please call the lab at 7668 within 24 hours of collection time if culture is needed Performed By: #### 3 0965 #### [facility] [address] [place] [address], [place] LEUK LIDYA TRACE Abnormal NEGATIVE [facility] Comment on above: Order Comment: Crite vania for reflexing a culture was not met. Please call the lab at 7668 within 24 hours of collection time if culture is needed Performed By: #### 3 0965 #### [facility] [address] [place] [address], [facility] [[email or web address]] MUCUS THREADS MOD Abnormal NONE SEEN [facility] Comment on above: Order Comment: Crite vania for reflexing a culture was not met. Please call the lab at 7668 within 24 hours of collection time if culture is needed Performed By: #### 3 0965 #### [facility] [address] [place] [address], [facility] [[email or web address]] Nitrite Ql (U) Negative Normal NEGATIVE [facility] Comment on above: Order Comment: Crite vania for reflexing a culture was not met. Please call the lab at 7668 within 24 hours of collection time if culture is needed Performed By: #### 3 0965 #### [facility] [address] [facility] [place] [address], [facility] [[email or web address]] pH (Bld) 6.0 Normal 5.0-8.0 [facility] Comment on above: Order Comment: Crite vania for reflexing a culture was not met. Please call the lab at 7668 within 24 hours of collection time if culture is needed Performed By: #### 3 0965 #### [facility] [address] [facility] [place] [address], [facility] [[email or web address]] Protein (U) [Mass/Vol] 30 mg/dL Abnormal NEGATIVE e [facility] Comment on above: Order Comment: Crite vania for reflexing a culture was not met. Please call the lab at 7668 within 24 hours of collection time if culture is needed Performed By: #### 3 0965 #### [facility] [address] [facility] [place] [place] [address], [facility] [[email or web address]] RBC (U) [#/Vol] 3-5 Abnormal NONE SEEN [facility] Comment on above: Order Comment: Crite vania for reflexing a culture was not met. Please call the lab at 7668 within 24 hours of collection time if culture is needed Performed By: #### 3 0965 #### [facility] [address] SPEC GRAV 1.023 High 1.015-1.020 The [facility] Comment on above: Order Comment: Crite vania for reflexing a culture was not met. Please call the lab at 7668 within 24 hours of collection time if culture is needed Performed By: #### 3 0965 #### [facility] [address] [facility] [place] [address], [facility] [[email or web address]] WBC UA 11-20 Abnormal NONE SEEN [facility] Comment on above: Order Comment: Crite vania for reflexing a culture was not met. Please call the lab at 7668 within 24 hours of collection time if culture is needed Performed By: #### 3 0965 #### [facility] [address] [facility]. [address] MUMPS IGG BLDon 05-07-2020 MUMPS IGG 1.39 Normal [facility] Comment on above: Result Comment: NORM AL RANGES: < OR = 0.9O NEGATIVE ; NO DETECTABLE IgG ANTIBODY TO MUMPS 0.91 - 1.09 EQUIVOCAL; REPEAT TESTING SUGGESTED > OR = 1.10 POSITIVE ; INDICATES PRESENCE OF DETECTABLE IgG ANTIBODY TO MUMPS Performed By: #### 1 0055, 31706, 38520 #### [facility] [address] RUBELLAon 05-07-2020 RUBELLA 2.16 Normal [facility] Comment on above: Result Comment: NORM AL RANGES: < OR = 0.9O NEGATIVE ; NO DETECTABLE IgG ANTIBODY TO RUBELLA 0.91 - 1.09 EQUIVOCAL; REPEAT TESTING SUGGESTED > OR = 1.10 POSITIVE ; INDICATES PRESENCE OF DETECTABLE IgG ANTIBODY TO RUBELLA VIRUS Performed By: #### 1 0055, 61060, 36883 #### [facility] [address] [facility]. [address] RUBEOLA MEASLES IGGon 2019 RUBEO IGG 1.82 Normal [facility] Comment on above: Result Comment: NORM AL RANGES: < OR = 0.9O NEGATIVE ; NO DETECTABLE IgG ANTIBODY TO RUBEOLA 0.91 - 1.09 EQUIVOCAL; REPEAT TESTING SUGGESTED > OR = 1.10 POSITIVE ; INDICATES PRESENCE OF DETECTABLE IgG ANTIBODY TO RUBEOLA Performed By: #### 1 0055, 08956, 21947 #### [facility] [address] TB QUANTIFERON PLUSon 2019 MITOGEN MINUS NIL >10.00 Normal [facility] Comment on above: Performed By: #### 3 1592 #### [facility] [address] NIL 0.02 IU/mL Normal [facility] Comment on above: Performed By: #### 3 1592 #### [facility] [address] TB QUANTIFERON Negative Normal NEGATIVE [facility] Comment on above: Result Comment: Laith tiferon TB Gold Interpretation (IU/mL): NEGATIVE: M. tuberculosis infection not likely. Nil: <=8.0 TB1 Antigen minus Nil ([id number]): <0.35 OR >=0.35; and <25% of Nil value. TB2 Antigen minus Nil ([id number]): <0.35 OR >=0.35; and <25% of Nil [...] (https://www.cdc.gov/tb/publications/guidlines/default.htm Performed By: #### 3 1592 #### [facility] [address] [place] [address], [facility] [[email or web address]] TB1 AG 0.02 IU/mL Normal [facility] Comment on above: Performed By: #### 3 1592 #### [facility] [address] [facility] [address], [facility] [[email or web address]] TB1 AG MINUS NIL 0.00 IU/mL Normal [facility] Comment on above: Performed By: #### 3 1592 #### [facility] [address] [place] [address], [facility] [[email or web address]] TB2 AG 0.02 IU/mL Normal [facility] Comment on above: Performed By: #### 3 1592 #### [facility] [address] [place] [address], [facility] [[email or web address]] TB2 AG MINUS NIL 0.00 IU/mL Normal [facility] Comment on above: Performed By: #### 3 1592 #### [facility] [address] [place] [address], [facility] [[email or web address]] Measles IgG-[facility] 8 Measles (Rubeola) IgG Ab-[place] Negative [facility] Comment on above: Result Comment: ---- REFERENCE VALUE Vaccinated: Positive (>=1.1 AI)Unvaccinated: Negative (<=0.8 AI) Performed By: #### C [id number] ####[facility] [place] [address] Measles IgG Ab Index-[place] 0.8 [facility] Comment on above: Result Comment: Test Performed by:[facility] [place] [address] Performed By: #### C [id number] ####[facility] [id number] [place] [address] VZ IgG-[facility] 07-16-2018 Varicella IgG Antibody Index-[place] 0.9 [facility] Comment on above: Result Comment: Test Performed by:[facility] [place] [address] Performed By: #### V ZPG ####[facility] [id number] [place] [address] Varicella-Zoster IgG Antibody-[place] Equivocal Normal [facility] Comment on above: Result Comment: Yeyo mmend follow-up testing in 10-14 days if clinicallyindicated. REFERENCE VALUE Vaccinated: Positive (>=1.1 AI)Unvaccinated: Negative (<=0.8 AI) Performed By: #### V ZPG ####[address] [address] Rubella IgGon 07-14-2018 Rubella IgG Ab Interp Reactive Normal [facility] Comment on above: Result Comment: The presence of detectable IgG-class antibodies indicates immunity to the rubella virus through prior immunization or exposure. Individuals testing reactive (positive) are considered immune to rubella infection.This result was obtained with the Access Rubella IgG EIA. Despite calibration by means of a reference preparation, values obtained with different branding machine operator's assay methods may not be used interchangeably. The magnitude of the reported IgG level CANNOT be correlated to an endpoint titer. Performed By: #### R UB ####[address] [address] Vital Signs Date Time Vital Sign Value Performing Clinician Shay rodríguez 10-09-2023 14:30-0500 Body height 180.3 cm Smith Bao DO Work Phone: [facility] 10-09-2023 14:30-0500 Body mass index (BMI) [Ratio] 50.45 kg/m2 Smith Bao DO [facility] 10-09-2023 14:30-0500 Body weight 163.97 kg Smith Bao DO Work Phone: [facility] 10-09-2023 14:30-0500 Diastolic blood pressure 90 mm[Hg] Smith Bao DO [facility] 10-09-2023 14:30-0500 Heart rate 103 /min Smith Bao DO Work Phone: [facility] 10-09-2023 14:30-0500 SaO2% (BldA) [Mass fraction] 98 % Smith Bao DO Work Phone: [facility] [employer] [facility] 10-09-2023 14:30-0500 Systolic blood pressure 142 mm[Hg] Smith Bao DO Work Phone: [facility] 09-20-2022 02:30-0500 Diastolic blood pressure 74 mm[Hg] Johana Sagastume MD Work Phone: [employer] 09-20-2022 02:30-0500 Heart rate 108 /min Johana Sagastume MD Work Phone: [employer] 09-20-2022 02:30-0500 Respiratory rate 24 /min Johana Sagastume MD Work Phone: [employer] 09-20-2022 02:30-0500 Systolic blood pressure 122 mm[Hg] Johana Sagastume MD Work Phone: [employer] 09-20-2022 01:09-0500 Body height 180.3 cm Johana Sagastume MD Work Phone: [employer] 09-20-2022 01:09-0500 Body mass index (BMI) [Ratio] 50.91 kg/m2 Johana Sagastume MD Work Phone: [employer] 09-20-2022 01:09-0500 Body temperature 98.8 [degF] Johana Sagastume MD Work Phone: [employer] 09-20-2022 01:09-0500 Body weight 165.56 kg Johana Sagastume MD Work Phone: [employer] 09-20-2022 01:09-0500 SaO2% (BldA) [Mass fraction] 95 % Johana Sagastume MD Work Phone: [employer] 06-10-2022 15:57-0400 SaO2% (BldA) [Mass fraction] 97 % Neptali Fontenot MD Work Phone: [facility] 06-10-2022 15:12-0400 Diastolic blood pressure 78 mm[Hg] Neptali Fontenot MD Work Phone: [facility] 06-10-2022 15:12-0400 Systolic blood pressure 139 mm[Hg] Neptali Fontenot MD Work Phone: [facility] 06-10-2022 15:11-0400 Body mass index (BMI) [Ratio] 50.91 kg/m2 Neptali Fontenot MD Work Phone: [facility] 06-10-2022 15:11-0400 Body weight 165.56 kg Neptali Fontenot MD Work Phone: [facility] 06-10-2022 15:07-0400 Body temperature 98.2 [degF] Neptali Fontenot MD Work Phone: [facility] 06-10-2022 15:07-0400 Heart rate 93 /min Neptali Fontenot MD Work Phone: [facility] 06-10-2022 15:07-0400 Respiratory rate 18 /min Neptali Fontenot MD Work Phone: [facility] Encounters Encounter Date Encounter Type Care Provider Facility Start: 07-04-2024 End: 07-04-2024 ambulatory NEPTALI Leandro FONTENOT [facility] Start: 07-04-2024 Encounter for genera l adult medical examination without abnormal [facility] Start: 02-10-2024 End: 02-11-2024 Emergency department patient visit ANA ROSA TATUM [facility] Start: 02-10-2024 End: 02-10-2024 Emergency department patient visit NEPTALI FONTENOT [facility] Start: 10-12-2023 End: 10-12-2023 [facility] Start: 10-09-2023 End: 10-09-2023 Office outpatient visit 15 minutes Smith Mendez DO Work Phone: [facility] Comment on above: Precordial pain (Saira enzo Dx) Start: 10-09-2023 End: 10-09-2023 ambulatory SMITH MENDEZ [facility] Start: 10-08-2023 Telephone encounter Jessica [facility] Start: 05-29-2023 End: 05-30-2023 ambulatory [facility] Start: 09-20-2022 End: 09-20-2022 Emergency department patient visit [facility] Start: 09-20-2022 End: 09-20-2022 Emergency department patient visit Johana Sagastume MD Work Phone: [facility] ED Comment on above: Influenza with respi ratory manifestation other than pneumonia (Primary Dx); Influenza A Start: 06-10-2022 End: 06-10-2022 Emergency department patient visit [facility] Start: 06-10-2022 End: 06-10-2022 Emergency department patient visit Neptali Fontenot MD Work Phone: [facility] ED Comment on above: Back strain, initial encounter (Primary Dx); PCOS (polycystic ovarian syndrome) Start: 06-29-2020 End: 06-29-2020 Emergency department patient visit ARTEMIO MCGUIRE Facility:[facility] Start: 07-14-2018 End: 07-15-2018 Patient encounter AMBER RINALDI Facility:[facility] Procedures Date Procedure Procedure Detail Performing Clinician [...] DTaP/Tdap/Td vaccine (3 - Td or Tdap) [facility] Start: 02-16-2025 DTaP,Tdap and Td Vaccines (2 - Td or Tdap) DTaP,Tdap and Td Vaccines (2 - Td or Tdap) [facility] Start: 10-09-2024 Adult BMI Screening Adult BMI Screen ing [facility] Start: 10-09-2024 Tobacco Screening Tobacco Screening [facility] Start: 07-15-2024 Adult BMI Screening Adult BMI Screen ing [facility] Start: 07-14-2024 Tobacco Screening Tobacco Screening [facility] Start: 10-09-2023 End: 10-09-2023 Patient encounter procedure 10/09/2023 2:45 PM EST Office Visit [facility] [address] [place], [place] [address] [place] [address] Smith Mendez, DO [address] [place] [address], [address] [place] [address] [facility] Start: 06-12-2023 Adult BMI Follow Up Plan Adult BMI Follow Up Plan [facility] Start: 05-29-2023 Influenza vaccination Influenza Vacc ine [facility] Start: 05-29-2022 Influenza vaccination Flu vaccine (# 1) [facility] Start: 04-28-2022 Influenza vaccination Flu vaccine (# 1) [facility] Start: 01-15-2022 COVID-19 Vaccine (3 - Booster for Pfizer series) COVID-19 Vaccine (3 - Booster for Pfizer series) [facility] Start: 10-12-2021 COVID-19 Vaccine (3 - Booster for Pfizer series) COVID-19 Vaccine (3 - Booster for Pfizer series) [facility] Start: 12-07-2018 Diabetes screen Diabetes screen [facility] Start: 12-07-2013 Screening for malign ant neoplasm of cervix [facility] Start: 12-07-2004 Screening for malign ant neoplasm of cervix Pap smear [facility] Start: 12-07-2001 Hepatitis C screening Hepatitis C sc reen [facility] Start: 12-07-1998 HIV screening HIV screen [facility] Start: 1995 Depression Screen Depression Screen [facility] Start: 1995 Depression Screening Depression Scre [facility] Start: 12-07-1984 Varicella vaccine (1 of 2 - 2-dose childhood series) Varicella vaccine (1 of 2 - 2-dose childhood series) [facility] End: 09-20-2022 Strep A culture, throat Strep A culture, throat Microbiology STAT One Time for 1 Occurrences starting 09/20/2022 until 09/20/2022 [facility] Work Phone: Comment on above: One Time for 1 Occur rences starting 09/20/2022 until 09/20/2022 End: 06-10-2022 US DUP ABD PEL RETRO SCROT LIMITED [facility] [employer] Work Phone: Comment on above: Once for 1 Occurrenc es starting 06/10/2022 until 06/10/2022 Payers Date Payer Category Payer Medicaid [facility] MEDICAID [facility] MEDICAID [id number] 2022-Present [phone] [address] [place] [address] [id number] 2021 Medicaid [id number] 2021 Unknown [id number] 1983 Unknown [id number] [id number] 1983 Unknown [id number] 1983 Unknown [id number] 1983 Unknown [id number] 1983 Unknown [id number] 1983 Unknown [id number] [id number] 1983 Unknown [id number] [id number] 1983 Unknown [id number] [id number] 1983 Unknown [id number] 1985 Unknown [id number] Unknown [id number] Unknown [id number] Social History Date Type Detail Facility Start: 12-22-2017 End: 10-09-2023 Tobacco smoking status [facility] Never smoked tobacco [facility] Start: 12-22-2017 End: 10-09-2023 Tobacco use and exposure Smokeless tobacco non-user [facility]: Start: 06-10-2022 End: 09-20-2022 Alcohol intake Current drinker of alcohol (finding) [facility]: Start: 1985 Sex Assigned At Not on file [facility]: Start: 05-31-2022 End: 09-20-2022 Exposure to SARS-CoV-2 (event) Not sure [facility]: Start: 07-14-2023 End: 10-09-2023 Alcohol intake Ex-drinker (finding) [facility] Start: 10-11-2020 End: 03-27-2021 [facility] Start: 10-11-2020 End: 03-27-2021 Social connection and isolation panel [facility] Do you belong to any clubs or organizations such as rastafarian groups, unions, fraternal or athletic groups, or school groups? No [facility] Are you now , , , , never or living with a partner? Never [facility] How often to you hav e a drink containing alcohol? Monthly or less [facility] How many standard dr inks containing alcohol do you have on a typical day? 1 or 2 [facility] How often do you hav e 6 or more drinks on 1 occasion? Never [facility] How hard is it for y ou to pay for the very basics like food, housing, medical care, and heating Not hard at all [facility] Start: 1985 [facility] Start: 04-10-2022 Gender identity Identifies as female gender (finding) [facility] Start: 04-10-2022 Sexual orientation Heterosexual (finding) [facility] Goals Date Patient Goal Desired Activity [...] (polycystic ovarian syndrome) BMI 50.0-59.9, adult ([facility] Insulin resistance Hyperinsulinemia Chest pain COVID-19 Pelvic [...] Diagnosis Date Acid reflux Anemia Angina pectoris ([facility]) seen in ER X2- related to COVID; [...] 07/04/2022 Performed by Tal Mendez MD at [facility] DILATION AND CURETTAGE OF UTERUS X2 HYSTEROSCOPY [...] Friends and Family: Twice a week Attends Gnosticism Services: Never Active Member of Clubs or [...] Fontenot MD Referring Physician: Neptali Fontenot MD [address] [place] [address] documented in this encounter [facility] [employer] [facility] Note 10-08-2023 Telephone Encounter - Jessica Dixon CMA - 10/08/2023 10:10 AM EST Note Date & Type Note Facility 10-08-2023 Miscellaneous Notes Formattin g of this note might be different from the original. Left message for patient to remind them to bring their most current medication list with them to their appointment. documented in this encounter [facility] Telephone encounter Note 10-08-2023 Telephone Encounter - Jessica Dixon CMA - 10/08/2023 10:10 AM EST Note Date & Type Note Facility 10-08-2023 Telephone encount er Note Left message for patient to remind them to bring their most current medication list with them to their appointment. [facility] Hospital Discharge instructions 09-20-2022 Discharge InstructionsAttachments [...] cannot be sent through Care Everywhere.Immunization: Influenza (Maltese)documented in this encounter [facility]: Evaluation note Note Date & Type Note Facility Evaluation note Diagnosis Back strain, initial encounter- Primary PCOS (polycystic ovarian syndrome) Polycystic ovaries documented in this encounter [facility]: Evaluation note Note Date & Type Note Facility Evaluation note Diagnosis Influenza with respiratory manifestation other than pneumonia- Primary Influenza with other respiratory manifestations Influenza A Influenza with other respiratory manifestations documented in this encounter [facility]: Evaluation note Note Date & Type Note Facility Evaluation note Diagnosis Precordial pain- Primary documented in this encounter [facility] Hospital Discharge instructions Attachments Note Date & Type Note Facility Hospital Discharge instructions The following attachments cannot be sent through Care Everywhere.Polycystic Ovary Syndrome (Maltese)Back: Strain (Maltese)documented in this encounter [facility]: Instructions Note Date & Type Note Facility Instructions Not on filedocumented in this en counter [facility] [employer] [facility] Instructions Note Date & Type Note Facility Instructions Not on filedocumented in this en counter [facility] Summary Purpose Family History No [...] section and content) DATE CREATED AUTHOR 08/16/2018 [facility] DATE CREATED AUTHOR AUTHOR'S ORGANIZ ATION 07/11/2020 [facility] DATE CREATED AUTHOR AUTHOR'S ORGANIZ ATION 06/01/2023 [facility] DATE CREATED AUTHOR AUTHOR'S ORGANIZ ATION 07/05/2024 [facility] Reason for Visit (unrecogniz ed [...] Care Teams (unrecognized sec tion and content) Staff Occupational Therapist Relationship Specialty Start Date End Date Neptali Fontenot MD [address] [place] [address] PCP - General 09/06/13 Staff Occupational Therapist Relationship Specialty Start Date End Date Neptali Fontenot MD [address] [place] [address] PCP - General 09/06/13 Staff Occupational Therapist Relationship Specialty Start Date End Date Neptali Fontenot MD [address] [place] [address] PCP - General Family Medicine 02/10/19 Staff Occupational Therapist Relationship Specialty Start Date End Date Neptali Fontenot MD [address] [place] [address] PCP - General Family Medicine 02/10/19 [...] BE BASED ON THE PRIMARY CLINICAL RECORDS. [facility] [employer] [facility]. provides no warranty or guarantee of the accuracy or completeness of information in this document.
[2025-07-08 09:36] LABS: Glucose Urine UA NEGATIVE (NEGATIVE)
[2025-07-08 09:52] LABS: Cast Seen? NONE SEEN #/LPF (NONE SEEN); Crystals Seen? None Seen #/HPF (None Seen); Urine Culture Indicated YES-FRMC
== END 2025-07-08 10:03 | disposition home or self-care (01) ==
PROVIDERS: Emergency Provider Emergency Medicine; PCP Family Medicine
DX: R10.9 Unspecified abdominal pain (principal)
CPT/HCPCS: 74176; 81001; 87086; 99284